=== PATIENT | male | born 1960 | race Caucasian/White ===

== ENCOUNTER 2019-10-17 17:07 | Inpatient (IN) | payer OTHER ==
[~2019-10-17 17:07] MED LIST: levETIRAcetam 500 MG IVPREMIX* 500 MG/100 ML BAG IV SCH
[2019-10-17] MEDS ORDERED: NS 0.9% 1000 ML** 1,000 ML IV ONE (17:14)
--- NOTE | 2019-10-17 17:22 | ED ---
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 Per EMS, the patient had been at work and a co-worker heard an unwitnessed thud in his cubicle, and the co-worker found the patient unresponsive with full-body seizure activity. After EMS arrived, and the patient became arousable, he had slurred speech. In the ED , the patient feels better but not completely like himself. He is nauseous and has a headache. He does not remember falling. He denies any fever, chills, erythema of eyes, sore throat, CP, SOB, cough, abdominal pain, vomiting, dysuria , hematuria, myalgia, neck pain, edema, numbness or tingling, or dizziness. His notes a new facial rash. He notes recent stress with his father passing last week. No recent sicknesses. Past medical history of childhood asthma. Nonsmoker, no alcohol use, no substance use. Medications reviewed. Allergies noted. - History of Current Complaint Stated Complaint: SEIZURES PER EMS Time Seen by Provider: 10/17/19 17:14 Hx Obtained From: Patient, Family/Public Affairs Officer - , EMS Onset/Duration: Sudden Onset, Resolved Timing: Sudden Onset Onset Severity: Severe Current Severity: Mild Pain Scale Used: 0-10 Numeric Character: Impaired Speech Aggravating: Unknown Alleviating: Spontanious Resolution Associated Signs and Symptoms: Positive: Headache, Loss of Consciousness, Impaired Speech. Negative: Numbness, Nausea/Vomiting, Fever, Chest Pain, Shortness of Breath TPA Considered: No - confirmed by Dr. Britton at [facility] - Allergy/Home Medications Allergies/Adverse Reactions: Allergies Allergy/AdvReac Type Severity Reaction Status Date / Time environmental Allergy Runny Nose Uncoded 10/17/19 17:44 Home Medications: Home Medications Loratadine/Pseudoephedrine [Allergy Relief D-24Hr Tablet] 1 tab PO DAILY PRN [History Confirmed 10/17/19] PMH/Surg Hx/FS Hx/Imm Hx Endocrine/Hematology History: Denies: Hx Diabetes Cardiovascular History: Denies: Hx Hypertension Respiratory History: Reports: Hx Asthma - as child - Surgical History Surgical History: None Surgery Procedure, Year, and Place: none Infectious Disease History: Denies: Traveled Outside the [place] in Last 30 Days - Family History Known Family History: Negative: Diabetes - Social History Alcohol Use: None Hx Substance Use: No Substance Use Type: Reports: None Hx Tobacco Use: No Smoking Status (MU): Never Smoked Tobacco Review of Systems Negative: Fever, Chills Negative: Erythema Negative: Sore Throat Negative: Chest Pain Negative: Shortness Of Breath, Cough Positive: Nausea. Negative: Abdominal Pain, Vomiting Negative: dysuria, hematuria Negative: Myalgia - neck, Edema Positive: Rash - on face Neurological/Mental Status: Other - LOC; Negative: dizziness Positive: Headache, Slurred Speech. Negative: Paresthesia, Numbness All Other Systems Reviewed And Are Negative: Yes Physical Exam - Summary Physical Exam Summary: Constitutional: Well-developed, Well-nourished, Alert. (-) Distressed Skin: Petechiae on face and around the orbits, I dont appreciate petechiae elseware; Warm, Dry HENT: Normocephalic; Atraumatic Eyes: Conjunctiva normal Neck: Musculoskeletal ROM normal neck. (-) JVD, (-) Stridor, (-) Tracheal deviation Cardio: Rhythm regular, rate normal, Heart sounds normal; Intact distal pulses; The pedal pulses are 2+ and symmetric. Radial pulses are 2+ and symmetric. (-) Murmur Pulmonary/Chest wall: Effort normal. (-) Crackles in bases of both lungs, (-) Respiratory distress, (-) Wheezes, (-) Rales Abd: Soft. (-) Tenderness, (-) Distension, (-) Guarding, (-) Rebound Musculoskeletal: (-) Edema Lymph: (-) Cervical adenopathy Neuro: Alert, Oriented x3, Strength normal, Cranial nerves II-XII are grossly intact. Speech is slightly slurred (-) Dysmetria, (-) Nystagmus, (-) Ataxia by finger to nose testing, (-) Sensory deficit. Psych: Mood and affect Normal GCS: 15 NIH: 1 (see scale) Triage Information Reviewed: Yes Vital Signs Reviewed: Yes - Luca Coma Scale Best Eye Response: 4 - Spontaneous Best Motor Response: 6 - Obeys Commands Best Verbal Response: 5 - Oriented Coma Scale Total: 15 Procedures - Sedation Patient Received Moderate/Deep Sedation with Procedure: No - Lumbar Puncture L4-L5 interspace Procedural Sedation: none Position: Lateral Decubitus - left Lumbar Puncture Note: Lumbar puncture performed in L4-L5 interspace with 5ml fluid obtained. Opening pressure of 29cm. Patient in left lateral decubitus position. He tolerated procedure well. Diagnostics - Laboratory Result Diagrams: 10/17/19 17:43 10/17/19 17:43 Lab Statement: Any lab studies that have been ordered have been reviewed, and results considered in the medical decision making process. - CT Brain CT CT Interpretation Completed By: Radiologist Summary of CT Findings: Impression: 1. Negative for intracranial hemorrhage or gross CT stigmata of ischemic stroke. ED physician has reviewed this report. Head CTA CT Interpretation Completed By: Radiologist Summary of CT Findings: Impression: 1. Unremarkable patent intracranial internal carotid arteries as well as the M1 and M2 segments of the middle cerebral arteries. 2. Unremarkable patent A1 and A2 segments of the anterior cerebral arteries and patent anterior communicating artery. 3. Unremarkable patent basilar artery and cerebellar artery origins. Patent RIGHT posterior cerebral artery is supplied both by the anterior and posterior circulation. Patent LEFT posterior cerebral artery is supplied primarily by a dominant LEFT posterior commuting artery with small contribution from a relative hypoplastic P1 segment. 4. No intracranial aneurysms evident. 5. Normal opacification of the dominant dural venous sinuses. ED physician has reviewed this report. - EKG 1737 Cardiac Rate: NL - 91 BPM EKG Rhythm: Sinus Rhythm Summary of EKG Findings: An EKG at 1737 reveals normal sinus rhythm at 91 BPM. No STEMI. ED physician has reviewed and interpreted this EKG. 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 Non-Paretic Hand: Both Correctly Best Gaze (Only Horizontal Eye Movement): Normal Visual Field Testing: No Visual Loss Facial Paresis-Pt to Smile & Close Eyes or Grimace Symmetry: Normal/Symmetrical Motor Function - Right Arm: No Drift-Holds 10 Seconds Motor Function - Left Arm: No Drift-Holds 10 Seconds Motor Function - Right Leg: No Drift-Holds 10 Seconds Motor Function - Left Leg: No Drift-Holds 10 Seconds Limb Ataxia-Must be out of Proportion to Weakness Present: Absent Sensory (Use Pinprick to Test Arms/Legs/Trunk/Face): Normal Best Language (Describe Picture, Name Items): No Aphasia Dysarthria (Read Several Words): Slurs Some Words Extinction and Inattention: No Abnormality Total Score: 1 NIH Stroke Scale Comment: completed at 1755 Re-Evaluation - Re-Evaluation First Eval Re-Evaluation Time: 17:50 Comment: Patient's states speech seems quiet and similar to when he is tired but is slurred compared to usual if not tired. He states he feels like he is getting weaker. Course/Dx - Course Course Of Treatment: Patient is a 59 y/o M arriving via ambulance with unwitnessed fall with unresponsiveness and full-body seizure activity followed by slurred speech that has improved. Patient doesnt remember falling. He is nauseous and has a headache. No neck pain. Denies chest discomfort, heaviness, or pressure. Physical exam is significant for slightly slurred speech, crackles in both lung bases, petechiae on face and around the orbits. I dont appreciate petechiae elseware. GCS 15, NIH 1. IV access obtained. Patient received fluids, Zofran. Blood work reveals glucose 135, POC glucose 131, lactic acid 3.3, negative troponin. An EKG at 1737 reveals normal sinus rhythm at 91 BPM, no STEMI. Brain CT impression is negative for intracranial hemorrhage or ischemic stroke. Head CTA impression reveals patent right posterior cerebral artery supplied by anterior and posterior circulation, patient left posterior cerebral artery is supplied primarily by a dominant left posterior commuting artery with small contribution from a relative hypoplastic P1 segment. I spoke with Dr. Campos at [facility], and he confirms patients symptoms to most likely be related to seizure. No TPA indicated; TPA relatively contraindicated. Dr. Alegre from neurology agrees with LP and admission to hospitalist. Lumbar puncture performed in L4-L5 interspace with 5ml fluid obtained. Opening pressure of 29cm. Patient in left lateral decubitus position. He tolerated procedure well. I discussed the patients case with Dr. Talley, who accepts the patient for admission. Patient agreeable with plan. - Diagnoses Provider Diagnoses: Petechiae, Slurred speech, Bilateral pneumonia, New onset seizure, Headache - Physician Notifications Discussed Care Of Patient With: Jono Britton - neurology [place] Time Discussed With Above Provider: 18:00 Instructed by Provider To: Other - I spoke with Dr. Britton at [facility], and he confirms patients symptoms to most likely be related to seizure. No TPA indicated; TPA relatively contraindicated. Dr. Alegre from neurology agrees with LP and admission to hospitalist. I discussed the patients case with Dr. Talley, who accepts the patient for admission. - Critical Care Time Critical Care Time: 30-74 min - 60 minutes Discharge ED - Sign-Out/Discharge Documenting (check all that apply): Patient Departure - Patient accepted for admission by Dr. Talley. - Discharge Plan Condition: Stable Disposition: ADMITTED TO [facility] Referrals: Zoran Saxena MD [Primary Care Provider] - - Attestation Statements Document Initiated by Scribe: Yes Documenting Scribe: Gianna Mcdaniels Provider For Whom Scribe is Documenting (Include Credential): Dr. Ok Bishop MD Scribe Attestation: I, Gianna Mcdaniels, scribed for Dr. Ok Bishop MD on 10/17/19 at 1924. Status of Scribe Document: Ready
[2019-10-17] MEDS ORDERED: Iodixanol* (CONTRAST) 320 MG/ML 100 ML SDV IV ONE (17:33)
[2019-10-17 17:51] LABS: ABS Basophils 0.1 10^3/ul (0-0.2); ABS Eosinophils 0.3 10^3/ul (0-0.6); ABS Lymphocytes 2.5 10^3/ul (1.0-4.8); ABS Monocytes 0.9 10^3/ul (0-0.8); ABS Neutrophils 5.9 10^3/ul (1.5-7.7); Hematocrit 43 % (42-52); Hemoglobin 15.3 g/dL (14.0-18.0); Lymphocyte % 25.5 %; Mean Corpuscular HGB Conc 36 g/dL (31-36); Mean Corpuscular Hemoglobin 30 pg (27-31); Mean Corpuscular Volume 85 fL (80-94); Mean Platelet Volume 7.8 fL (7.4-10.4); Platelet Count 280 10^3/uL (150-450); Red Blood Count 5.08 10^6 /uL (4.18-5.48); Red Cell Distribution Width 13 % (10-15); White Blood Count 9.6 10^3/uL (3.5-10.8)
[2019-10-17] MEDS ORDERED: NS 0.9% 1000 ML** 1,500 ML IV ONE (18:01)
[2019-10-17 18:02] LABS: Activated Partial Thrombo Time 27.6 seconds (26.0-38.0); INR 1.02 (0.82-1.09)
[2019-10-17] MEDS ORDERED: Vancomycin(*) 1,500 MG in NS 0.9% 250 ML* 250 ML IVPB ONE (18:13)
[2019-10-17] MEDS ORDERED: cefTRIAXone(*) 2 GM in NS 0.9% 100 ML* 100 ML IVPB ONE (18:13)
[2019-10-17 18:19] LABS: ALT 14 U/L (7-52); AST 18 U/L (13-39); Albumin 4.2 g/dL (3.2-5.2); Albumin/Globulin Ratio 1.8 (1-3); Alkaline Phosphatase 42 U/L (34-104); Anion Gap 8 mmol/L (2-11); BUN/Creatinine Ratio 15.2 (8-20); Blood Urea Nitrogen 15 mg/dL (6-24); CO2 Carbon Dioxide 25 mmol/L (22-32); Calcium 8.9 mg/dL (8.6-10.3); Chloride 106 mmol/L (101-111); Cholesterol 174 mg/dL; EGFR African American 93.6 (>60); EGFR Non-African American 77.4 (>60); Globulin 2.3 g/dL (2-4); Glucose 135 mg/dL (70-100); HDL Cholesterol 41.2 mg/dL; LDL Cholesterol 103 mg/dL; Potassium 3.5 mmol/L (3.5-5.0); Sodium 139 mmol/L (135-145); Total Protein 6.5 g/dL (6.4-8.9); Triglycerides 147 mg/dL
[2019-10-17] MEDS ORDERED: levETIRAcetam 1000MG IVPREMIX* 1,000 MG/100 ML BAG IVPB ONE (18:23)
[2019-10-17] MEDS ORDERED: Ondansetron INJ* 2 MG/ML VIAL IV ONE (18:23)
[2019-10-17 18:52] LABS: C Reactive Protein 1.23 mg/L (<8.01)
[2019-10-17 19:26] LABS: Alcohol < 10 mg/dL (<10)
[2019-10-17] MEDS ORDERED: Acyclovir IV(*) 750 MG in NS 0.9% 250 ML* 250 ML IVPB ONE (19:30)
[2019-10-17 19:34] LABS: Body Fluid Source Cerebral Spinal
[2019-10-17 19:47] LABS: Urine Appearance Clear; Urine Bilirubin Negative (Negative); Urine Blood Negative (Negative); Urine Color Straw; Urine Glucose Negative (Negative); Urine Ketones Negative (Negative); Urine Nitrite Negative (Negative); Urine Protein Negative (Negative); Urine Specific Gravity 1.038 (1.010-1.030); Urine Urobilinogen Negative (Negative)
[2019-10-17 19:48] LABS: CSF Glucose 75 mg/dL (40-70)
[2019-10-17 20:06] LABS: Body Fluid Mono 14 %; Body Fluid Other Cells 8
--- NOTE | 2019-10-17 22:05 | ADMNOTE ---
Subjective Interval History: this is my H/P 59 yo male with no known medical history came in via EMS with possible seizure. Pt was at work when a co-worker found in on the floor unresponsive then his body begun shaking. By the time EMS came, he was arousable, confused with slurred speech. When he made it to the ED, he felt better but does not remember what happened. He is nauseous and has a REED. Denies any chest discomfort, pressure. He has petechiae on face around his eyes. EKG showed NSR. Neurology was consulted with concerns for stroke, recommended a CT head and CTA and all came back negative. An LP was done to rule out meningitis, also negative. This is his first seizure, he has no medical history. No family history of seizures. His father recently from a fall. He does not smoke, does not drink alcohol, does not take any medications. Family History: Unchanged from Admission Social History: Unchanged from Admission Past Medical History: Unchanged from Admission Review of Systems - Measurements Intake and Output: Intake and Output Last 24 Hours 10/15/19 10/16/19 10/17/19 10/18/19 06:59 06:59 06:59 06:59 Intake Total 2600 Balance 2600 Weight 225 lb 12.054 oz Intake: IV Fluids 2600 - Review of Systems Constitutional Symptoms: Negative: Weight Gain, Weight Loss, Weakness, Fatigue, Fever, Night Sweats, Unexplained Falls, Other Dermatology: Negative: Normal, Rash, Skin Lesions, Cancer, Skin Lumps, Other HEENT: Negative: Normal, Change in Hearing, Vertigo, Dental Problems, Tinnitus, Sinus Problem, Other Eyes: Negative: Normal, Change in Vision, Double Vision, Eye Pain, Glaucoma, Cataract, Contacts or Glasses, Other Thyroid: Negative: Normal, Goiter, Thyroid Nodule, Cold Intolerance, Heat Intolerance , Sweatiness, Tremor, Frequent Defecation, Constipation, Palpitations, Primary Hypothyroidism, Primary Hyperthyroidism, Weight Loss, Weight Gain, Change in Skin/Hair, Change in Menstruation, Radiation Exposure, Other Pulmonary: Negative: Normal, Cough, Sputum, Hemoptysis, Wheezing, Respiratory Distress, Shortness of Breath, COPD, Asthma, Exercise Intolerance, Home Oxygen, Other Cardiology: Negative: Normal, Chest Pain, Shortness of Breath, Palpitations, Swelling of Ankles, Peripheral Vascular Dis, Edema, Faintness, Syncope, Claudication, Proximal NocturnalDyspnea, Orthopnoea, Other Gastroenterology: Negative: Normal, Abdominal Pain, Nausea, Vomiting, Anorexia, Indigestion, Difficulty Swallowing, Heartburn, Constipation, Diarrhea, Blood in Stools, Change in Bowel Habits, Haematemesis, Melena, Other Musculoskeletal: Negative: Joint Pain, Joint Stiffness, Arthritis, Osteoporosis, Low Back Pain , Sciatica, Joint Deformities, Kyphoscoliosis, Other Hematologic/Lymphatic: Negative: Anemia, Easy Bruising, Hx Leukemia, Hx Lymphoma, Use of Anticoagulant, Use of Antiplatelet Drugs, Other Neurology: Positive: Headache Negative: Normal, Migraines, Change in Vision, Diplopia, Dizziness, Change in Balancing, Change in Coordination, Change in Memory, Change in Speech, Change in Sphincter Function, Change in Walking, Numbness\Paresthesiae, Unexplained Weakness, Hx of Stroke\TIA, Hx of Seizures, Other Psychiatry: Negative: Normal, Depression, Anxiety, Depressed Mood, Anhedonia, Sexual Dysfunction, Weight Change, Guilt Feelings, Tearfulness, Unusual Fatigue, Unusual Anxiety, Suicidal Ideation, Hypomania, Eating Disorders, Other Objective Active Medications: Levetiracetam (Keppra Iv Premix*) 500 mg in 100 mls @ 400 mls/hr IV Q12H SLOAN Vital Signs - 8 hr 10/17/19 10/17/19 10/17/19 17:12 17:36 17:41 Temperature 96.5 F Pulse Rate 86 66 87 Respiratory 17 19 19 Rate Blood Pressure 136/79 136/79 (mmHg) O2 Sat by Pulse 96 86 96 Oximetry 10/17/19 10/17/19 10/17/19 17:57 18:00 18:02 Temperature Pulse Rate 80 85 84 Respiratory 17 19 17 Rate Blood Pressure 127/93 121/89 (mmHg) O2 Sat by Pulse 95 96 95 Oximetry 10/17/19 18:07 Temperature Pulse Rate 82 Respiratory 18 Rate Blood Pressure 126/86 (mmHg) O2 Sat by Pulse 94 Oximetry Oxygen Devices in Use Now: None Appearance: sluggish but oriented Eyes: No Scleral Icterus, PERRLA Ears/Nose/Mouth/Throat: NL Teeth, Lips, Gums, Mucous Membranes Moist Neck: NL Appearance and Movements; NL JVP, Trachea Midline Respiratory: Symmetrical Chest Expansion and Respiratory Effort, Clear to Auscultation Cardiovascular: NL Sounds; No Murmurs; No JVD, No Edema Abdominal: NL Sounds; No Tenderness; No Distention Lymphatic: No Cervical Adenopathy Skin: No Rash or Ulcers, No Nodules or Sclerosis Neurological: Alert and Oriented x 3, NL Sensation, NL Gait, NL Muscle Strength and Tone Result Diagrams: 10/17/19 17:43 10/17/19 17:43 Microbiology and Other Data: Microbiology 10/17/19 19:15 CSF Gram Stain (Tube 3) - Preliminary Cerebral Spinal Fluid Assess/Plan/Problems-Billing Assessment: - Patient Problems (1) Seizure Current Visit: Yes Status: Acute Code(s): R56.9 - UNSPECIFIED CONVULSIONS SNOMED Code(s): 41631898 Comment: new onset seizure witnessed by co-worker. Pt was postictal following the event Neurology was consulted, pt bolused iwth keppra. CTA and CT head normal. LP was normal. Will cont with Keppra 500 BID Spot EEG in am. MRI brain. (2) DVT prophylaxis Current Visit: Yes Status: Acute Code(s): Z29.9 - ENCOUNTER FOR PROPHYLACTIC MEASURES, UNSPECIFIED SNOMED Code(s): 909182648 Comment: josiah (3) Full code status Current Visit: Yes Status: Acute Code(s): Z78.9 - OTHER SPECIFIED HEALTH STATUS SNOMED Code(s): 802010205
[2019-10-18] MEDS: Enoxaparin(*) 30 MG/0.3 ML SYR SUBCUT SCH ×2 (00:34→23:11)
[2019-10-18] MEDS ORDERED: Acyclovir IV(*) 750 MG in NS 0.9% 250 ML* 250 ML IVPB SCH (03:30)
[2019-10-18] MEDS ORDERED: LORazepam INJ* 2 MG/ML 1 ML VIAL ONE ×2 (03:40→10:31)
[2019-10-18] MEDS ORDERED: levETIRAcetam 1000MG IVPREMIX* 1,000 MG/100 ML BAG IVPB ONE (04:04)
--- NOTE | 2019-10-18 04:52 | PN ---
Hospitalist Progress Note CAT call for fall and seizures Pt found unresponsive on the floor in the bathroom, fall unwitnessed. Then he went clonic for about 2 minutes. Pt was postictal for about 15 min. He responded to questions appropriately, he was oriented but sluggish. Pupils reactive. Stat CT head and CT spine for unwitnessed fall. Reviewed telemetry. There was a brief moment of bradycardia coinciding with the fall. But this was likely ictal bradycardia from the seizure itself. Otherwise no abnormal rhythm Transfer to ICU for close monitoring. Discussed with neurology, plan is to load with Keppra once more and continuing Keppra 500 BID. I would keep him NPO, get MRI in am and spot EEG as originally planned Seizure precautions and tele.
[2019-10-18 05:16] LABS: ABS Basophils 0.1 10^3/ul (0-0.2); ABS Lymphocytes 0.7 10^3/ul (1.0-4.8); ABS Monocytes 0.5 10^3/ul (0-0.8); ABS Neutrophils 13.1 10^3/ul (1.5-7.7); Eosinophil % 0.1 %; Hematocrit 42 % (42-52); Hemoglobin 14.4 g/dL (14.0-18.0); Lymphocyte % 4.6 %; Mean Corpuscular HGB Conc 34 g/dL (31-36); Mean Corpuscular Hemoglobin 29 pg (27-31); Mean Corpuscular Volume 85 fL (80-94); Mean Platelet Volume 7.8 fL (7.4-10.4); Platelet Count 258 10^3/uL (150-450); Red Blood Count 4.94 10^6 /uL (4.18-5.48); Red Cell Distribution Width 14 % (10-15); White Blood Count 14.4 10^3/uL (3.5-10.8)
[2019-10-18 05:31] LABS: BUN/Creatinine Ratio 13.5 (8-20); Calcium 8.6 mg/dL (8.6-10.3); EGFR African American 105.9 (>60); EGFR Non-African American 87.5 (>60); Potassium 3.7 mmol/L (3.5-5.0)
[2019-10-18] MEDS: Acetaminophen TAB* 325 MG PO PRN (08:11)
--- NOTE | 2019-10-18 10:25 | ECHO ---
*[facility]* [place] [address] Fax #: [phone] Transthoracic Echocardiogram Patient: Maco Montenegro : 1960 Study Date: 10/18/2019 Age: 59 Gender: M HR: 87 bpm Height: 71 in /180.3 cm BSA: 2.17 m^2 Weight: 214.6 lb /97.5 kg BMI: 30 kg/m^2 *Speech Therapist Early Intervention: Oralia Philip *Referring Physician: * Lulu Haider *Reading Physician: * Mulugeta Boston MD Indications: Syncope. History: Syncope. Conclusions Summary: - Left ventricle: The cavity size is normal. Wall thickness is mildly increased. Systolic function is normal. The estimated ejection fraction is 60-65%. - Normal cardiac chamber sizes. - Functionally benign heart valves. - There is no prior echocardiogram available to compare with at this time. Study data: Transthoracic echocardiogram. Procedure: Transthoracic echocardiography was performed. Image quality was good. Complete 2D, spectral Doppler, and color flow Doppler. Location: ICU Patient status: Inpatient. Patient room number: 6. Rhythm: Normal sinus rhythm. Findings Left ventricle: The cavity size is normal. Wall thickness is mildly increased. Systolic function is normal. The estimated ejection fraction is 60-65%. Wall motion is normal; there are no regional wall motion abnormalities. Left ventricular diastolic function parameters are indeterminate. Right ventricle: The cavity size is normal. Systolic function is normal. Left atrium: The atrium is normal in size. Right atrium: The atrium is normal in size. Mitral valve: The valve is structurally normal. There is trace regurgitation. Aortic valve: The valve is structurally normal. The valve is trileaflet. Cusp separation is normal. Transvalvular velocity is within the normal range. There is no evidence of stenosis. There is no significant regurgitation. Tricuspid valve: The valve is structurally normal. There is trace regurgitation. Pulmonic valve: The valve is structurally normal. There is no evidence of stenosis. There is trace regurgitation. Aorta: The aortic root appears normal. The aortic arch appears normal. Pericardium: There is no significant pericardial effusion. Pulmonary arteries: Systolic pressure can not be accurately estimated. Systemic veins: Inferior vena cava: Not well visualized. Pulmonary veins: The Pulmonary veins appear normal. Measurements Left ventricle Value Ref Right atrium continued Value Ref MENA, LAX 4.3 cm 4.2 - 5.8 ML dim, ES, A4C 3.0 cm 2.6 - 4.4 ESD, LAX 2.7 cm 2.5 - 4.0 SI dim, ES, A4C 5.0 cm 3.4 - 5.3 FS, LAX 38 % 25 - 43 PW, ED, LAX (H) 1.2 cm 0.6 - 1.0 Aortic valve Value Ref E', lat ignacia, TDI 11.5 cm/sec >=10.0 Peak v, S 1.34 m/sec - -------- E/e', lat ignacia, 7 VTI, S 26.0 cm ---- ----- TDI Mean grad, S 4.0 mm Hg --------- E', med ignacia, TDI 8.2 cm/sec >=7.0 Peak grad, S 7.0 mm Hg - -------- E/e', med ignacia, 10 YUNIER, VTI 2.51 cm^2 ---- ----- TDI YUNIER, Vmax 2.60 cm^2 --------- E', avg, TDI 9.9 cm/sec E/e', avg, TDI 8 <=14 Mitral valve Value R ef Peak E 0.8 m/sec --------- LVOT Value Ref Peak A 0.97 m/sec --------- Diam, S 2.00 cm Decel time 93 ms --------- Area 3.1 cm^2 Peak grad, D 2.6 mm Hg --------- Peak timo, S 1.11 m/sec Peak E/A ratio 0.8 --------- Mean grad, S 3 mm Hg SV 65 ml Pulmonic valve Value Ref Peak v, S 0.96 m/sec --------- Ventricular septum Value Ref Peak grad, S 4.0 mm Hg --------- IVS, ED (H) 1.1 cm 0.6 - 1.0 Aortic root Value Ref Right ventricle Value Ref Root diam 3.5 cm <4.3 MENA, LAX 2.7 cm MENA minor ax, 2.9 cm 1.9 - 3.5 Ascending aorta Value Ref A4C mid AAo AP diam, S 3.3 cm --------- Left atrium Value Ref Aortic arch Value Ref AP dim, ES 3.90 cm 3.00 - Arch diam 2.5 cm --------- 4.00 ML dim, A4C 3.5 cm Decending aorta Value Ref SI dim, A4C 5.3 cm Enmanuel peak timo 1.16 m/sec --------- Vol/bsa, ES, A/L 23 ml/m^2 16 - 34 Right atrium Value Ref SI dim, ES 5.0 cm 3.4 - 5.3 Legend: (L) and (H) shilpa values outside specified reference range. Prepared and electronically signed by Mulugeta Boston MD 10/18/2019 10:24
[2019-10-18] MEDS ORDERED: LORazepam INJ* 2 MG/ML 1 ML VIAL IV PUSH PRN (10:30)
[2019-10-18] MEDS ORDERED: Lorazepam PYXIS KEY PRN (10:30)
[2019-10-18] MEDS ORDERED: Lorazepam PYXIS KEY ONE (10:31)
[2019-10-18] MEDS ORDERED: Gadoteridol* (CONTRAST) 279.3 MG/ML 10 ML IV ONE ×2 (11:05→11:40)
[2019-10-18] MEDS: NS 0.9% 1000 ML** 1,000 ML IV SCH (11:35)
[2019-10-18] MEDS ORDERED: levETIRAcetam 500 MG IVPREMIX* 500 MG/100 ML BAG IV ONE (11:42)
--- NOTE | 2019-10-18 11:53 | PN ---
Progress Note - Progress Note Date of Service: 10/18/19 Note: Progress Note -- Critical Care 24 hour events/significant events: - Patient transferred to ICU after having a generalized seizure in the bathroom. He was started on keppra on admission - VSS, no further seizures overnight. Neurology consulted. 10/18/19 - Around 1120am, immediately after MRI was completed, as soon as he was taken out of patient had an episode of bradycardia into 30's, and then noted to have a generalized seizure. This lasted about 30 seconds and resolved spontaneously. Was given a total of 1.5G keppra. - Around 1330, monitor alarmed for bradycardic 30s and then brief reading of asystole. Patient was found to have a left and upward gaze, nonresponsive. Did have pulse. This lasted about 15 seconds and resolved. Given 1mg Ativan. He returned to baseline ROS: negative except for pertinent positives mentioned above Tele: NSR Vitals: Vital Signs 10/17/19 10/17/19 10/17/19 17:12 17:36 17:41 Temperature 96.5 F Pulse Rate 86 66 87 Respiratory 17 19 19 Rate Blood Pressure 136/79 136/79 (mmHg) O2 Sat by Pulse 96 86 96 Oximetry 10/17/19 10/17/19 10/17/19 17:57 18:00 18:02 Temperature Pulse Rate 80 85 84 Respiratory 17 19 17 Rate Blood Pressure 127/93 121/89 (mmHg) O2 Sat by Pulse 95 96 95 Oximetry 10/17/19 10/17/19 10/17/19 18:07 18:17 18:22 Temperature Pulse Rate 82 80 75 Respiratory 18 18 9 Rate Blood Pressure 126/86 126/87 136/86 (mmHg) O2 Sat by Pulse 94 95 97 Oximetry 10/17/19 10/17/19 10/17/19 18:27 18:32 18:37 Temperature Pulse Rate 88 89 Respiratory 20 20 21 Rate Blood Pressure 130/89 138/97 136/94 (mmHg) O2 Sat by Pulse 96 99 Oximetry 10/17/19 10/17/19 10/17/19 18:42 18:47 18:53 Temperature Pulse Rate 88 87 95 Respiratory 21 21 19 Rate Blood Pressure 141/93 132/103 162/107 (mmHg) O2 Sat by Pulse 99 99 100 Oximetry 10/17/19 10/17/19 10/17/19 19:00 19:43 19:53 Temperature Pulse Rate 115 Respiratory 25 21 23 Rate Blood Pressure 128/86 149/102 (mmHg) O2 Sat by Pulse 99 Oximetry 10/17/19 10/17/19 10/17/19 20:00 20:03 20:13 Temperature Pulse Rate Respiratory 20 22 20 Rate Blood Pressure 141/90 150/97 (mmHg) O2 Sat by Pulse 96 Oximetry 10/17/19 10/17/19 10/17/19 20:39 20:43 20:54 Temperature Pulse Rate Respiratory 20 17 26 Rate Blood Pressure 127/92 138/93 152/93 (mmHg) O2 Sat by Pulse Oximetry 10/17/19 10/17/19 10/17/19 21:00 21:03 21:13 Temperature Pulse Rate Respiratory 19 21 21 Rate Blood Pressure 129/90 135/87 (mmHg) O2 Sat by Pulse Oximetry 10/17/19 10/17/19 10/17/19 21:23 21:33 21:43 Temperature Pulse Rate Respiratory 14 17 24 Rate Blood Pressure 131/96 122/82 123/85 (mmHg) O2 Sat by Pulse Oximetry 10/17/19 10/17/19 10/17/19 21:53 22:00 22:03 Temperature Pulse Rate Respiratory 15 16 17 Rate Blood Pressure 135/95 135/90 (mmHg) O2 Sat by Pulse Oximetry 10/17/19 10/17/19 10/17/19 22:13 22:23 22:26 Temperature Pulse Rate Respiratory 25 17 18 Rate Blood Pressure 142/100 127/90 (mmHg) O2 Sat by Pulse Oximetry 10/17/19 10/17/19 10/17/19 22:32 22:43 22:54 Temperature 98.6 F Pulse Rate Respiratory 18 23 Rate Blood Pressure 132/83 141/109 (mmHg) O2 Sat by Pulse Oximetry 10/17/19 10/17/19 10/17/19 23:00 23:03 23:09 Temperature 98.6 F Pulse Rate 86 Respiratory 17 22 22 Rate Blood Pressure 137/86 137/86 (mmHg) O2 Sat by Pulse 99 Oximetry 10/17/19 10/18/19 10/18/19 23:15 03:19 04:31 Temperature 97.0 F 97.4 F Pulse Rate 85 78 89 Respiratory 18 16 16 Rate Blood Pressure 130/45 122/75 136/90 (mmHg) O2 Sat by Pulse 100 96 93 Oximetry 10/18/19 10/18/19 10/18/19 04:38 04:45 05:00 Temperature 95.5 F Pulse Rate 93 84 83 Respiratory 19 17 17 Rate Blood Pressure 136/90 138/92 138/96 (mmHg) O2 Sat by Pulse 94 96 97 Oximetry 10/18/19 10/18/19 10/18/19 05:15 05:30 05:46 Temperature Pulse Rate 78 79 80 Respiratory 17 15 16 Rate Blood Pressure 116/82 122/71 116/80 (mmHg) O2 Sat by Pulse 98 100 99 Oximetry 10/18/19 10/18/19 10/18/19 05:52 06:00 07:00 Temperature Pulse Rate 79 86 Respiratory 16 17 18 Rate Blood Pressure 127/80 162/95 (mmHg) O2 Sat by Pulse 99 97 Oximetry 10/18/19 10/18/19 10/18/19 07:59 08:00 09:00 Temperature 99.1 F Pulse Rate 86 92 Respiratory 16 19 Rate Blood Pressure 139/91 154/99 (mmHg) O2 Sat by Pulse 97 95 Oximetry 10/18/19 10/18/19 10/18/19 10:00 10:04 11:00 Temperature Pulse Rate 91 90 Respiratory 17 17 17 Rate Blood Pressure 153/92 (mmHg) O2 Sat by Pulse 95 95 Oximetry 10/18/19 10/18/19 10/18/19 11:28 11:34 11:56 Temperature 98.1 F Pulse Rate 115 107 Respiratory 23 Rate Blood Pressure 142/86 (mmHg) O2 Sat by Pulse 95 96 Oximetry 10/18/19 10/18/19 10/18/19 12:00 13:00 13:01 Temperature Pulse Rate 99 91 91 Respiratory 17 24 15 Rate Blood Pressure 145/88 115/91 (mmHg) O2 Sat by Pulse 96 94 93 Oximetry 10/18/19 13:32 Temperature Pulse Rate Respiratory 18 Rate Blood Pressure (mmHg) O2 Sat by Pulse Oximetry Intake and Output Last 24 Hours 10/16/19 10/17/19 10/18/19 10/19/19 06:59 06:59 06:59 06:59 Intake Total 2600 120 Output Total 300 400 Balance 2300 -280 Weight 209 lb 7.026 oz 209 lb 7.026 oz Intake: IV Fluids 2600 Oral 120 Output: Straight Cath 300 Residual 400 Temperature Probe 400 Other: Estimated Void Small # Voids 5 4 O2: RA Infusions: None Medications: Acetaminophen (Tylenol Tab*) 650 mg PO Q6H PRN PRN Reason: PAIN - MILD Last Admin: 10/18/19 08:11 Dose: 650 mg Enoxaparin Sodium (Lovenox(*)) 30 mg SUBCUT Q24H [facility] Last Admin: 10/18/19 00:34 Dose: 30 mg Sodium Chloride (Ns 0.9% 1000 Ml) 1,000 mls @ 75 mls/hr IV PER RATE [facility] Last Admin: 10/18/19 11:35 Dose: 75 mls/hr Levetiracetam (Keppra Iv Premix*) 1,000 mg in 100 mls @ 400 mls/hr IVPB 0900, 2101 [facility] Last Admin: 10/18/19 11:57 Dose: 400 mls/hr Valproic Acid 1,000 mg/ Sodium (Chloride) 110 mls @ 110 mls/hr IVPB ONCE ONE Stop: 10/18/19 15:29 Ketorolac Tromethamine (Toradol Inj*) 15 mg IV PUSH Q6H PRN PRN Reason: PAIN - MILD Lorazepam (Ativan Inj*) 2 mg IV PUSH Q2H PRN PRN Reason: seizures Miscellaneous (Ativan Pyxis Burg[place]) 1 ea N/A .ATIVAN IV BURGESS PRN PRN Reason: PYXIS BURGESS Valproic Acid (Depacon Iv(*)) 750 mg IVPB Q8HR [facility] Physical Exam: Constitutional: awake, alert, no distress, no diaphoresis Head: normocephalic, atraumatic Eyes: no pallor, no icterus ENT: moist mucous membranes Neck: soft, supple, no jvd, no stridor CVS: normal rate, regular, no murmur Chest/Resp: bilateral air entry, no rhales, no wheeze, no rhonchi, no acc muscle use Abdomen/GI: soft, nontender, nondistended, BS+ Ext/Msk: warm, pulses+, no edema Skin: intact, warm Neuro: awake, alert, orientedx3, moving all extremities, speech appears slowed and that is confirmed by his at the bedside Psych: normal affect Labs: Laboratory Results - last 24 hr 10/17/19 10/17/19 10/17/19 17:35 17:43 17:43 WBC 9.6 RBC 5.08 Hgb 15.3 Hct 43 MCV 85 MCH 30 MCHC 36 RDW 13 Plt Count 280 MPV 7.8 Neut % (Auto) 61.3 Lymph % (Auto) 25.5 Mineral % (Auto) 9.3 Eos % (Auto) 3.0 Baso % (Auto) 0.9 Absolute Neuts (auto) 5.9 Absolute Lymphs (auto) 2.5 Absolute Monos (auto) 0.9 H Absolute Eos (auto) 0.3 Absolute Basos (auto) 0.1 Absolute Nucleated RBC 0.0 Nucleated RBC % 0.0 INR (Anticoag Therapy) 1.02 APTT 27.6 Sodium Potassium Chloride Carbon Dioxide Anion Gap BUN Creatinine Est GFR ( Amer) Est GFR (Non-Af Amer) BUN/Creatinine Ratio Glucose POC Glucose (mg/dL) 131 H Lactic Acid Calcium Total Bilirubin AST ALT Alkaline Phosphatase Troponin I C-Reactive Protein Total Protein Albumin Globulin Albumin/Globulin Ratio Triglycerides Cholesterol LDL Cholesterol HDL Cholesterol TSH Urine Color Urine Appearance Urine pH Ur Specific [place] Urine Protein Urine Ketones Urine Blood Urine Nitrate Urine Bilirubin Urine Urobilinogen Ur Leukocyte Esterase Urine WBC (Auto) Urine RBC (Auto) Urine Bacteria Urine Glucose Fluid Source Fluid Volume Fluid Color Fluid Appearance Fluid WBC Fluid RBC Fluid Tot Cell Count Fluid Neutrophils Fluid Lymphocytes Fluid Monocytes Fluid Other Cells Fluid Cell Count Rvw By Fluid Comment CSF Cell Count Tube # CSF Glucose CSF Total Protein Serum Alcohol 10/17/19 10/17/19 10/17/19 17:43 17:43 19:15 WBC RBC Hgb Hct MCV MCH MCHC RDW Plt Count MPV Neut % (Auto) Lymph % (Auto) Mineral % (Auto) Eos % (Auto) Baso % (Auto) Absolute Neuts (auto) Absolute Lymphs (auto) Absolute Monos (auto) Absolute Eos (auto) Absolute Basos (auto) Absolute Nucleated RBC Nucleated RBC % INR (Anticoag Therapy) APTT Sodium 139 Potassium 3.5 Chloride 106 Carbon Dioxide 25 Anion Gap 8 BUN 15 Creatinine 0.99 Est GFR ( Amer) 93.6 Est GFR (Non-Af Amer) 77.4 BUN/Creatinine Ratio 15.2 Glucose 135 H POC Glucose (mg/dL) Lactic Acid 3.3 H* Calcium 8.9 Total Bilirubin 0.40 AST 18 ALT 14 Alkaline Phosphatase 42 Troponin I 0.00 C-Reactive Protein 1.23 Total Protein 6.5 Albumin 4.2 Globulin 2.3 Albumin/Globulin Ratio 1.8 Triglycerides 147 Cholesterol 174 LDL Cholesterol 103 HDL Cholesterol 41.2 TSH Urine Color Urine Appearance Urine pH Ur Specific [place] Urine Protein Urine Ketones Urine Blood Urine Nitrate Urine Bilirubin Urine Urobilinogen Ur Leukocyte Esterase Urine WBC (Auto) Urine RBC (Auto) Urine Bacteria Urine Glucose Fluid Source Fluid Volume Fluid Color Fluid Appearance Fluid WBC Fluid RBC Fluid Tot Cell Count Fluid Neutrophils Fluid Lymphocytes Fluid Monocytes Fluid Other Cells Fluid Cell Count Rvw By Fluid Comment CSF Cell Count Tube # CSF Glucose 75 H CSF Total Protein 54 H Serum Alcohol < 10 10/17/19 10/17/19 10/17/19 19:15 19:20 21:03 WBC RBC Hgb Hct MCV MCH MCHC RDW Plt Count MPV Neut % (Auto) Lymph % (Auto) Mineral % (Auto) Eos % (Auto) Baso % (Auto) Absolute Neuts (auto) Absolute Lymphs (auto) Absolute Monos (auto) Absolute Eos (auto) Absolute Basos (auto) Absolute Nucleated RBC Nucleated RBC % INR (Anticoag Therapy) APTT Sodium Potassium Chloride Carbon Dioxide Anion Gap BUN Creatinine Est GFR ( Amer) Est GFR (Non-Af Amer) BUN/Creatinine Ratio Glucose POC Glucose (mg/dL) Lactic Acid 1.8 Calcium Total Bilirubin AST ALT Alkaline Phosphatase Troponin I C-Reactive Protein Total Protein Albumin Globulin Albumin/Globulin Ratio Triglycerides Cholesterol LDL Cholesterol HDL Cholesterol TSH Urine Color Straw Urine Appearance Clear Urine pH 7.0 Ur Specific [place] 1.038 H Urine Protein Negative Urine Ketones Negative Urine Blood Negative Urine Nitrate Negative Urine Bilirubin Negative Urine Urobilinogen Negative Ur Leukocyte Esterase Negative Urine WBC (Auto) Urine RBC (Auto) Urine Bacteria Urine Glucose Negative Fluid Source Cerebral spinal Fluid Volume 2.0 Fluid Color Colorless Fluid Appearance Clear Fluid WBC 16 Fluid RBC 16 Fluid Tot Cell Count 73 Fluid Neutrophils Not Reportable Fluid Lymphocytes 86 Fluid Monocytes 14 Fluid Other Cells 8 Fluid Cell Count Rvw By Fluid Comment CSF Cell Count Tube # 4 CSF Glucose CSF Total Protein Serum Alcohol 10/18/19 10/18/19 10/18/19 05:00 05:00 11:48 WBC 14.4 H RBC 4.94 Hgb 14.4 Hct 42 MCV 85 MCH 29 MCHC 34 RDW 14 Plt Count 258 MPV 7.8 Neut % (Auto) 90.9 Lymph % (Auto) 4.6 Mineral % (Auto) 3.8 Eos % (Auto) 0.1 Baso % (Auto) 0.6 Absolute Neuts (auto) 13.1 H Absolute Lymphs (auto) 0.7 L Absolute Monos (auto) 0.5 Absolute Eos (auto) 0.0 Absolute Basos (auto) 0.1 Absolute Nucleated RBC 0.0 Nucleated RBC % 0.0 INR (Anticoag Therapy) APTT Sodium 136 Potassium 3.7 Chloride 107 Carbon Dioxide 20 L Anion Gap 9 BUN 12 Creatinine 0.89 Est GFR ( Amer) 105.9 Est GFR (Non-Af Amer) 87.5 BUN/Creatinine Ratio 13.5 Glucose 185 H POC Glucose (mg/dL) Lactic Acid Calcium 8.6 Total Bilirubin AST ALT Alkaline Phosphatase Troponin I C-Reactive Protein Total Protein Albumin Globulin Albumin/Globulin Ratio Triglycerides Cholesterol LDL Cholesterol HDL Cholesterol TSH 2.42 Urine Color Urine Appearance Urine pH Ur Specific [place] Urine Protein Urine Ketones Urine Blood Urine Nitrate Urine Bilirubin Urine Urobilinogen Ur Leukocyte Esterase Urine WBC (Auto) Urine RBC (Auto) Urine Bacteria Urine Glucose Fluid Source Fluid Volume Fluid Color Fluid Appearance Fluid WBC Fluid RBC Fluid Tot Cell Count Fluid Neutrophils Fluid Lymphocytes Fluid Monocytes Fluid Other Cells Fluid Cell Count Rvw By Fluid Comment CSF Cell Count Tube # CSF Glucose CSF Total Protein Serum Alcohol 10/18/19 13:00 WBC RBC Hgb Hct MCV MCH MCHC RDW Plt Count MPV Neut % (Auto) Lymph % (Auto) Mineral % (Auto) Eos % (Auto) Baso % (Auto) Absolute Neuts (auto) Absolute Lymphs (auto) Absolute Monos (auto) Absolute Eos (auto) Absolute Basos (auto) Absolute Nucleated RBC Nucleated RBC % INR (Anticoag Therapy) APTT Sodium Potassium Chloride Carbon Dioxide Anion Gap BUN Creatinine Est GFR ( Amer) Est GFR (Non-Af Amer) BUN/Creatinine Ratio Glucose POC Glucose (mg/dL) Lactic Acid Calcium Total Bilirubin AST ALT Alkaline Phosphatase Troponin I C-Reactive Protein Total Protein Albumin Globulin Albumin/Globulin Ratio Triglycerides Cholesterol LDL Cholesterol HDL Cholesterol TSH Urine Color Yellow Urine Appearance Clear Urine pH 6.0 Ur Specific [place] 1.017 Urine Protein Negative Urine Ketones Negative Urine Blood 2+ A Urine Nitrate Negative Urine Bilirubin Negative Urine Urobilinogen Negative Ur Leukocyte Esterase Negative Urine WBC (Auto) Trace(0-5/hpf) Urine RBC (Auto) 3+(>10/hpf) A Urine Bacteria Absent Urine Glucose Negative Fluid Source Fluid Volume Fluid Color Fluid Appearance Fluid WBC Fluid RBC Fluid Tot Cell Count Fluid Neutrophils Fluid Lymphocytes Fluid Monocytes Fluid Other Cells Fluid Cell Count Rvw By Fluid Comment CSF Cell Count Tube # CSF Glucose CSF Total Protein Serum Alcohol Imaging: Chest xray 10/18: Low lung volumes, mild right basilar subsegmental atelectasis Echo 10/18: EF 60-65% Cervical spine CT: No acute findings CTH 10/18: No acute changes CTA head and neck: negative Assessment: 59M with no known medical history presents on 10/17 after experiencing a generalized seizure at work with a post-ictal period. Seizure lasted about 2 minutes. He was admitted to floor and then had another generalized seizure while in the bathroom. This also lasted 2 minutes. Transferred to ICU for monitoring. 10/18: Patient had another generalized seizures in the MRI room and then a partial seizure about 2hours later. - New onset seizures - Bradycardia Plan: Neuro- - New onset seizures: acute. EEG neg this AM. MRI neg for abnormalities. LP done in ED and somewhat unremarkable - Will be repeating LP and sending out additional labs. Started empiric coverage for meningitis. - Increased Keppra to 1G BID and added depakote after 3rd seizure - Ativan PRN only for seizures -Delirium prec; avoid BDZ CVS- - Has been having bradycardia into 30's either right before or during the seizures. There was one reading of asystole for 5-10seconds the last episode. Resolved without intervention. Cardiology was consulted -Maintain MAP>65 Resp- - No active issues -Keep sat>92% -Aspiration prec, Pulmonary Toilet ID- Afebrile but WBC slightly elevated. Recurrent seizures. R/o meningitis. Started empiric antibiotics GI- -Nutrition: NPO until seizure free for 24hrs Renal- -strict I/O, replete to keep K>4, Mg>2 -thomas since patient has been having urinary retention and needed 2 straight caths Heme- - Lovenox for DVT proph Endo-Maintain BG<200, insulin protocol as needed Musculsk- pressure ulcer prophylaxis. Bedrest. Wounds- none Nutrition-NPO DVT prophylaxis:lovenox Thomas Cathetor: Disposition: Patient requires Critical Care/ICU for frequent seizures, unknown etiology, r/o meningitis Patient clinical status: critical Code Status: FULL Total Critical Care time is 60 minutes
[2019-10-18] MEDS: levETIRAcetam 1000MG IVPREMIX* 1,000 MG/100 ML BAG IVPB SCH ×2 (11:57→20:40)
[2019-10-18] MEDS ORDERED: levETIRAcetam 1000MG IVPREMIX* 1,000 MG/100 ML BAG IVPB SCH (12:00)
[2019-10-18 12:46] LABS: TSH (Thyroid Stimulating Horm) 2.42 mcIU/mL (0.34-5.60)
[2019-10-18 13:19] LABS: Urine Appearance Clear; Urine Bilirubin Negative (Negative); Urine Blood 2+ (Negative); Urine Color Yellow; Urine Glucose Negative (Negative); Urine Ketones Negative (Negative); Urine Nitrite Negative (Negative); Urine Protein Negative (Negative); Urine Specific Gravity 1.017 (1.010-1.030); Urine Urobilinogen Negative (Negative)
[2019-10-18 13:23] LABS: Urine Bacteria Absent (Absent); Urine Red Blood Cell 3+(>10/hpf) (Absent); Urine White Blood Cell Trace(0-5/hpf) (Absent)
[2019-10-18] MEDS ORDERED: Atropine SYRINGE* 0.1 MG/ML 10 ML SYRINGE (1 MG) ONE ×2 (13:28→23:55)
[2019-10-18 14:27] LABS: Albumin 4.3 g/dL (3.2-5.2); Calcium 9.3 mg/dL (8.6-10.3); Potassium 3.7 mmol/L (3.5-5.0); Total Bilirubin 0.7 mg/dL (0.2-1.0)
[2019-10-18] MEDS ORDERED: Valproic Acid IV(*) 1,000 MG in NS 0.9% 100 ML* 100 ML IVPB ONE (14:30)
[2019-10-18 14:32] LABS: Albumin/Globulin Ratio 1.8 (1-3); BUN/Creatinine Ratio 11.1 (8-20); EGFR African American 84.7 (>60); Globulin 2.4 g/dL (2-4); Total Protein 6.7 g/dL (6.4-8.9)
[2019-10-18] MEDS: Acyclovir IV(*) 750 MG in NS 0.9% 250 ML* 250 ML IVPB SCH ×2 (15:18→23:09)
[2019-10-18 15:20] LABS: Body Fluid Source Cerebral Spinal
[2019-10-18] MEDS: Ketorolac INJ* 15 MG/ML 1 ML VIAL IV PUSH PRN (15:22)
[2019-10-18 15:40] LABS: CSF Glucose 81 mg/dL (40-70)
[2019-10-18] MEDS ORDERED: KCL 20 MEQ/100 ML IVPREMIX* 20 MEQ/100 ML BAG IV SCH (16:00)
--- NOTE | 2019-10-18 16:03 | PN ---
Date of Service: 10/18/19 Vital Signs: Temp Pulse Resp BP SpO2 FiO2 98.1 F 84 17 133/82 93 10/18/19 11:56 10/18/19 15:00 10/18/19 15:00 10/18/19 14:00 10/18/19 15:00 Physical Exam: Gen: HEENT: Lungs: Cardiac: Abdomen: Extremities: Neuro: Fluid Balance (Past 24 Hours): I= O= Net Intake & Output 10/16/19 10/17/19 10/18/19 10/19/19 06:59 06:59 06:59 06:59 Intake Total 2600 120 Output Total 300 590 Balance 2300 -470 Weight 209 lb 7.026 oz 209 lb 7.026 oz Intake: IV Fluids 2600 Oral 120 Output: [place] 190 Straight Cath 300 Residual 400 Temperature Probe 400 Other: Estimated Void Small Date of Last Bowel 10/17/2019 Movement # Voids 5 4 Labs: Laboratory Results - last 24 hr 10/17/19 10/17/19 10/17/19 17:35 17:43 17:43 WBC 9.6 RBC 5.08 Hgb 15.3 Hct 43 MCV 85 MCH 30 MCHC 36 RDW 13 Plt Count 280 MPV 7.8 Neut % (Auto) 61.3 Lymph % (Auto) 25.5 Gray % (Auto) 9.3 Eos % (Auto) 3.0 Baso % (Auto) 0.9 Absolute Neuts (auto) 5.9 Absolute Lymphs (auto) 2.5 Absolute Monos (auto) 0.9 H Absolute Eos (auto) 0.3 Absolute Basos (auto) 0.1 Absolute Nucleated RBC 0.0 Nucleated RBC % 0.0 INR (Anticoag Therapy) 1.02 APTT 27.6 Sodium Potassium Chloride Carbon Dioxide Anion Gap BUN Creatinine Est GFR ( Amer) Est GFR (Non-Af Amer) BUN/Creatinine Ratio Glucose POC Glucose (mg/dL) 131 H Lactic Acid Calcium Total Bilirubin AST ALT Alkaline Phosphatase Troponin I C-Reactive Protein Total Protein Albumin Globulin Albumin/Globulin Ratio Triglycerides Cholesterol LDL Cholesterol HDL Cholesterol TSH Urine Color Urine Appearance Urine pH Ur Specific [place] Urine Protein Urine Ketones Urine Blood Urine Nitrate Urine Bilirubin Urine Urobilinogen Ur Leukocyte Esterase Urine WBC (Auto) Urine RBC (Auto) Urine Bacteria Urine Glucose Fluid Source Fluid Volume Fluid Color Fluid Appearance Fluid WBC Fluid RBC Fluid Tot Cell Count Fluid Neutrophils Fluid Lymphocytes Fluid Monocytes Fluid Other Cells Fluid Cell Count Rvw By Fluid Comment CSF Cell Count Tube # CSF Glucose CSF Total Protein Serum Alcohol 10/17/19 10/17/19 10/17/19 17:43 17:43 19:15 WBC RBC Hgb Hct MCV MCH MCHC RDW Plt Count MPV Neut % (Auto) Lymph % (Auto) Gray % (Auto) Eos % (Auto) Baso % (Auto) Absolute Neuts (auto) Absolute Lymphs (auto) Absolute Monos (auto) Absolute Eos (auto) Absolute Basos (auto) Absolute Nucleated RBC Nucleated RBC % INR (Anticoag Therapy) APTT Sodium 139 Potassium 3.5 Chloride 106 Carbon Dioxide 25 Anion Gap 8 BUN 15 Creatinine 0.99 Est GFR ( Amer) 93.6 Est GFR (Non-Af Amer) 77.4 BUN/Creatinine Ratio 15.2 Glucose 135 H POC Glucose (mg/dL) Lactic Acid 3.3 H* Calcium 8.9 Total Bilirubin 0.40 AST 18 ALT 14 Alkaline Phosphatase 42 Troponin I 0.00 C-Reactive Protein 1.23 Total Protein 6.5 Albumin 4.2 Globulin 2.3 Albumin/Globulin Ratio 1.8 Triglycerides 147 Cholesterol 174 LDL Cholesterol 103 HDL Cholesterol 41.2 TSH Urine Color Urine Appearance Urine pH Ur Specific [place] Urine Protein Urine Ketones Urine Blood Urine Nitrate Urine Bilirubin Urine Urobilinogen Ur Leukocyte Esterase Urine WBC (Auto) Urine RBC (Auto) Urine Bacteria Urine Glucose Fluid Source Fluid Volume Fluid Color Fluid Appearance Fluid WBC Fluid RBC Fluid Tot Cell Count Fluid Neutrophils Fluid Lymphocytes Fluid Monocytes Fluid Other Cells Fluid Cell Count Rvw By Fluid Comment CSF Cell Count Tube # CSF Glucose 75 H CSF Total Protein 54 H Serum Alcohol < 10 10/17/19 10/17/19 10/17/19 19:15 19:20 21:03 WBC RBC Hgb Hct MCV MCH MCHC RDW Plt Count MPV Neut % (Auto) Lymph % (Auto) Gray % (Auto) Eos % (Auto) Baso % (Auto) Absolute Neuts (auto) Absolute Lymphs (auto) Absolute Monos (auto) Absolute Eos (auto) Absolute Basos (auto) Absolute Nucleated RBC Nucleated RBC % INR (Anticoag Therapy) APTT Sodium Potassium Chloride Carbon Dioxide Anion Gap BUN Creatinine Est GFR ( Amer) Est GFR (Non-Af Amer) BUN/Creatinine Ratio Glucose POC Glucose (mg/dL) Lactic Acid 1.8 Calcium Total Bilirubin AST ALT Alkaline Phosphatase Troponin I C-Reactive Protein Total Protein Albumin Globulin Albumin/Globulin Ratio Triglycerides Cholesterol LDL Cholesterol HDL Cholesterol TSH Urine Color Straw Urine Appearance Clear Urine pH 7.0 Ur Specific [place] 1.038 H Urine Protein Negative Urine Ketones Negative Urine Blood Negative Urine Nitrate Negative Urine Bilirubin Negative Urine Urobilinogen Negative Ur Leukocyte Esterase Negative Urine WBC (Auto) Urine RBC (Auto) Urine Bacteria Urine Glucose Negative Fluid Source Cerebral spinal Fluid Volume 2.0 Fluid Color Colorless Fluid Appearance Clear Fluid WBC 16 Fluid RBC 16 Fluid Tot Cell Count 73 Fluid Neutrophils Not Reportable Fluid Lymphocytes 86 Fluid Monocytes 14 Fluid Other Cells 8 Fluid Cell Count Rvw By Fluid Comment CSF Cell Count Tube # 4 CSF Glucose CSF Total Protein Serum Alcohol 10/18/19 10/18/19 10/18/19 05:00 05:00 11:48 WBC 14.4 H RBC 4.94 Hgb 14.4 Hct 42 MCV 85 MCH 29 MCHC 34 RDW 14 Plt Count 258 MPV 7.8 Neut % (Auto) 90.9 Lymph % (Auto) 4.6 Gray % (Auto) 3.8 Eos % (Auto) 0.1 Baso % (Auto) 0.6 Absolute Neuts (auto) 13.1 H Absolute Lymphs (auto) 0.7 L Absolute Monos (auto) 0.5 Absolute Eos (auto) 0.0 Absolute Basos (auto) 0.1 Absolute Nucleated RBC 0.0 Nucleated RBC % 0.0 INR (Anticoag Therapy) APTT Sodium 136 140 Potassium 3.7 3.7 Chloride 107 105 Carbon Dioxide 20 L 19 L Anion Gap 9 16 H BUN 12 12 Creatinine 0.89 1.08 Est GFR ( Amer) 105.9 84.7 Est GFR (Non-Af Amer) 87.5 70.0 BUN/Creatinine Ratio 13.5 11.1 Glucose 185 H 128 H POC Glucose (mg/dL) Lactic Acid Calcium 8.6 9.3 Total Bilirubin 0.70 AST 22 ALT 17 Alkaline Phosphatase 50 Troponin I C-Reactive Protein Total Protein 6.7 Albumin 4.3 Globulin 2.4 Albumin/Globulin Ratio 1.8 Triglycerides Cholesterol LDL Cholesterol HDL Cholesterol TSH 2.42 Urine Color Urine Appearance Urine pH Ur Specific [place] Urine Protein Urine Ketones Urine Blood Urine Nitrate Urine Bilirubin Urine Urobilinogen Ur Leukocyte Esterase Urine WBC (Auto) Urine RBC (Auto) Urine Bacteria Urine Glucose Fluid Source Fluid Volume Fluid Color Fluid Appearance Fluid WBC Fluid RBC Fluid Tot Cell Count Fluid Neutrophils Fluid Lymphocytes Fluid Monocytes Fluid Other Cells Fluid Cell Count Rvw By Fluid Comment CSF Cell Count Tube # CSF Glucose CSF Total Protein Serum Alcohol 10/18/19 10/18/19 13:00 14:57 WBC RBC Hgb Hct MCV MCH MCHC RDW Plt Count MPV Neut % (Auto) Lymph % (Auto) Gray % (Auto) Eos % (Auto) Baso % (Auto) Absolute Neuts (auto) Absolute Lymphs (auto) Absolute Monos (auto) Absolute Eos (auto) Absolute Basos (auto) Absolute Nucleated RBC Nucleated RBC % INR (Anticoag Therapy) APTT Sodium Potassium Chloride Carbon Dioxide Anion Gap BUN Creatinine Est GFR ( Amer) Est GFR (Non-Af Amer) BUN/Creatinine Ratio Glucose POC Glucose (mg/dL) Lactic Acid Calcium Total Bilirubin AST ALT Alkaline Phosphatase Troponin I C-Reactive Protein Total Protein Albumin Globulin Albumin/Globulin Ratio Triglycerides Cholesterol LDL Cholesterol HDL Cholesterol TSH Urine Color Yellow Urine Appearance Clear Urine pH 6.0 Ur Specific [place] 1.017 Urine Protein Negative Urine Ketones Negative Urine Blood 2+ A Urine Nitrate Negative Urine Bilirubin Negative Urine Urobilinogen Negative Ur Leukocyte Esterase Negative Urine WBC (Auto) Trace(0-5/hpf) Urine RBC (Auto) 3+(>10/hpf) A Urine Bacteria Absent Urine Glucose Negative Fluid Source Fluid Volume Fluid Color Fluid Appearance Fluid WBC Fluid RBC Fluid Tot Cell Count Fluid Neutrophils Fluid Lymphocytes Fluid Monocytes Fluid Other Cells Fluid Cell Count Rvw By Fluid Comment CSF Cell Count Tube # CSF Glucose 81 H CSF Total Protein 49 H Serum Alcohol Impression: I have seen and examined the patient with Ely Schultzing 1. Seizures 2. fall 3. Symptomatic bradycardia with seizure Plan: Critical Care Time: The patient has had recurrent short seizures; We will treat with keppra and depakote -check levels in am -Repeat Lumbar puncture to be done -lyme serology -NDS viral panel on CSF -Seizure precautions -cardiac evaluaiton for bradycardia associated with seizures -Keep K above 4 and Magnesium above 2 -appreciate neurology and cardiac input
--- NOTE | 2019-10-18 16:11 | BRIEFOPN ---
Brief Operative/Procedure Note - Operation Details Pre-Op Diagnosis: Encephalopathy, Seizures Post-Op Diagnosis: Seizures Procedures: Lumbar puncture Surgeon(s)/Proceduralists: Roberto Bryant Anesthesia: topical lidocaine Estimated Blood Loss: none Findings: clear fluid 4 cc Specimen(s)/Culture(s) Description: sent for gram stain, culture, total protein , cell count and differential, [place] viral panel and hsv pcr. Complications: none
--- NOTE | 2019-10-18 16:17 | CONS ---
NEUROLOGY CONSULTATION: DATE OF CONSULT: 10/18/19 LOCATION: He is an inpatient in ICU, bed 6. REFERRING PROVIDER: Dr. Roberto Bryant. CHIEF COMPLAINT: New-onset seizures. HISTORY OF PRESENT ILLNESS: Maco Montenegro is a 59-year-old man who was admitted to the hospital last night when he presented to the emergency room with a new onset seizure. History is from the patient who I saw earlier this morning and his spouse who is present. He was at work yesterday, I believe, in the early afternoon and he remembers a sense of deon vu and the next thing he recalls he was in an ambulance on the way to the hospital. He remembers being confused and trying to sort out why he was in an ambulance and what had happened. His says that she was not far from his office where they live when she was called. She was called, I believe , by his co-workers and was told that he had a convulsion. When she got there, he was on his face. He came around and was responsive, but confused. He does not recall that part of the time from yesterday. He was brought into the emergency room where he was able to provide some history. He had some nausea and a headache. He had some rash around his orbits and petechiae, which apparently was new. He did not have a fever. He underwent a lumbar puncture because of the rash and the new-onset seizures and the results will be reviewed below. His initial CBC and chemistries were unremarkable. His spinal fluid was notable for a glucose of 75, protein of 54, and elevated white blood cell count at 16, red blood cells 16. Differential was 86% lymphocytes and 14% monocytes. Gram stain was subsequently negative. He was given Keppra 1000 mg and admitted to the regular medical floor. He then had a seizure on the medical floor last night. He apparently fell and was bradycardic. He was transferred to the intensive care unit. He was given additional Keppra [address] He [address] a [address] scan of the brain in the emergency room at presentation interpreted as normal. I reviewed the images and I agree. He had a CT angiogram of the brain as well, which was also interpreted as normal. He had a telestroke consultation with the [facility] and they did not feel that he was a tPA candidate nor an LVO case. I first evaluated him this morning at about 8:30. He was able to provide a coherent history other than being amnestic from the time that he experienced deon vu in his office to the time that he was aware that he was in an ambulance. He did not have a headache this morning. He had not experienced episodes of deon vu in the past and had not had any seizures before. There was no history of head trauma, meningitis, or encephalitis. Since I saw him in the morning, he had an MRI scan of the brain, which was interpreted as normal. I reviewed the images and I agree, although there is a question in my mind of some mild enhancement of the meninges in the right parietal hemisphere. He had another episode after he got back from the MRI where he had diminished responsiveness and was bradycardic. I spoke with Dr. Bryant over the phone and he had been given at that point 2500 mg of Keppra and so we decided to start Depakote, which was just ordered. Dr. Bryant said over the phone that after the event his left face and arm were weak. Since the episode of diminished responsiveness and bradycardia, he has been somnolent. He did receive a dose of lorazepam after that episode. He had traveled to [place] and was there for a week. His father was sick in the hospital with advanced Alzheimer's disease and pneumonia and ultimately . He was not sick there and did not have any fevers or chills. They had also traveled within the last month, I believe, to [place] show. PAST MEDICAL HISTORY: Notable for good health. He has some environmental allergies and had a history of asthma. MEDICATIONS: His only medications were as needed [id number] decongestants. ALLERGIES: He does not have any drug allergies. FAMILY HISTORY: Notable for Alzheimer's disease in his father, who at age 90. Family history is otherwise noncontributory. REVIEW OF SYSTEMS: Earlier today when he was more coherent was negative for fevers, chills, headaches other than in the emergency room yesterday, head trauma, history of meningitis, history of prematurity, or history of developmental delay. There is no history of heart disease, hypertension, or diabetes. There has been no recent weight loss. There is no history of thyroid disease. No problems with chest pain or shortness of breath. PHYSICAL EXAM: Most recent temperature recorded as 98.1, T-max was 99.1 earlier today. His blood pressure has been stable and most recently 115/91. His heart rate was running in the 80s, but he was down into the 30s when he had the most recent presumably ictal event. Respiratory rate is 15 and oxygen saturation is 93% on room air. Lungs were clear bilaterally. He had a somewhat heliotrope rash on his lids bilaterally. There were a few petechiae scattered around his orbits. I did not see any rashes anywhere else on his limbs or trunk. There were no embolic phenomena in the hands or feet. Neck is supple. Heart tones are normal. Lungs were clearly anterolaterally. There were no cervical bruits. Oral mucosa was moist and atraumatic. Neurological Exam: Earlier this morning, pupils were equal at about 4 mm, reacting to light to 2 mm. Funduscopic exam revealed sharp discs bilaterally. Repeat funduscopic exam just about half an hour ago also revealed sharp discs. Eye movements were full this morning. Visual lopez were full to confrontation. Facial musculature was symmetric. Facial sensation to light touch was symmetric earlier today. Speech was clear. Motor exam was normal in the limbs earlier today. This afternoon, he is too somnolent to get a good assessment. There were no abnormalities of tone. There was no drift of any limb. Bemgkv-xd-hjjh maneuver was normal earlier today. There was no tremor or myoclonus. Sensory exam in the limbs was intact to light touch earlier today. Reflexes were intact and symmetric in the upper extremities, brisk at the knees, grade 2 at the ankles. Plantar response was flexor on the right earlier today and equivocal on the left and this afternoon he has an equivocal left Babinski sign. Earlier today, he was alert and oriented and a good detailed historian. Memory was intact other than the time of about the episode at his office. Language is fluent. This afternoon after his event of bradycardia he was somnolent and difficult to rouse. DIAGNOSTIC STUDIES/LAB DATA: Notable for a CBC which was normal on admission, this morning his white blood cell count is up to 14.4 and absolute neutrophils are up to 13.1. Chemistries from yesterday and today are unremarkable other than his glucose is up to 185 this morning. His CRP yesterday at admission was normal at 1.23. Cholesterol 174 and LDL 103. He has a normal TSH this morning at 2.42. INR and PTT from yesterday are within normal limits. Serum alcohol level at presentation yesterday was less than 10. Microbiology notable for positive methicillin-resistant Staph on nasal screen. CSF Gram strain as mentioned above reveals no organisms and no neutrophils. CSF culture after day 1 is no growth. Chest x-ray interpreted as unremarkable other than low lung volumes. Transthoracic echocardiogram from early this morning is interpreted as unremarkable. IMPRESSION AND PLAN: Impression is that of new-onset seizures with several seizures in 1 day, accompanied by bradycardia. Alternatively, he could have a primary bradycardia with subsequent convulsive syncope but the deon vu and prolonged amnesia argue for a seizure. His bradycardia never the less, is concerning. He had a normal ECG and TTE and normal MRI. His CSF is notable for a mild elevation in lymphocytes which could be post-ictal or an early viral infection. I have spoken with Dr. Bryant and recommended that he have a repeat spinal tap. I recommend that he be covered with acyclovir as well as broad-spectrum antibiotics for possible bacterial or herpes simplex viral infection. Recommend blood work for vasculitis, Lyme disease, and paraneoplastic antibody profile on blood and spinal fluid. He has currently been started on Depakote and I have put in for a maintenance dose. I will reevaluate after his spinal tap and update my consultation note. [id number]/[facility] #: [id number] [place]
[2019-10-18] MEDS: cefTRIAXone(*) 2 GM in NS 0.9% 100 ML* 100 ML IVPB SCH (16:28)
[2019-10-18] MEDS ORDERED: levETIRAcetam 500 MG IVPREMIX* 500 MG/100 ML BAG IV SCH (16:30)
[2019-10-18 17:05] LABS: Magnesium 2.3 mg/dL (1.9-2.7)
[2019-10-18 17:11] LABS: Phosphorus 4.2 mg/dL (2.5-5.0)
[2019-10-18 17:46] LABS: Creatine Kinase 446 U/L (10-223)
[2019-10-18 17:52] LABS: Troponin I 0.03 ng/mL (<0.03)
[2019-10-18] MEDS ORDERED: Potassium Chlor TAB* 20 MEQ TAB.ER PO ONE (18:00)
[2019-10-18] MEDS: Ampicillin ADVAN(*) 2 GM in NS 0.9% 100 ML* 100 ML IVPB SCH ×2 (18:10→20:38)
--- NOTE | 2019-10-18 18:36 | CONS ---
CC: Dr. Zoran Saxena CARDIOLOGY CONSULTATION: DATE OF CONSULT: 10/18/19 REFERRING PHYSICIAN: Dr. Bryant. REASON FOR CONSULT: Bradycardia with seizures. HISTORY OF PRESENT ILLNESS: I was kindly asked to see this patient by Dr. Bryant and his team for Cardiology consultation regarding bradycardia noted during seizures. The patient does not have a history of known cardiac disease. He is accompanied by his , Ms. Velez today and she is able to relay as the patient is postictal at this time and gets easily drowsy that he apparently has had 5 total seizures since yesterday, 2 prior to being admitted to the hospital, with 1 being in his office followed by 1 at home in his bathroom, which were apparently unwitnessed and then [address] [facility]. He had 1 during his MRI and during one of the seizures he had a 7-second pause. He was also bradycardic during other seizures, which has been captured here with heart rates into the 30s. The patient himself denies cardiac complaints including he denies chest pain and shortness of breath. He has never had fainting prior to yesterday. PAST MEDICAL HISTORY: Significant for childhood asthma and environmental allergies. OUTPATIENT MEDICATIONS: Loratadine/Sudafed 1 tablet p.o. daily p.r.n. ALLERGIES TO MEDICATIONS: None. FAMILY HISTORY: Significant for cancer. There is also cardiac disease in his brother. No family history of stroke. There is family history of intracranial aneurysms. SOCIAL HISTORY: The patient does not smoke cigarettes or abuse alcohol. No use of illicit drugs. 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 He is for 31 years and 364 days and been with his for 40 years who herself is a lecturer at [employer]. The patient walks 20 minutes to work and 20 minutes back from work as well as his work requires climbing 3 flights of stairs. REVIEW OF SYSTEMS: The patient denies personal history of stroke, cancer, vomiting up blood, coughing up blood, bright red blood per rectum, bleeding stomach ulcers, renal calculi, cholelithiasis, asthma currently although he was diagnosed with childhood asthma. He denies emphysema, pneumonia, tuberculosis, sleep apnea, home oxygen use, diabetes, hypertension, prior SC, congestive heart failure, cardiac surgeries, cardiac murmurs, palpitations. He denies psychiatric illnesses, although he does note his work is stressful. He denies lupus, psoriasis, seizures, Parkinson's disease, myasthenia gravis. His notes that the patient's mother has a history of Parkinson's disease. The patient denies thyroid disease, liver disease, kidney disease, claudication symptoms, pulmonary emboli, deep venous thrombosis. The patient denies peripheral edema. He very sporadically has heartburn. All other review of systems are negative x14 except as per this EHR. PHYSICAL EXAM: Height 5 feet 11 inches, weight 209 pounds, temperature 98.1 degrees Fahrenheit, pulse 83, blood pressure 133/82, O2 saturation 98%. On general exam, he is a pleasant appearing gentleman, who is quite soft-spoken at this time which per his is not the patient's usual vocal tenor. He does seem fairly alert. HEENT shows the cranium is normocephalic and atraumatic. He has dry mucosal membranes. Neck veins are not distended. There are no carotid bruits. Visible skin warm and perfused. Affect appropriate, although again he seems drowsy from his postictal state, but he does seem grossly oriented. No significant kyphoscoliosis on back exam; however, there is a well healing bruise noted on his left posterior flank presumably from one of his falls. Lungs are clear to auscultation. No wheezes. No rales. Cardiac Exam: S1, S2. Regular rate. No significant murmurs, rubs, or gallops. PMI is nondisplaced. Abdomen: Soft and nondistended, appears benign. Extremities without significant edema. Pulses appear grossly intact. DIAGNOSTIC STUDIES/LAB DATA: A 12-lead EKG reviewed on 10/18/19 at 3:43 a.m., which demonstrates sinus tachycardia with an atrial premature complex, relatively poor baseline, but no acute disease. Telemetry strips are reviewed during his seizure, which show bradycardia with likely a junctional escape rhythm in the 30s as well as a 4-second pause. There is also up to a 7-second pause noted during a different seizure he has had since being admitted. White blood cell count 14.4, hematocrit 42, platelet count 258. INR 1.02. Sodium 140, potassium 3.7, chloride 105, bicarbonate 19, BUN 16, creatinine 1.08 , mag pending. TSH 2.42. Troponin 0. Serum alcohol less than 10. Transthoracic echocardiogram completed today (please see also that report for further details), which showed normal left ventricular size, normal left ventricular ejection fraction of 60% to 65% with normal cardiac chamber sizes and functionally benign heart valves. IMPRESSION: Mr. Montenegro is a 59-year-old gentleman admitted with new-onset seizures and is found to have concomitant bradyarrhythmia with pause up to 7 seconds. This may be ictal bradycardia, which is less common as the usual heart rate response to seizures is sinus tachycardia but it is possible that his bradycardic episodes are secondary to his seizures. However, this also may be neurocardiogenic syncope/seizures with primary bradyarrhythmic cause for his seizures. We will try to sort that out with Neurology. RECOMMENDATIONS: 1. We will review with Neurology whether they feel this is a primary neurologic event in terms of his seizures or not. I have a call into Dr. Alegre. 2. Recommend ZOLL in the room with patches on and could transcutaneously pace if needed. If needed could trial Dobutamine gtt followed by temporary transvenous pacer (however neither are indicated at this time). If permanent pacemaker needed, could plan for early next week if again it is felt that the primary cause for his seizures is bradydysrhythmia and once Lyme ruled out. 4. Other management as per the critical care medicine service and Neurology. I have discussed the case with Dr. Bryant of Critical Care Medicine. The above was discussed in detail with the patient and his . They seemed to be in agreement with these recommendations. Dear Dr. Bryant, many thanks for this kind cardiac consultation opportunity. Please do not hesitate to contact me if you have any questions or concerns regarding the patient's cardiovascular consultative care. I do have a call pending to the neurologist as well. [id number]/[facility] #: [id number] [place]
--- NOTE | 2019-10-18 20:57 | EEG ---
ELECTROENCEPHALOGRAPHY: DATE OF STUDY: 10/18/19 REFERRING PROVIDER: Dr. Wang. LOCATION: He is in the intensive care unit, bed 6. CLINICAL HISTORY: New-onset seizures the night prior to this recording. MEDICATIONS: Include levetiracetam. REPORT: This 19-channel EEG is remarkable for background rhythms consisting of an alpha rhythm in th e occipital derivations at about 8.5 cycles per second, which is reasonably symmetric. Bifrontal bet a rhythms are noted and are also symmetric. There is an occasional spike component seen in the left a nterior temporal region and rarely an isolated spike is seen in the right frontal region. There are no clinical events. Activation procedures are not attempted. The patient intermittently drowses wit h central slowing and some sleep spindles are seen parasagittally. CLINICAL IMPRESSION: Borderline abnormal EEG due to scattered spikes mainly seen in the left anterio r temporal and right frontal regions. They are not clearly epileptiform in character. There are no clinical events and no well-defined epileptiform discharges. [id number]/[facility] #: [id number]
[2019-10-18] MEDS: Valproic Acid IV(*) 750 MG in NS 0.9% 100 ML* 100 ML IVPB SCH (21:51)
[2019-10-18] MEDS ORDERED: Valproic Acid IV(*) 100 MG/ML 5 ML VIAL (500 MG) IVPB SCH (22:00)
[2019-10-19] MEDS ORDERED: Valproic Acid IV(*) 750 MG in NS 0.9% 100 ML* 100 ML IVPB ONE (00:32)
[2019-10-19] MEDS ORDERED: NS 0.9% IVPB ONE (00:42)
[2019-10-19] MEDS ORDERED: METHYLPREDNISOLONE SOD SUCC IVPB ONE (00:42)
--- NOTE | 2019-10-19 00:51 | PN ---
Hospitalist Progress Note patient is still having multiple episodes of unresponsiveness and bradycardia. He hasnt convulsed the last few times like he did the day before. It's unclear if he is unresponsive from bradycardia primarily or seizures. Around midnight, atropine was given for prolonged bradycardia and unresponsiveness which he actually responded to. Spoke with neurology who recommended loading with depakote 750 and 1G of solumedrol. He recommended to speak with cardiology again as patient may just be unresponsive from primary bradycardia. Cardiology recommending low dose dobutamine. Repeat spot EEG in am
[2019-10-19] MEDS ORDERED: DOPamine 800 MG/250 ML IVPREM* 800 MG/250 ML ML CENTR SCH (01:00)
[2019-10-19] MEDS ORDERED: DOBUTamine 2000 MCG/ML IVPREMX 500 MG/250 ML BAG IV SCH ×2 (01:00→01:30)
[2019-10-19] MEDS ORDERED: methylPREDNISolone SOD SUCC* 1,000 MG in NS 0.9% 100 ML* 100 ML IVPB ONE (01:30)
[2019-10-19] MEDS: Acetaminophen TAB* 325 MG PO PRN (01:47)
[2019-10-19] MEDS: Ampicillin ADVAN(*) 2 GM in NS 0.9% 100 ML* 100 ML IVPB SCH ×4 (01:47→13:27)
[2019-10-19] MEDS: cefTRIAXone(*) 2 GM in NS 0.9% 100 ML* 100 ML IVPB SCH (02:58)
[2019-10-19 05:24] LABS: Hematocrit 40 % (42-52); Hemoglobin 14.1 g/dL (14.0-18.0); Mean Corpuscular HGB Conc 36 g/dL (31-36); Mean Corpuscular Hemoglobin 30 pg (27-31); Mean Corpuscular Volume 85 fL (80-94); Mean Platelet Volume 7.9 fL (7.4-10.4); Platelet Count 228 10^3/uL (150-450); Red Blood Count 4.66 10^6 /uL (4.18-5.48); Red Cell Distribution Width 13 % (10-15); White Blood Count 10.8 10^3/uL (3.5-10.8)
[2019-10-19 06:06] LABS: BUN/Creatinine Ratio 13.6 (8-20); Calcium 8.5 mg/dL (8.6-10.3); EGFR Non-African American 97.5 (>60); Potassium 3.7 mmol/L (3.5-5.0)
[2019-10-19] MEDS: Acyclovir IV(*) 750 MG in NS 0.9% 250 ML* 250 ML IVPB SCH ×2 (07:28→14:45)
[2019-10-19] MEDS: Valproic Acid IV(*) 750 MG in NS 0.9% 100 ML* 100 ML IVPB SCH ×2 (07:32→14:46)
[2019-10-19] MEDS: NS 0.9% 1000 ML** 1,000 ML IV SCH (07:36)
[2019-10-19] MEDS ORDERED: Potassium Chlor TAB* 20 MEQ TAB.ER PO ONE (08:12)
[2019-10-19] MEDS ORDERED: Famotidine IV* 10 MG/ML 2 ML (20 mg) IV SLOW PU SCH (09:00)
[2019-10-19] MEDS: Ketorolac INJ* 15 MG/ML 1 ML VIAL IV PUSH PRN (09:08)
[2019-10-19] MEDS: levETIRAcetam 1000MG IVPREMIX* 1,000 MG/100 ML BAG IVPB SCH (10:11)
--- NOTE | 2019-10-19 12:18 | EEG ---
ELECTROENCEPHALOGRAPHY: DATE OF STUDY: 10/19/19 CARDIOLOGY NURSE: Dr. Bryant. LOCATION: He is in the intensive care unit, bed 6. CLINICAL PROBLEM: Episodes of seizures, unresponsiveness, and bradycardia. MEDICATIONS: Include: 1. Depakote. 2. Keppra. 3. Solu-Medrol. 4. Dobutamine. 5. Atropine. 6. Acyclovir. 7. Ceftriaxone. 8. Ampicillin. REPORT: This 19-channel EEG is remarkable for background rhythms at the onset of the tracing consist ing of mixed theta and beta rhythms. The patient is drowsy and snoring. Posterior sharp transients of sleep are noted. Vertex slowing and sleep spindles are noted as well. Occasional relatively low amplitude phase reversing sharp waves are seen from the left mid temporal region. Occasional spikes are noted from the central and right frontal region without phase reversals. Both are of low amplitu de. The patient sleeps for the majority of the tracing, but wakes at the end of the recording with m ixed theta and beta rhythms seen. There are no clinical events. CLINICAL IMPRESSION: Borderline abnormal EEG due to low amplitude sharp waves in the left mid tempor al region and right frontal and central region suggestive of neuronal excitability at those regions, but there are no clear-cut epileptiform discharges. The patient had a sinus tachycardia with relativ baldo frequent premature ventricular contractions, but no bradycardia during this recording. [id number]/[facility] #: [id number]
[2019-10-19] MEDS ORDERED: methylPREDNISolone 125 MG* 250 MG in NS 0.9% 100 ML* 100 ML IVPB ONE (12:30)
[2019-10-19] MEDS ORDERED: Valproic Acid IV(*) 250 MG in NS 0.9% 100 ML* 100 ML IVPB ONE (12:30)
[2019-10-19 13:09] LABS: Urine Alcohol Negative mg/dL (Cutoff: 10); Urine Barbiturates Negative; Urine Benzodiazepines Negative; Urine Cocaine Negative; Urine Methadone Negative (Negative); Urine Opiates Negative (Negative); Urine Phencyclidine Negative ng/mL (Cutoff: 25); Urine Tetrahydrocannabinol Negative ng/mL (Cutoff: 50)
--- NOTE | 2019-10-19 13:25 | PN ---
Date of Service: 10/19/19 Critical Care Services: The patient had episodes of symptomatic bradycardia; was given 1 gram of solumederol and he was started on a dobutamine gtt. Vital Signs: Temp Pulse Resp BP SpO2 FiO2 98.2 F 75 16 133/76 94 10/19/19 12:23 10/19/19 12:23 10/19/19 12:23 10/19/19 12:23 10/19/19 12:23 Physical Exam: Gen: Awake alert and oriented HEENT: nc/at perrla Lungs: CTA-B and no wheezes and no rhonchi Cardiac: s1s2 rrr and no murmurs and no rubs Abdomen: soft nt/nd bs+ Extremities: no edema. Neuro: AAO x 3 and moving all extremities. Fluid Balance (Past 24 Hours): I= O= Net Intake & Output 10/17/19 10/18/19 10/19/19 10/20/19 06:59 06:59 06:59 06:59 Intake Total 2600 1152 Output Total 300 2380 290 Balance 2300 -1228 -290 Weight 209 lb 7.026 oz 223 lb 1.725 oz Intake: IV Fluids 2600 508 NS (0.9%) 508 IVPB 350 ABX - CEFTRIAXONE 100 ANTIVIRAL - ACYCLOVIR 250 Medicated IV 114 keppra 100 valproic acid 14 Oral 180 Output: [place] 1980 290 Straight Cath 300 Residual 400 Temperature Probe 400 Other: Estimated Void Small Date of Last Bowel 10/17/2019 10/17/2019 Movement # Voids 5 4 Labs: Laboratory Results - last 24 hr 10/17/19 10/18/19 10/18/19 19:15 04:45 11:29 WBC RBC Hgb Hct MCV MCH MCHC RDW Plt Count MPV ESR Sodium Potassium Chloride Carbon Dioxide Anion Gap BUN Creatinine Est GFR ( Amer) Est GFR (Non-Af Amer) BUN/Creatinine Ratio Glucose POC Glucose (mg/dL) 123 H Calcium Phosphorus Magnesium Total Bilirubin AST ALT Alkaline Phosphatase Total Creatine Kinase Troponin I Total Protein Albumin Globulin Albumin/Globulin Ratio TSH Urine Color Urine Appearance Urine pH Ur Specific Warner Urine Protein Urine Ketones Urine Blood Urine Nitrate Urine Bilirubin Urine Urobilinogen Ur Leukocyte Esterase Urine WBC (Auto) Urine RBC (Auto) Urine Bacteria Urine Glucose Fluid Source Fluid Volume Fluid Color Fluid Appearance Fluid WBC Fluid RBC Fluid Tot Cell Count Fluid Neutrophils Fluid Lymphocytes Fluid Cell Count Rvw By Fluid Comment CSF Cell Count Tube # CSF Glucose CSF Total Protein Ur Opiates, Quant Negative U Methadone Metabolites Negative Ur Barbiturates, Quant Negative Valproic Acid Ur Phencyclidine (PCP) Negative Urine Amphetamine Negative Ur Benzodiazepine, Qnt Negative Urine Cocaine Negative Urine Marijuana (THC) Negative Urine Alcohol Negative Lyme Total Antibody 10/18/19 10/18/19 10/18/19 11:48 11:48 13:00 WBC RBC Hgb Hct MCV MCH MCHC RDW Plt Count MPV ESR Sodium 140 Potassium 3.7 Chloride 105 Carbon Dioxide 19 L Anion Gap 16 H BUN 12 Creatinine 1.08 Est GFR ( Amer) 84.7 Est GFR (Non-Af Amer) 70.0 BUN/Creatinine Ratio 11.1 Glucose 128 H POC Glucose (mg/dL) Calcium 9.3 Phosphorus 4.2 Magnesium 2.3 Total Bilirubin 0.70 AST 22 ALT 17 Alkaline Phosphatase 50 Total Creatine Kinase Troponin I Total Protein 6.7 Albumin 4.3 Globulin 2.4 Albumin/Globulin Ratio 1.8 TSH 2.42 Urine Color Yellow Urine Appearance Clear Urine pH 6.0 Ur Specific Warner 1.017 Urine Protein Negative Urine Ketones Negative Urine Blood 2+ A Urine Nitrate Negative Urine Bilirubin Negative Urine Urobilinogen Negative Ur Leukocyte Esterase Negative Urine WBC (Auto) Trace(0-5/hpf) Urine RBC (Auto) 3+(>10/hpf) A Urine Bacteria Absent Urine Glucose Negative Fluid Source Fluid Volume Fluid Color Fluid Appearance Fluid WBC Fluid RBC Fluid Tot Cell Count Fluid Neutrophils Fluid Lymphocytes Fluid Cell Count Rvw By Fluid Comment CSF Cell Count Tube # CSF Glucose CSF Total Protein Ur Opiates, Quant U Methadone Metabolites Ur Barbiturates, Quant Valproic Acid Ur Phencyclidine (PCP) Urine Amphetamine Ur Benzodiazepine, Qnt Urine Cocaine Urine Marijuana (THC) Urine Alcohol Lyme Total Antibody Negative 10/18/19 10/18/19 10/18/19 14:57 14:57 17:20 WBC RBC Hgb Hct MCV MCH MCHC RDW Plt Count MPV ESR Sodium Potassium Chloride Carbon Dioxide Anion Gap BUN Creatinine Est GFR ( Amer) Est GFR (Non-Af Amer) BUN/Creatinine Ratio Glucose POC Glucose (mg/dL) Calcium Phosphorus Magnesium Total Bilirubin AST ALT Alkaline Phosphatase Total Creatine Kinase 446 H Troponin I 0.03 H* Total Protein Albumin Globulin Albumin/Globulin Ratio TSH Urine Color Urine Appearance Urine pH Ur Specific Warner Urine Protein Urine Ketones Urine Blood Urine Nitrate Urine Bilirubin Urine Urobilinogen Ur Leukocyte Esterase Urine WBC (Auto) Urine RBC (Auto) Urine Bacteria Urine Glucose Fluid Source Cerebral spinal Fluid Volume 1.3 Fluid Color Colorless Fluid Appearance Clear Fluid WBC 7 Fluid RBC 7 Fluid Tot Cell Count 69 Fluid Neutrophils Not Reportable Fluid Lymphocytes 100 Fluid Cell Count Rvw By Fluid Comment CSF Cell Count Tube # 4 CSF Glucose 81 H CSF Total Protein 49 H Ur Opiates, Quant U Methadone Metabolites Ur Barbiturates, Quant Valproic Acid Ur Phencyclidine (PCP) Urine Amphetamine Ur Benzodiazepine, Qnt Urine Cocaine Urine Marijuana (THC) Urine Alcohol Lyme Total Antibody 10/18/19 10/18/19 10/19/19 17:20 20:05 05:12 WBC RBC Hgb Hct MCV MCH MCHC RDW Plt Count MPV ESR 9 Sodium 140 Potassium 3.7 Chloride 107 Carbon Dioxide 24 Anion Gap 9 BUN 11 Creatinine 0.81 Est GFR ( Amer) 118.0 Est GFR (Non-Af Amer) 97.5 BUN/Creatinine Ratio 13.6 Glucose 94 POC Glucose (mg/dL) Calcium 8.5 L Phosphorus Magnesium 2.0 Total Bilirubin AST ALT Alkaline Phosphatase Total Creatine Kinase Troponin I 0.02 Total Protein Albumin Globulin Albumin/Globulin Ratio TSH Urine Color Urine Appearance Urine pH Ur Specific Warner Urine Protein Urine Ketones Urine Blood Urine Nitrate Urine Bilirubin Urine Urobilinogen Ur Leukocyte Esterase Urine WBC (Auto) Urine RBC (Auto) Urine Bacteria Urine Glucose Fluid Source Fluid Volume Fluid Color Fluid Appearance Fluid WBC Fluid RBC Fluid Tot Cell Count Fluid Neutrophils Fluid Lymphocytes Fluid Cell Count Rvw By Fluid Comment CSF Cell Count Tube # CSF Glucose CSF Total Protein Ur Opiates, Quant U Methadone Metabolites Ur Barbiturates, Quant Valproic Acid 70.0 Ur Phencyclidine (PCP) Urine Amphetamine Ur Benzodiazepine, Qnt Urine Cocaine Urine Marijuana (THC) Urine Alcohol Lyme Total Antibody 10/19/19 05:12 WBC 10.8 RBC 4.66 Hgb 14.1 Hct 40 L MCV 85 MCH 30 MCHC 36 RDW 13 Plt Count 228 MPV 7.9 ESR Sodium Potassium Chloride Carbon Dioxide Anion Gap BUN Creatinine Est GFR ( Amer) Est GFR (Non-Af Amer) BUN/Creatinine Ratio Glucose POC Glucose (mg/dL) Calcium Phosphorus Magnesium Total Bilirubin AST ALT Alkaline Phosphatase Total Creatine Kinase Troponin I Total Protein Albumin Globulin Albumin/Globulin Ratio TSH Urine Color Urine Appearance Urine pH Ur Specific Warner Urine Protein Urine Ketones Urine Blood Urine Nitrate Urine Bilirubin Urine Urobilinogen Ur Leukocyte Esterase Urine WBC (Auto) Urine RBC (Auto) Urine Bacteria Urine Glucose Fluid Source Fluid Volume Fluid Color Fluid Appearance Fluid WBC Fluid RBC Fluid Tot Cell Count Fluid Neutrophils Fluid Lymphocytes Fluid Cell Count Rvw By Fluid Comment CSF Cell Count Tube # CSF Glucose CSF Total Protein Ur Opiates, Quant U Methadone Metabolites Ur Barbiturates, Quant Valproic Acid Ur Phencyclidine (PCP) Urine Amphetamine Ur Benzodiazepine, Qnt Urine Cocaine Urine Marijuana (THC) Urine Alcohol Lyme Total Antibody Impression: 1. Seizures 2. fall 3. Symptomatic bradycardia unclear if this is related to the seizure 4. SVT 5. Sinus Pauses Plan: -Patient still has episodes on seizure and bradycardia -unclear how related they are; patient will need to be transferred to [place] for Continuous EEG -He is on empiric abx for meningitis and Encephaliits; meningitis is highly unlikely with the high glucose in the CSF 7 WBC is CSF wth lymphocyte predominance -I will touch base with neurolgy; we can probably stopt he abx -He is dobutamine at 3; Had svt at 5 and bradycardia at 2.5. 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 He will need to continue the pulse dose of steroids Critical Care Time: The patient requires intensive medical decision making to prevent adverse outcomes. The ccm time is 32 minutes.
--- NOTE | 2019-10-19 13:40 | PN ---
NEUROLOGY PROGRESS NOTE: DATE OF FOLLOWUP: 10/19/19 LOCATION: He is in the intensive care unit, bed 6. NURSE EMERGENCY ROOM: Dr. Bryant. CHIEF COMPLAINT: Seizures, bradycardia. INTERVAL HISTORY: Since yesterday, Maco had more episodes last night of bradycardia. He required atropine I believe at least once. I recommended a gram of Solu-Medrol, which he received last night. He continues on Keppra and Depakote. With his episode of bradycardia, he had episode of diminished responsiveness which was brief. The last episode he had was somewhere around midnight. Dr. Mulugeta Boston has seen the patient in consultation and started dobutamine. Since that time, he has not had any significant bradycardia. I went over the history with Maco again just to make sure I had the details right. He did spontaneously report an episode of deon vu before he lost consciousness when he was at work and had his first episode of unresponsiveness. He also noted some strange visual phenomenon such as spots of light briefly. Currently, he does not have any nausea or headache. MEDICATIONS: Reviewed and he is currently on: 1. Keppra 1000 mg IV q.12 hours. 2. Valproic acid 750 mg IV q.8 hours. 3. Dobutamine infusion. 4. Ceftriaxone 2 g IV q.12 hours. 5. Ampicillin 2 g IV q.4 hours. 6. Acyclovir 750 mg IV q.8 hours. 7. Lovenox 30 mg subcutaneous q.24 hours. 8. Famotidine 20 mg IV b.i.d. 9. Atropine p.r.n., with none since last night. PHYSICAL EXAMINATION: On limited exam, temperature is 97.9 by [place] probe, in looking through the last 24 hours of data, he has not had a fever and his T-max with the whole hospitalization was 99.1. Blood pressure is currently running about 120 to 130 over 70 to 80. Heart rate is running in the 90s on the monitor. Respiratory rate is 19 and oxygen saturation is 96% on room air. He is alert and appears tired, but is able to carry on a conversation and ask intelligent questions. His language is fluent. I do not see any myoclonus or asterixis. There are no lapses in attention during our visit today. DIAGNOSTIC STUDIES/LAB DATA: Today is notable for a valproic acid level this morning at 5:12 of 70, his spinal fluid results from yesterday now include cell counts which include 7 white blood cells and 7 red blood cells. The white blood cells with now 100% lymphs. Spinal fluid glucose yesterday was within normal limits at 81 and total protein was mildly elevated at 49 compared to 54 the day before when he was first admitted. Chemistries this morning are notable for normal basic metabolic profile. Calcium is borderline low at 8.5. He had an elevated troponin yesterday at 0.03 , which came down slightly to normal at 0.02 last evening. Creatine kinase yesterday was elevated at 446. His CRP on admission was within normal limits and his sedimentation rate from yesterday was normal at 9. Multiple laboratory studies including serum Lyme, spinal fluid PCR studies, paraneoplastic antibodies on serum and spinal fluid are all pending. He had an EEG earlier today, which I reviewed. He slept through most of it. There were no episodes of bradycardia. There was an occasional left mid temporal relatively small amplitude phase reversing sharp wave and also an occasional non- phase reversing small amplitude right frontal spike. There were no clinical events and no clear epileptiform discharges. 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 Anti-glutamic acid decarboxylase syndrome or Anti- N-methyl D-aspartate antibody syndrome would be a consideration. He has no known underlying neoplasia, which may or may not be present in autoimmune encephalitis. In addition he appears to be having ictal bradycardia. I started some Solu-Medrol yesterday presumptively and we will give him another dose today. His Depakote level was a little bit on the low side and I would like to get it in the high side of therapeutic and so we will bolus another 250 mg this morning. I have discussed with Maco and his that I think he should probably be transferred to a center that has continuous EEG monitoring. They prefer to go to [facility] and so I will have put in a call to the Transfer Center and waiting a call back from the epileptologist on duty. If he stays here because of inability to transfer or lack of a bed, I will continue daily steroids probably on a twice or 3 times daily schedule and continue both levetiracetam and valproic acid. At least since last night, he is doing better in regards to no evidence of significant bradycardia or recurrent seizures. I have explained to Maco and his that there may be an additional transfer charge with transfer to [place] because of the additional distance, but they are perfectly willing to accept that. I have spoken with Dr. Bryant and he is on board with the plan and I have also discussed the case with Dr. Boston including the possibility of a pacemaker and my impression that his bradycardia is an ictal manifestation rather than the cause of his unresponsive episodes. [id number]/[facility] #: [id number] [facility]
[2019-10-19 15:39] LABS: HSV 1 PCR, CSF Negative (Negative); HSV 2 PCR, CSF Negative (Negative)
[2019-10-19 15:40] LABS: HSV 1 PCR, CSF Negative (Negative); HSV 2 PCR, CSF Negative (Negative)
[2019-10-19 16:03] VITALS: BP 131/72
--- NOTE | 2019-10-19 19:14 | PN ---
NEUROLOGY FOLLOWUP PROGRESS NOTE: DATE OF FOLLOWUP: 10/19/19 LOCATION: He is in ICU, bed 6. MED ADMIN: Dr. Bryant. CHIEF COMPLAINT: Seizures. INTERVAL HISTORY: Since earlier today, Maco has not had any further episodes of bradycardia or unresponsiveness. I spoke with Dr. Sheila Reyes of the neuro intensive care unit at the [facility], and he accepted Maco in transfer. I spoke with Maco, Dr. Bryant, and his family including his , brother, and daughter regarding the plan. They are in agreement with the plan for transfer. LABORATORY DATA: There are no new laboratory studies to report other than spinal fluid cultures negative after day 2 of growth. Blood cultures are all negative after day 1. Urine culture final has no growth. IMPRESSION AND PLAN: Impression is that of new-onset seizures, possible autoimmune encephalitis, less likely viral or other infectious encephalitis. He will be transferred on his current doses of anticonvulsants. I have asked our staff to contact Radiology to push the images of his MRI scans to [place] for review. I will try to contact [place] next week to get a status report as to how Maco has done. [id number]/[facility] #: [id number] [facility]
[2019-10-21 12:58] LABS: SS-A/Ro Antibody <0.2 U; SS-B/La Antibody <0.2 U
[2019-10-21 19:44] LABS: B garinii/B afzelii PCR Negative (Negative); B mayonii PCR Negative (Negative)
[2019-10-30 09:01] LABS: Anti-Glial/Neuronal Nuc Ab-1 A Negative titer (<1:240); Anti-Neuronal Nuclear Ab Type1 Negative titer (<1:240); Anti-Neuronal Nuclear Ab Type2 Negative titer (<1:240); Anti-Neuronal Nuclear Ab Type3 Negative titer (<1:240); Anti-Striated Muscle Antibody Negative titer (<1:120); CRMP-5 IgG Antibody Negative titer (<1:240); Purkinje Cell Cytoplasm Typ Tr Negative titer (<1:240); Purkinje Cell Cytoplasm Type 1 Negative titer (<1:240); Purkinje Cell Cytoplasm Type 2 Negative titer (<1:240); Voltage-Gated Potassium Chann 0.21 nmol/L (<=0.02)
== END 2019-10-19 16:00 | disposition short-term general hospital (02) | DRG 101 ==
LOC: ED 17:07 → MED 21:59 → ICU 10-18 04:53
PROVIDERS: ADMIT Student in an Organized Health Care Education/Training Program; ATTEND Internal Medicine
PROC: 009U3ZX Drainage of Spinal Canal, Percutaneous Approach, Diagnostic (ICD-10-PCS; principal; 2019-10-17)
PROC: 4A00X4Z Measurement of Central Nervous Electrical Activity, External Approach (ICD-10-PCS; 2019-10-19)
DX: R56.9 Unspecified convulsions (principal); I47.1 Supraventricular tachycardia; J45.909 Unspecified asthma, uncomplicated; I49.5 Sick sinus syndrome
CPT/HCPCS: 36415; 70450; 70496; 70498; 70553; 71045; 72125; 80048; 80053; 80061; 80164; 80177; 80307; 80320; 81003; 81015; 82550; 82945; 83516; 83519; 83520; 83605; 83735; 84100; 84157; 84443; 84484; 85025; 85027; 85610; 85652; 85730; 86038; 86140; 86235; 86255; 86256; 86341; 86618; 87040; 87070; 87086; 87205; 87476; 87529; 87641; 87798; 89051; 93005; 93306; 95819; 99285; A9270-GY; A9579; G0480; J0133; J0461; J0696; J1250; J1265; J1650; J1885; J1953; J2060; J2405; J2930; J3370; J3480; Q9967

== ENCOUNTER 2019-10-31 19:40 | Inpatient (IN) | payer OTHER ==
--- OUTSIDE RECORDS SUMMARY | 2019-10-31 19:54 | XMS REPORT | Continuity of Care Document ---
:1960 External Reference #:[id number] Author Name Zoran Saxena MD Address [address] [place] [id number] Problems Active Problems Provider Date Adult health examination Onset: 01/21/2019 Seizure Zoran Saxena MD Onset: 10/20/2019 Note: Seizures Sep 2019, autoimmune? - neg ID, heme onc workup Social History Type Date Description Comments Sex Unknown Allergies, Adverse Reactions, Alerts Description No Information Available Medications Active Medications SIG Qnty Indications Ordering Date Provider Doxycycline Hyclate 1 tab by mouth 14tabs DOROTHY Bland 06/28/2019 twice a day 100mg Tablets Mupirocin 1 milliliters apply 22gm DOROTHY Bland 06/28/2019 2% Ointment to affected area twice a day Cetirizine HCL 1 at bedtime Oral 30tabs Unknown 08/10/2017 10mg Tablets History Medications Gentamicin Sulfate 1 drops left eye 5ml Zoran Saxena MD 05/07/2019 - 0.3% four times a day 05/28/2019 Solution Immunizations CPT Code Status Date Vaccine Lot # [id number] Given 06/28/2019 Flu < 65 years [id number] 08744 Given 02/18/2019 Hepatitis B >=20 yrs, Energix or Recombivax 54897 Given 01/21/2019 Tdap - Boostrix/Adacel 83358 Given 01/21/2019 Td >=7yrs Tenivac/Grifols Td 52015 Given 11/16/2018 Hep B 11-15yr, Recombivax 1.0ml dose only 62603 Given 06/21/2018 Influenza Virus Vaccine, Split, Preserv Free, Intradermal Use 60007 Given 06/21/2018 Flu High Dose 99405 Given 06/21/2018 Flumist 29339 Given 06/21/2018 Influenza Virus Vaccine, Quadrivalent, Split, Preservative Free 02565 Given 06/21/2018 Flu < 65 years 74018 Given 06/21/2018 Influenza Virus Vaccine, Quadrivalent, Split, Im Use 0.25ML 07948 Given 06/21/2018 Influenza Virus Vaccine, Quadrivalent, Split, Im Use 0.25ML 27993 Given 06/21/2018 Influenza Virus Vaccine, Quadrivalent, Split, Im Use 0.25ML 03813 Given 05/18/2018 Hepatitis B >=20 yrs, Energix or Recombivax 82122 Given 04/27/2018 Shingrix - Shingles vaccine, Herpes Zoster 93866 Given 02/09/2018 Shingrix - Shingles vaccine, Herpes Zoster 67332 Given 12/26/2017 Hepatitis B >=20 yrs, Energix or Recombivax 75562 Given 11/21/2017 Hepatitis B >=20 yrs, Energix or Recombivax 94501 Given 08/10/2017 Influenza Virus Vaccine, Split, Preserv Free, Intradermal Use 36909 Given 08/10/2017 Flu High Dose 75299 Given 08/10/2017 Flumist 39021 Given 08/10/2017 Influenza Virus Vaccine, Quadrivalent, Split, Preservative Free 55321 Given 08/10/2017 Flu < 65 years 48749 Given 08/10/2017 Influenza Virus Vaccine, Quadrivalent, Split, Im Use 0.25ML 99499 Given 08/10/2017 Influenza Virus Vaccine, Quadrivalent, Split, Im Use 0.25ML 95884 Given 08/10/2017 Influenza Virus Vaccine, Quadrivalent, Split, Im Use 0.25ML 23584 Given 04/19/2016 Flu High Dose 51604 Given 04/19/2016 Flumist 38587 Given 04/19/2016 Influenza Virus Vaccine, Quadrivalent, Split, Preservative Free 52864 Given 04/19/2016 Flu < 65 years 34780 Given 04/19/2016 Influenza Virus Vaccine, Quadrivalent, Split, Im Use 0.25ML 72586 Given 04/19/2016 Influenza Virus Vaccine, Quadrivalent, Split, Im Use 0.25ML 23632 Given 04/19/2016 Influenza Virus Vaccine, Quadrivalent, Split, Im Use 0.25ML 81381 Given 08/26/2010 Influenza Virus Vaccine, Quadrivalent, Split, Im Use 0.25ML 48898 Given 08/26/2010 Influenza Virus Vaccine, Split Virus, Preservative Free Im 0.5ML 84668 Given 08/24/2009 Tdap - Boostrix/Adacel 82476 Given 08/10/2009 Influenza Virus Vaccine, Quadrivalent, Split, Im Use 0.25ML 02847 Given 08/10/2009 H1N1 Immunization Admin (Intramuscular,Intranasal) Inc Counseling 43548 Given 06/26/2009 Influenza Virus Vaccine, Quadrivalent, Split, Im Use 0.25ML 19666 Given 06/26/2009 Influenza Virus Vaccine Split Virus Intramuscular Use 0.5ML 90966 Refused 10/24/2013 Influenza Virus Vaccine, Quadrivalent, Split, Im Use 0.25ML Vital Signs Date Vital Result Comment 06/28/2019 8:48am BP Systolic 130 mmHg BP Diastolic 92 mmHg Weight 212.00 lb Heart Rate 93 /min Body Temperature 97.8 F O2 % BldC Oximetry 98 % 05/07/2019 11:04am Heart Rate 68 /min Body Temperature 98.1 F O2 % BldC Oximetry 97 % Results Test Acquired Date Facility Test Result H/L Range Note Laboratory test 10/17/[address] [facility] Lactic Acid 1.8 mmol/L Normal 0.5-2.0 [address] [place], [place] [id number] [phone] Laboratory test 10/17/[address] [facility] CSF Total 54 mg/dL High 15-45 2, [address] Protein [place], [place] [address] [phone] CSF Glucose 75 mg/dL High 40-70 4 CSF Culture & 10/17/[address] [facility] CSF Culture SEE RESULT [address] Gram Stain BELOW [place], [place] [id number] [phone] CSF Cell Count 10/17/[address] [facility] Body Fluid Cerebral Spinal [address] Source [place], [place] [address] [phone] Body Fluid Appearance Clear Body Fluid Color Colorless CSF Tube # 4 Body Fluid Volume 2.0 mL Body Fluid Comment (SEE NOTE) 6 Body Fluid WBC 16 /mcL Body Fluid RBC 16 /mcL Body Fluid Lymph 86 % Body Fluid [place] 14 % Body Fluid Other Cells 8 Body Fluid Total Cells Counted 73 Fluid Reviewed By MD (SEE NOTE) 7 INR/Protime 10/17/[address] [facility] INR 1.02 Normal 0.82-1.[address] [place] [address] [phone] Laboratory test 10/17/[address] [facility] Partial 27.6 Normal 26.0 -38.[address] [place] [address] Time PTT [phone] CBC Auto Diff 10/17/[address] [facility] White Blood 9.6 10^3/uL Normal 3.5-10.[address] [place] [address] [phone] Red Blood Count 5.08 10^6/uL Normal 4.18-5.48 Hemoglobin 15.3 g/dL Normal 14.0-18.0 Hematocrit 43 % Normal 42-52 Mean Corpuscular Volume 85 fL Normal 80-94 Mean Corpuscular Hemoglobin 30 pg Normal 27-31 Mean Corpuscular HGB Conc 36 g/dL Normal 31-36 Red Cell Distribution Width 13 % Normal 10-15 Platelet Count 280 10^3/uL Normal 150-450 Mean Platelet Volume 7.8 fL Normal 7.4-10.4 Abs Neutrophils 5.9 10^3/uL Normal 1.5-7.7 Abs Lymphocytes 2.5 10^3/uL Normal 1.0-4.8 Abs Monocytes 0.9 10^3/uL High 0-0.8 Abs Eosinophils 0.3 10^3/uL Normal 0-0.6 Abs Basophils 0.1 10^3/uL Normal 0-0.2 Abs Nucleated RBC 0.0 10^3/uL Granulocyte % 61.3 % Lymphocyte % 25.5 % Monocyte % 9.3 % Eosinophil % 3.0 % Basophil % 0.9 % Nucleated Red Blood Cells % 0.0 Laboratory 10/17/[address] [facility] Lactic 3.3 mmol/L Critical 0.5-2.0 [address] [place] [address] [phone] Troponin-I (TnI) 0.00 ng/mL <0.03 10 Comp Metabolic 10/17/[address] [facility] Sodium 139 mmol/L Normal 135-[address] [place] [address] [phone] Potassium 3.5 mmol/L Normal 3.5-5.0 Chloride 106 mmol/L Normal 101-111 Co2 Carbon Dioxide 25 mmol/L Normal 22-32 Anion Gap 8 mmol/L Normal 2-11 Glucose 135 mg/dL High 70-100 Blood Urea Nitrogen 15 mg/dL Normal 6-24 Creatinine 0.99 mg/dL Normal 0.67-1.17 BUN/Creatinine Ratio 15.2 Normal 8-20 Calcium 8.9 mg/dL Normal 8.6-10.3 Total Protein 6.5 g/dL Normal 6.4-8.9 Albumin 4.2 g/dL Normal 3.2-5.2 Globulin 2.3 g/dL Normal 2-4 Albumin/Globulin Ratio 1.8 Normal 1-3 Total Bilirubin 0.40 mg/dL Normal 0.2-1.0 Alkaline Phosphatase 42 U/L Normal 34-104 Alt 14 U/L Normal 7-52 Ast 18 U/L Normal 13-39 Egfr Non- 77.4 >60 Egfr 93.6 >60 11 Lipid Profile 10/17/[address] [facility] Triglycerides 147 mg/dL 12 (Trig/Chol/HDL) [address] [place], [place] [id number] [phone] Cholesterol 174 mg/dL 13 HDL Cholesterol 41.2 mg/dL 14 LDL Cholesterol 103 mg/dL 15 Laboratory test 10/17/[address] [facility] C Reactive 1.23 mg/L Normal <8.01 finding [address] [facility] Protein [place], [place] [address] [phone] Alcohol < 10 mg/dL Normal <10 Urinalysis Profile 10/17/[address] [facility] Urine Color Straw [address] [place], [place] [address] [phone] Urine Appearance Clear Urine Specific [place] 1.038 High 1.010-1.030 Urine pH 7.0 Normal 5-9 Urine Urobilinogen Negative Negative Urine Ketones Negative Negative Urine Protein Negative Negative Urine Leukocytes Negative Negative Urine Blood Negative Negative Urine Nitrite Negative Negative Urine Bilirubin Negative Negative Urine Glucose Negative Negative Laboratory test 10/17/[address] [facility] Point of Care 131 mg/dL High 70-100 16 finding [address] [facility] [place] [address] [phone] [facility] Severe Sepsis and Septic Shock Management Bundle Measure requires all lactic acids initially measuring >2.0 mmol/L be repeated. 2 Comment: Tube 4 3 Comment: Tube 2 4 Comment: Tube 2 5 SEE RESULT BELOW Name: ALONSO CHRISTIE : [address]: Roberto Bryant MD Acct: [id number] Unit: [id number] AGE: 59 Location: ICU [id number] Re10/17/19 Dis: 10/19/19 SEX: M Status: DIS IN SPEC: [id number] VINCENZO: 10/17/[address]: Ok Bishop MD REQ: [id number] RECD: 10/17/19 STATUS: RES OTHR DR: Zoran Saxena MD _ SOURCE: CSF SPDESC: ORDERED: CSF Cult/GS COMMENTS: Comment: Tube 3 Verbal to [id number] by [id number] at 0745 on 10/18/19. Results read back accurately. Procedure Result Reported Site CSF Gram Stain Final 10/18/19- 0748 ML No Neutrophils Observed 1+ Nucleated Cells No Organisms Seen Preparation By Cytospin Smear CSF Culture Preliminary 10/20/19- 1029 ML No Growth Day 3 * ML - Main Lab . END OF REPORT DEPARTMENT OF PATHOLOGY, [address] [place] [address] Crispin Li M.D. Director [facility] # [id number] 6 Differential performed on concentrated smear. 7 Mixed lymphocytes and monocytes. No evidence of an acute inflammatory response. No evidence of malignancy. Reviewed by Zuleima Beatty MD 8 Standard intensity warfarin therapeutic range: 2.0-3.0 High intensity warfarin therapeutic range: 2.5-3.5 9 Critical Result LACT:3.3 Called to [id number] at: 18:20:35 by:[id number] Read back by:[id number] [facility] Severe Sepsis and Septic Shock Management Bundle Measure requires all lactic acids initially measuring >2.0 mmol/L be repeated. 10 Troponin-I testing on Plasma Separator Tubes (PST) has a known false positive rate of 0.20-0.40%. All positive troponins reflex immediately to secondary confirmatory testing. Using the [employer] DxI 800 Access Immunoassay systems, the 99th percentile upper reference limit was demonstrated to be < 0.03 ng/mL. 11 Because ethnic data is not always readily available, this report includes an eGFR for both -Americans and non- Americans. The National Kidney Disease Education Program (NKDEP) does not endorse the use of the MDRD equation for patients that are not between the ages of 18 and 70, are , have extremes of body size, muscle mass, or nutritional status, or are non- or non-. According to the National Kidney Foundation, irrespective of diagnosis, the stage of the disease is based on the level of kidney function: Stage Description GFR(mL/min/1.73 m(2)) 1 Kidney damage with normal or decreased GFR 90 2 Kidney damage with mild decrease in GFR 60-89 3 Moderate decrease in GFR 30-59 4 Severe decrease in GFR 15-29 5 Kidney failure <15 (or dialysis) 12 Desirable: <150 Borderline High: 150-199 High: 200-499 Very High: >500 13 Desirable: <200 Borderline High: 200-239 High: >239 14 Low: <40 Desirable: 40-60 High: >60 15 Desirable: <100 Near Optimal: 100-129 Borderline High: 130-159 High: 160-189 Very High: >189 16 Drug Safety Assistant: [id number] Procedures Description No Information Available Medical Devices Description No Information Available Encounters Type Date Location Provider Dx Diagnosis Office Visit 06/28/2019 8:45a [facility] DOROTHY Khan L73.9 Follicular disorder, unspecified Z23 Encounter for immunization Office Visit 05/07/2019 11:00a [facility] Maverick Saxena MD H10.32 Unspecified acute conjunctivitis, left eye Assessments Date Code Description Provider 06/28/2019 L73.9 Follicular disorder, unspecified DOROTHY Bland 06/28/2019 Z23 Encounter for immunization DOROTHY Bland 05/07/2019 H10.32 Unspecified acute conjunctivitis, left eye Zoran Saxena MD Plan of Treatment 06/28/2019 - DAISY BlandPL73.9 Follicular disorder, unspecifiedComments: discussed folliculitis infection start using bactroban on pustules for 3-5 days if no improvement start antibioitc as directed continue using entle sop on skinreturn if no [id number] Encounter for immunizationAllNew Medication: Doxycycline Hyclate 100 mg - 1 tab by mouth twice a dayMupirocin 2 % - 1 milliliters apply to affected area twice a day Functional Status Description No Information Available Mental Status Description No Information Available Referrals Description No Information Available
--- OUTSIDE RECORDS SUMMARY | 2019-10-31 19:54 | XMS REPORT | Continuity of Care Document ---
:1960 External Reference #:[id number] Author Name Zoran Saxena MD Address [address] [place] [id number] Problems Description No Information Available Social History Type Date Description Comments Sex [...] CPT Code Status Date Vaccine Lot # [id number] Given 06/28/2019 Flu < 65 years [id number] 32542 Given 02/18/2019 Hepatitis B >=20 yrs, Energix or Recombivax 03131 Given 01/21/2019 Tdap - Boostrix/Adacel 25414 Given 01/21/2019 Td >=7yrs Tenivac/Grifols Td 32404 Given 11/16/2018 Hep B 11-15yr, Recombivax 1.0ml dose only 21708 Given 06/21/2018 Influenza Virus Vaccine, Split, Preserv Free, Intradermal Use 67795 Given 06/21/2018 Flu High Dose 82890 Given 06/21/2018 Flumist 02045 Given 06/21/2018 Influenza Virus Vaccine, Quadrivalent, Split, Preservative Free 93953 Given 06/21/2018 Flu < 65 years 46384 Given 06/21/2018 Influenza Virus Vaccine, Quadrivalent, Split, Im Use 0.25ML 08693 Given 06/21/2018 Influenza Virus Vaccine, Quadrivalent, Split, Im Use 0.25ML 12661 Given 06/21/2018 Influenza Virus Vaccine, Quadrivalent, Split, Im Use 0.25ML 78032 Given 05/18/2018 Hepatitis B >=20 yrs, Energix or Recombivax 20419 Given 04/27/2018 Shingrix - Shingles vaccine, Herpes Zoster 59872 Given 02/09/2018 Shingrix - Shingles vaccine, Herpes Zoster 12264 Given 12/26/2017 Hepatitis B >=20 yrs, Energix or Recombivax 00728 Given 11/21/2017 Hepatitis B >=20 yrs, Energix or Recombivax 54442 Given 08/10/2017 Influenza Virus Vaccine, Split, Preserv Free, Intradermal Use 80223 Given 08/10/2017 Flu High Dose 01578 Given 08/10/2017 Flumist 36518 Given 08/10/2017 Influenza Virus Vaccine, Quadrivalent, Split, Preservative Free 06524 Given 08/10/2017 Flu < 65 years 35642 Given 08/10/2017 Influenza Virus Vaccine, Quadrivalent, Split, Im Use 0.25ML 83627 Given 08/10/2017 Influenza Virus Vaccine, Quadrivalent, Split, Im Use 0.25ML 32677 Given 08/10/2017 Influenza Virus Vaccine, Quadrivalent, Split, Im Use 0.25ML 81229 Given 04/19/2016 Flu High Dose 76213 Given 04/19/2016 Flumist 13583 Given 04/19/2016 Influenza Virus Vaccine, Quadrivalent, Split, Preservative Free 89800 Given 04/19/2016 Flu < 65 years 12066 Given 04/19/2016 Influenza Virus Vaccine, Quadrivalent, Split, Im Use 0.25ML 26310 Given 04/19/2016 Influenza Virus Vaccine, Quadrivalent, Split, Im Use 0.25ML 16632 Given 04/19/2016 Influenza Virus Vaccine, Quadrivalent, Split, Im Use 0.25ML 30747 Given 08/26/2010 Influenza Virus Vaccine, Quadrivalent, Split, Im Use 0.25ML 50594 Given 08/26/2010 Influenza Virus Vaccine, Split Virus, Preservative Free Im 0.5ML 21990 Given 08/24/2009 Tdap - Boostrix/Adacel 35558 Given 08/10/2009 Influenza Virus Vaccine, Quadrivalent, Split, Im Use 0.25ML 97011 Given 08/10/2009 H1N1 Immunization Admin (Intramuscular,Intranasal) Inc Counseling 80392 Given 06/26/2009 Influenza Virus Vaccine, Quadrivalent, Split, Im Use 0.25ML 50552 Given 06/26/2009 Influenza Virus Vaccine Split Virus Intramuscular Use 0.5ML 30151 Refused 10/24/2013 Influenza Virus Vaccine, Quadrivalent, Split, [...] Result H/L Range Note Laboratory test 10/17/2019 [facility] Lactic Acid 1.8 mmol/L Normal 0.5-2.0 [address] [place] [address] [phone] Laboratory test 10/17/2019 [facility] CSF Total 54 mg/dL High 15-45 2, [address] [place] [address] [phone] CSF Glucose 75 mg/dL High 40-70 4 CSF Culture & 10/17/2019 [facility] CSF Culture SEE RESULT [address] Gram Stain BELOW [place], [place] [address] [phone] INR/Protime 10/17/2019 [facility] INR 1.02 Normal 0.82- [address] [place] [address] [phone] Laboratory test 10/17/2019 [facility] Partial 27.6 seconds Normal 26.0- finding [address] Thrombo Time 38.0 [place] [address] PTT [phone] CBC Auto Diff 10/17/2019 [facility] White Blood 9.6 10^3/uL Normal 3.5-[address] Count 0.8 [place] [address] [phone] Red Blood Count 5.08 10^6/uL Normal 4.18-5.48 [...] Red Blood Cells % 0.0 Laboratory 10/17/2019 [facility] Lactic 3.3 mmol/L Critical 0.5-2.0 7 test finding [address] [place] [address] [phone] Troponin-I (TnI) 0.00 ng/mL <0.03 8 Comp Metabolic 10/17/2019 [facility] Sodium 139 mmol/L Normal 135-[address] [place] [address] [phone] Potassium 3.5 mmol/L Normal 3.5-5.0 Chloride 106 [...] Egfr Non- 77.4 >60 Egfr 93.6 >60 9 Lipid Profile 10/17/2019 [facility] Triglycerides 147 mg/dL 10 (Trig/Chol/HDL) [address] [place] [address] [phone] Cholesterol 174 mg/dL 11 HDL Cholesterol 41.2 mg/dL 12 LDL Cholesterol 103 mg/dL 13 Laboratory test 10/17/2019 [facility] C Reactive 1.23 mg/L Normal <8.[address] Protein [place], [place] [address] [phone] Alcohol < 10 mg/dL Normal <10 Urinalysis Profile 10/17/2019 [facility] Urine Color Straw [address] [place], [place] [address] [phone] Urine Appearance Clear Urine Specific [place] 1.038 High 1.010-1.030 Urine pH 7.0 Normal 5-9 Urine Urobilinogen Negative Negative Urine Ketones Negative Negative Urine Protein Negative Negative Urine Leukocytes Negative Negative Urine Blood Negative Negative Urine Nitrite Negative Negative Urine Bilirubin Negative Negative Urine Glucose Negative Negative Laboratory test 10/17/2019 [facility] Point of Care 131 mg/dL High 70-100 14 finding [address] [employer] Glucose [place], [place] [address] [phone] 1 [place] Severe Sepsis and Septic Shock Management Bundle Measure requires all lactic acids initially measuring >2.0 mmol/L be repeated. 2 Comment: Tube 4 3 Comment: Tube 2 4 Comment: Tube 2 5 SEE RESULT BELOW Name: ALONSO CHRISTIE : [address]: Roberto Bryant MD Acct: [id number] Unit: [id number] AGE: 59 Location: ICU [id number] Re10/17/19 SEX: M Status: ADM IN SPEC: [id number] VINCENZO: 10/17/[address]: Ok Bishop MD REQ: [id number] RECD: 10/17/19 STATUS: RES OTHR DR: Zoran Saxena MD _ SOURCE: CSF SPDESC: ORDERED: CSF Cult/GS COMMENTS: Comment: Tube 3 Verbal to [id number] by [id number] at 0745 on 10/18/19. Results read back accurately. Procedure Result Reported Site CSF Gram Stain Final 10/18/19- 0748 ML No Neutrophils Observed 1+ Nucleated Cells No Organisms Seen Preparation By Cytospin Smear CSF Culture Preliminary 10/18/19- 1118 ML No Growth Day 1 * ML - Main Lab . END OF REPORT DEPARTMENT OF PATHOLOGY, [address] [place] [address] Crispin Li M.D. Director [facility] # [id number] 6 Standard intensity warfarin therapeutic range: 2.0-3.0 High intensity warfarin therapeutic range: 2.5-3.5 7 Critical Result LACT:3.3 Called to [id number] at: 18:20:35 by:[id number] Read back by:[id number] [facility] Severe Sepsis and Septic Shock Management Bundle Measure requires all lactic acids initially measuring >2.0 mmol/L be repeated. 8 Troponin-I testing on Plasma Separator Tubes (PST) has a known false positive rate of 0.20-0.40%. All positive troponins reflex immediately to secondary confirmatory testing. Using the [employer] Access Immunoassay systems, the 99th percentile upper reference limit was demonstrated to be < 0.03 ng/mL. 9 Because ethnic data is not always readily [...] 15-29 5 Kidney failure <15 (or dialysis) 10 Desirable: <150 Borderline High: 150-199 High: 200-499 Very High: >500 11 Desirable: <200 Borderline High: 200-239 High: >239 12 Low: <40 Desirable: 40-60 High: >60 13 Desirable: <100 Near Optimal: 100-129 Borderline High: 130-159 High: 160-189 Very High: >189 14 Reaming Machine Tender: [id number] Procedures Description No Information Available Medical Devices Description No Information Available Encounters Type Date Location Provider Dx Diagnosis Office Visit 06/28/2019 8:45a [facility] DOROTHY Khan L73.9 Follicular disorder, unspecified Z23 Encounter for immunization Office Visit 05/07/2019 11:00a [facility] Zoran Saxena MD H10.32 Unspecified acute conjunctivitis, left eye Assessments Date Code Description Provider 06/28/2019 L73.9 Follicular disorder, unspecified Josselin MerchantDAISYP 06/28/2019 Z23 Encounter for immunization Josselin MerchantDOROTHY 05/07/2019 H10.32 Unspecified acute conjunctivitis, left eye Zoran Saxena MD Plan of Treatment 06/28/2019 - Josselin Merchant PL73.9 Follicular disorder, unspecifiedComments: discussed folliculitis infection start using bactroban on pustules for 3-5 days if no improvement start antibioitc as directed continue using entle sop on skinreturn if no [id number] Encounter for immunizationAllNew Medication: Doxycycline Hyclate 100 mg - 1 tab by mouth twice a dayMupirocin 2 % - 1 milliliters apply to affected area twice a day Functional Status Description No Information Available Mental Status Description No Information Available Referrals Description No Information Available
--- OUTSIDE RECORDS SUMMARY | 2019-10-31 19:54 | XMS REPORT | Continuity of Care Document ---
:1960 External Reference #:[id number] Author Name Zoran Saxena MD Address [address] [place] [id number] Problems Description No Information Available Social History [...] CPT Code Status Date Vaccine Lot # [id number] Given 06/28/2019 Flu < 65 years [id number] 90968 Given 02/18/2019 Hepatitis B >=20 yrs, Energix or Recombivax 84496 Given 01/21/2019 Tdap - Boostrix/Adacel 63545 Given 01/21/2019 Td >=7yrs [place]ivac/[place] [address]7963 Given 11/16/2018 Hep B 11-15yr, Recombivax 1.0ml dose only 32023 Given 06/21/2018 Influenza Virus Vaccine, Split, Preserv Free, Intradermal Use 56946 Given 06/21/2018 Flu High Dose 91234 Given 06/21/2018 Flumist 06090 Given 06/21/2018 Influenza Virus Vaccine, Quadrivalent, Split, Preservative Free 86995 Given 06/21/2018 Flu < 65 years 15719 Given 06/21/2018 Influenza Virus Vaccine, Quadrivalent, Split, Im Use 0.25ML 44216 Given 06/21/2018 Influenza Virus Vaccine, Quadrivalent, Split, Im Use 0.25ML 30491 Given 06/21/2018 Influenza Virus Vaccine, Quadrivalent, Split, Im Use 0.25ML 74628 Given 05/18/2018 Hepatitis B >=20 yrs, Energix or Recombivax 50644 Given 04/27/2018 Shingrix - Shingles vaccine, Herpes Zoster 21364 Given 02/09/2018 Shingrix - Shingles vaccine, Herpes Zoster 01238 Given 12/26/2017 Hepatitis B >=20 yrs, Energix or Recombivax 21181 Given 11/21/2017 Hepatitis B >=20 yrs, Energix or Recombivax 96992 Given 08/10/2017 Influenza Virus Vaccine, Split, Preserv Free, Intradermal Use 43920 Given 08/10/2017 Flu High Dose 13610 Given 08/10/2017 Flumist 10166 Given 08/10/2017 Influenza Virus Vaccine, Quadrivalent, Split, Preservative Free 04374 Given 08/10/2017 Flu < 65 years 34654 Given 08/10/2017 Influenza Virus Vaccine, Quadrivalent, Split, Im Use 0.25ML 14733 Given 08/10/2017 Influenza Virus Vaccine, Quadrivalent, Split, Im Use 0.25ML 27547 Given 08/10/2017 Influenza Virus Vaccine, Quadrivalent, Split, Im Use 0.25ML 27126 Given 04/19/2016 Flu High Dose 56665 Given 04/19/2016 Flumist 96342 Given 04/19/2016 Influenza Virus Vaccine, Quadrivalent, Split, Preservative Free 33601 Given 04/19/2016 Flu < 65 years 92861 Given 04/19/2016 Influenza Virus Vaccine, Quadrivalent, Split, Im Use 0.25ML 49807 Given 04/19/2016 Influenza Virus Vaccine, Quadrivalent, Split, Im Use 0.25ML 22775 Given 04/19/2016 Influenza Virus Vaccine, Quadrivalent, Split, Im Use 0.25ML 29895 Given 08/26/2010 Influenza Virus Vaccine, Quadrivalent, Split, Im Use 0.25ML 76006 Given 08/26/2010 Influenza Virus Vaccine, Split Virus, Preservative Free Im 0.5ML 94993 Given 08/24/2009 Tdap - Boostrix/Adacel 49535 Given 08/10/2009 Influenza Virus Vaccine, Quadrivalent, Split, Im Use 0.25ML 62774 Given 08/10/2009 H1N1 Immunization Admin (Intramuscular,Intranasal) Inc Counseling 06086 Given 06/26/2009 Influenza Virus Vaccine, Quadrivalent, Split, Im Use 0.25ML 77955 Given 06/26/2009 Influenza Virus Vaccine Split Virus Intramuscular Use 0.5ML 98025 Refused 10/24/2013 Influenza Virus Vaccine, Quadrivalent, Split, [...] Date Facility Test Result H/L Range Note INR/Protime 10/17/2019 [facility] INR 1.02 Normal 0.82-1.[address] [place], [place] [id number] [phone] Laboratory test 10/17/2019 [facility] Partial 27.6 Normal 26.0 -38.[address] [place] [address] PTT [phone] CBC Auto Diff 10/17/2019 [facility] White Blood 9.6 10^3/uL Normal 3.5-10.[address] Count [place], [place] [address] [phone] Red Blood Count 5.08 10^6/uL Normal 4.18-5.48 [...] Red Blood Cells % 0.0 Laboratory 10/17/2019 [facility] Lactic 3.3 mmol/L Critical 0.5-2.0 2 test finding [address] [place] [address] [phone] Troponin-I (TnI) 0.00 ng/mL <0.03 3 Comp Metabolic 10/17/2019 [facility] Sodium 139 mmol/L Normal 135-[address] [place] [address] [phone] Potassium 3.5 mmol/L Normal 3.5-5.0 Chloride 106 [...] Egfr Non- 77.4 >60 Egfr 93.6 >60 4 Lipid Profile 10/17/2019 [facility] Triglycerides 147 mg/dL 5 (Trig/Chol/HDL) [address] [place] [address] [phone] Cholesterol 174 mg/dL 6 HDL Cholesterol 41.2 mg/dL 7 LDL Cholesterol 103 mg/dL 8 Laboratory test 10/17/2019 [facility] C Reactive 1.23 mg/L Normal <8.[address] [place] [address] [phone] Alcohol < 10 mg/dL Normal <10 Urinalysis Profile 10/17/2019 [facility] Urine Color Straw [address] [place] [address] [phone] Urine Appearance Clear Urine Specific [place] 1.038 High 1.010-1.030 Urine pH 7.0 Normal 5-9 Urine Urobilinogen Negative Negative Urine Ketones Negative Negative Urine Protein Negative Negative Urine Leukocytes Negative Negative Urine Blood Negative Negative Urine Nitrite Negative Negative Urine Bilirubin Negative Negative Urine Glucose Negative Negative Laboratory test 10/17/2019 [facility] Point of Care 131 mg/dL High 70-[address] [place] [address] [phone] Standard intensity warfarin therapeutic range: 2.0-3.0 High intensity warfarin therapeutic range: 2.5-3.5 2 Critical Result LACT:3.3 Called to [id number] at: 18:20:35 by:[id number] Read back by:[id number] [facility] Severe Sepsis and Septic Shock Management Bundle Measure requires all lactic acids initially measuring >2.0 mmol/L be repeated. 3 Troponin-I testing on Plasma Separator Tubes (PST) has a known false positive rate of 0.20-0.40%. All positive troponins reflex immediately to secondary confirmatory testing. Using the [employer] DxI 800 Access Immunoassay systems, the 99th percentile upper reference limit was demonstrated to be < 0.03 ng/mL. 4 Because ethnic data is not always readily [...] 15-29 5 Kidney failure <15 (or dialysis) 5 Desirable: <150 Borderline High: 150-199 High: 200-499 Very High: >500 6 Desirable: <200 Borderline High: 200-239 High: >239 7 Low: <40 Desirable: 40-60 High: >60 8 Desirable: <100 Near Optimal: 100-129 Borderline High: 130-159 High: 160-189 Very High: >189 9 [place] Bucker: [id number] Procedures Description No Information Available Medical Devices Description No Information Available Encounters Type Date Location Provider Dx Diagnosis Office Visit 06/28/2019 8:45a [facility] DOROTHY Khan L73.9 Follicular disorder, unspecified Z23 Encounter for immunization Office Visit 05/07/2019 11:00a [facility] Maverick Saxena MD H10.32 Unspecified acute conjunctivitis, [...] using entle sop on skinreturn if no [id number] Encounter for immunizationAllNew Medication: Doxycycline Hyclate 100 mg - 1 tab by mouth twice a dayMupirocin 2 % - 1 milliliters apply to affected area twice a day Functional Status Description No Information Available Mental Status Description No Information Available Referrals Description No Information Available
--- OUTSIDE RECORDS SUMMARY | 2019-10-31 19:54 | XMS REPORT | Continuity of Care Document ---
:1960 External Reference #:[id number] Author Name Zoran Saxena MD Address [address] [place] [id number] Problems Description No Information Available Social History [...] CPT Code Status Date Vaccine Lot # [id number] Given 06/28/2019 Flu < 65 years [id number] 43207 Given 02/18/2019 Hepatitis B >=20 yrs, Energix or Recombivax 15349 Given 01/21/2019 Tdap - Boostrix/Adacel 88170 Given 01/21/2019 Td >=7yrs [place]iv[place]d [address] Given 11/16/2018 Hep B 11-15yr, Recombivax 1.0ml dose only 25791 Given 06/21/2018 Influenza Virus Vaccine, Split, Preserv Free, Intradermal Use 84256 Given 06/21/2018 Flu High Dose 03671 Given 06/21/2018 Flumist 64077 Given 06/21/2018 Influenza Virus Vaccine, Quadrivalent, Split, Preservative Free 58767 Given 06/21/2018 Flu < 65 years 40246 Given 06/21/2018 Influenza Virus Vaccine, Quadrivalent, Split, Im Use 0.25ML 72794 Given 06/21/2018 Influenza Virus Vaccine, Quadrivalent, Split, Im Use 0.25ML 60626 Given 06/21/2018 Influenza Virus Vaccine, Quadrivalent, Split, Im Use 0.25ML 11213 Given 05/18/2018 Hepatitis B >=20 yrs, Energix or Recombivax 54679 Given 04/27/2018 Shingrix - Shingles vaccine, Herpes Zoster 01847 Given 02/09/2018 Shingrix - Shingles vaccine, Herpes Zoster 96456 Given 12/26/2017 Hepatitis B >=20 yrs, Energix or Recombivax 05512 Given 11/21/2017 Hepatitis B >=20 yrs, Energix or Recombivax 16426 Given 08/10/2017 Influenza Virus Vaccine, Split, Preserv Free, Intradermal Use 10464 Given 08/10/2017 Flu High Dose 39564 Given 08/10/2017 Flumist 54406 Given 08/10/2017 Influenza Virus Vaccine, Quadrivalent, Split, Preservative Free 23433 Given 08/10/2017 Flu < 65 years 47629 Given 08/10/2017 Influenza Virus Vaccine, Quadrivalent, Split, Im Use 0.25ML 18082 Given 08/10/2017 Influenza Virus Vaccine, Quadrivalent, Split, Im Use 0.25ML 50478 Given 08/10/2017 Influenza Virus Vaccine, Quadrivalent, Split, Im Use 0.25ML 21278 Given 04/19/2016 Flu High Dose 67901 Given 04/19/2016 Flumist 02912 Given 04/19/2016 Influenza Virus Vaccine, Quadrivalent, Split, Preservative Free 41778 Given 04/19/2016 Flu < 65 years 20057 Given 04/19/2016 Influenza Virus Vaccine, Quadrivalent, Split, Im Use 0.25ML 74006 Given 04/19/2016 Influenza Virus Vaccine, Quadrivalent, Split, Im Use 0.25ML 67286 Given 04/19/2016 Influenza Virus Vaccine, Quadrivalent, Split, Im Use 0.25ML 57955 Given 08/26/2010 Influenza Virus Vaccine, Quadrivalent, Split, Im Use 0.25ML 31106 Given 08/26/2010 Influenza Virus Vaccine, Split Virus, Preservative Free Im 0.5ML 82628 Given 08/24/2009 Tdap - Boostrix/Adacel 10811 Given 08/10/2009 Influenza Virus Vaccine, Quadrivalent, Split, Im Use 0.25ML 05940 Given 08/10/2009 H1N1 Immunization Admin (Intramuscular,Intranasal) Inc Counseling 95310 Given 06/26/2009 Influenza Virus Vaccine, Quadrivalent, Split, Im Use 0.25ML 89469 Given 06/26/2009 Influenza Virus Vaccine Split Virus Intramuscular Use 0.5ML 81474 Refused 10/24/2013 Influenza Virus Vaccine, Quadrivalent, Split, [...] Result H/L Range Note Laboratory test 10/17/2019 [facility] Lactic Acid 1.8 mmol/L Normal 0.5-2.0 [address] [place], [place] [address] [phone] Laboratory test 10/17/2019 [facility] CSF Total 54 mg/dL High 15-45 2, [address] [place] [address] [phone] CSF Glucose 75 mg/dL High 40-70 4 CSF Culture & 10/17/2019 [facility] CSF Culture SEE RESULT [address] Gram Stain BELOW [place], [place] [id number] [phone] CSF Cell Count 10/17/2019 [facility] Body Fluid Cerebral Spinal [address] Source [place], [place] [address] [phone] Body Fluid Appearance Clear Body Fluid Color Colorless CSF Tube # 4 Body Fluid Volume 2.0 mL Body Fluid Comment (SEE NOTE) 6 Body Fluid WBC 16 /mcL Body Fluid RBC 16 /mcL Body Fluid Lymph 86 % Body Fluid [place] 14 % Body Fluid Other Cells 8 Body Fluid Total Cells Counted 73 Fluid Reviewed By MD (SEE NOTE) 7 INR/Protime 10/17/2019 [facility] INR 1.02 Normal 0.82-1.[address] [place], [place] [address] [phone] Laboratory test 10/17/2019 [facility] Partial 27.6 Normal 26.0 -38.[address] [place] [address] Time PTT [phone] CBC Auto Diff 10/17/2019 [facility] White Blood 9.6 10^3/uL Normal 3.5-10.[address] [place] [address] [phone] Red Blood Count 5.08 10^6/uL Normal 4.18-5.48 [...] Red Blood Cells % 0.0 Laboratory 10/17/2019 [facility] Lactic 3.3 mmol/L Critical 0.5-2.0 [address] [place] [address] [phone] Troponin-I (TnI) 0.00 ng/mL <0.03 10 Comp Metabolic 10/17/2019 [facility] Sodium 139 mmol/L Normal 135-[address] [place] [address] [phone] Potassium 3.5 mmol/L Normal 3.5-5.0 Chloride 106 [...] Egfr 93.6 >60 11 Lipid Profile 10/17/2019 [facility] Triglycerides 147 mg/dL 12 (Trig/Chol/HDL) [address] [place], [place] [address] [phone] Cholesterol 174 mg/dL 13 HDL Cholesterol 41.2 mg/dL 14 LDL Cholesterol 103 mg/dL 15 Laboratory test 10/17/2019 [facility] C Reactive 1.23 mg/L Normal <8.01 finding [address] [facility] Protein [place], [place] [address] [phone] Alcohol < 10 mg/dL Normal <10 Urinalysis Profile 10/17/2019 [facility] Urine Color Straw [address] [place], [place] [address] [phone] Urine Appearance Clear Urine Specific [place] 1.038 High 1.010-1.030 Urine pH 7.0 Normal 5-9 Urine Urobilinogen Negative Negative Urine Ketones Negative Negative Urine Protein Negative Negative Urine Leukocytes Negative Negative Urine Blood Negative Negative Urine Nitrite Negative Negative Urine Bilirubin Negative Negative Urine Glucose Negative Negative Laboratory test 10/17/2019 [facility] Point of Care 131 mg/dL High 70-100 16 finding [address] [facility] Glucose [place], [place] [address] [phone] 1 [facility] Severe Sepsis and Septic Shock Management Bundle Measure requires all lactic acids initially measuring >2.0 mmol/L be repeated. 2 Comment: Tube 4 3 Comment: Tube 2 4 Comment: Tube 2 5 SEE RESULT BELOW Name: ALONSO CHRISTIE : [address]: Roberto Bryant MD Acct: [id number] Unit: [id number] AGE: 59 Location: ICU [id number] Re10/17/19 SEX: M Status: ADM IN SPEC: [id number] VINCENZO: 10/17/[address]: Ok Bishop MD REQ: [id number] RECD: 10/17/19 STATUS: RES OTHR DR: Zoran Saxena MD _ SOURCE: CSF SPDESC: ORDERED: CSF Cult/GS COMMENTS: Comment: Tube 3 Verbal to [id number] by [id number] at 0745 on 10/18/19. Results read back accurately. Procedure Result Reported Site CSF Gram Stain Final 10/18/19- 0748 ML No Neutrophils Observed 1+ Nucleated Cells No Organisms Seen Preparation By Cytospin Smear CSF Culture Preliminary 10/19/19- 1056 ML No Growth Day 2 * ML - Main Lab . END OF REPORT DEPARTMENT OF PATHOLOGY, [address] [place] [address] Crispin Li M.D. Director [facility] # [id number] 6 Differential performed on concentrated smear. 7 Mixed lymphocytes and monocytes. No evidence of an acute inflammatory response. No evidence of malignancy. Reviewed by Zuleima Beatty MD 8 Standard intensity warfarin therapeutic range: 2.0-3.0 High intensity warfarin therapeutic range: 2.5-3.5 9 Critical Result LACT:3.3 Called to [id number] at: 18:20:35 by:[id number] Read back by:[id number] [facility] Severe Sepsis and Septic Shock Management Bundle Measure requires all lactic acids initially measuring >2.0 mmol/L be repeated. 10 Troponin-I testing on Plasma Separator Tubes (PST) has a known false positive rate of 0.20-0.40%. All positive troponins reflex immediately to secondary confirmatory testing. Using the [employer] DxI 800 Access Immunoassay systems, the 99th [...] 130-159 High: 160-189 Very High: >189 16 Vessel Slag Worker: [id number] Procedures Description No Information Available Medical Devices Description No Information Available Encounters Type Date Location Provider Dx Diagnosis Office Visit 06/28/2019 8:45a [facility] Maverick Merchant [facility] L73.9 Follicular disorder, unspecified Z23 Encounter for immunization Office Visit 05/07/2019 11:00a [facility] Main Zoran Saxena MD H10.32 Unspecified acute conjunctivitis, left eye Assessments Date Code Description Provider 06/28/2019 L73.9 Follicular disorder, unspecified DAISY BlandP 06/28/2019 Z23 Encounter for immunization DAISY BlandP 05/07/2019 H10.32 Unspecified acute conjunctivitis, left eye Zoran Saxena MD Plan of Treatment 06/28/2019 - Josselin Merchant PL73.9 Follicular disorder, unspecifiedComments: discussed folliculitis infection start using bactroban on pustules for 3-5 days if no improvement start antibioitc as directed continue using entle sop on skinreturn if no [id number] Encounter for immunizationAllNew Medication: Doxycycline Hyclate 100 mg - 1 tab by mouth twice a dayMupirocin 2 % - 1 milliliters apply to affected area twice a day Functional Status Description No Information Available Mental Status Description No Information Available Referrals Description No Information Available
--- OUTSIDE RECORDS SUMMARY | 2019-10-31 19:54 | XMS REPORT | Continuity of Care Document ---
:1960 External Reference #:[id number] Author Name Zoran Saxena MD Address [address] [place] [id number] Problems Description No Information Available Social History [...] CPT Code Status Date Vaccine Lot # [id number] Given 06/28/2019 Flu < 65 years [id number] 49196 Given 02/18/2019 Hepatitis B >=20 yrs, Energix or Recombivax 87202 Given 01/21/2019 Tdap - Boostrix/Adacel 10265 Given 01/21/2019 Td >=7yrs [place] [address] Given 11/16/2018 Hep B 11-15yr, Recombivax 1.0ml dose only 51840 Given 06/21/2018 Influenza Virus Vaccine, Split, Preserv Free, Intradermal Use 90766 Given 06/21/2018 Flu High Dose 82221 Given 06/21/2018 Flumist 02287 Given 06/21/2018 Influenza Virus Vaccine, Quadrivalent, Split, Preservative Free 18546 Given 06/21/2018 Flu < 65 years 02134 Given 06/21/2018 Influenza Virus Vaccine, Quadrivalent, Split, Im Use 0.25ML 66659 Given 06/21/2018 Influenza Virus Vaccine, Quadrivalent, Split, Im Use 0.25ML 75141 Given 06/21/2018 Influenza Virus Vaccine, Quadrivalent, Split, Im Use 0.25ML 21531 Given 05/18/2018 Hepatitis B >=20 yrs, Energix or Recombivax 15132 Given 04/27/2018 Shingrix - Shingles vaccine, Herpes Zoster 23058 Given 02/09/2018 Shingrix - Shingles vaccine, Herpes Zoster 08818 Given 12/26/2017 Hepatitis B >=20 yrs, Energix or Recombivax 48089 Given 11/21/2017 Hepatitis B >=20 yrs, Energix or Recombivax 90232 Given 08/10/2017 Influenza Virus Vaccine, Split, Preserv Free, Intradermal Use 72362 Given 08/10/2017 Flu High Dose 24160 Given 08/10/2017 Flumist 42120 Given 08/10/2017 Influenza Virus Vaccine, Quadrivalent, Split, Preservative Free 07461 Given 08/10/2017 Flu < 65 years 46142 Given 08/10/2017 Influenza Virus Vaccine, Quadrivalent, Split, Im Use 0.25ML 52708 Given 08/10/2017 Influenza Virus Vaccine, Quadrivalent, Split, Im Use 0.25ML 07790 Given 08/10/2017 Influenza Virus Vaccine, Quadrivalent, Split, Im Use 0.25ML 29541 Given 04/19/2016 Flu High Dose 26525 Given 04/19/2016 Flumist 02480 Given 04/19/2016 Influenza Virus Vaccine, Quadrivalent, Split, Preservative Free 63060 Given 04/19/2016 Flu < 65 years 96541 Given 04/19/2016 Influenza Virus Vaccine, Quadrivalent, Split, Im Use 0.25ML 66353 Given 04/19/2016 Influenza Virus Vaccine, Quadrivalent, Split, Im Use 0.25ML 16573 Given 04/19/2016 Influenza Virus Vaccine, Quadrivalent, Split, Im Use 0.25ML 30330 Given 08/26/2010 Influenza Virus Vaccine, Quadrivalent, Split, Im Use 0.25ML 24818 Given 08/26/2010 Influenza Virus Vaccine, Split Virus, Preservative Free Im 0.5ML 92003 Given 08/24/2009 Tdap - Boostrix/Adacel 60490 Given 08/10/2009 Influenza Virus Vaccine, Quadrivalent, Split, Im Use 0.25ML 01881 Given 08/10/2009 H1N1 Immunization Admin (Intramuscular,Intranasal) Inc Counseling 12378 Given 06/26/2009 Influenza Virus Vaccine, Quadrivalent, Split, Im Use 0.25ML 35406 Given 06/26/2009 Influenza Virus Vaccine Split Virus Intramuscular Use 0.5ML 24244 Refused 10/24/2013 Influenza Virus Vaccine, Quadrivalent, Split, [...] Result H/L Range Note Laboratory test 10/17/2019 [facility] Lactic Acid 1.8 mmol/L Normal 0.5-2.0 [address] [place] [address] [phone] Laboratory test 10/17/2019 [facility] CSF Total 54 mg/dL High 15-45 2, [address] [place] [address] [phone] CSF Glucose 75 mg/dL High 40-70 4 CSF Culture & 10/17/2019 [facility] CSF Culture SEE RESULT [address] Gram Stain BELOW [place], [place] [address] [phone] INR/Protime 10/17/2019 [facility] INR 1.02 Normal 0.82- [address] 1[address]09 [place] [address] [phone] Laboratory test 10/17/2019 [facility] Partial 27.6 seconds Normal 26.0- finding [address] Thrombo Time 38.0 [place] [address] PTT [phone] CBC Auto Diff 10/17/2019 [facility] White Blood 9.6 10^3/uL Normal 3.5-[address] Count 0.8 [place] [address] [phone] Red Blood Count 5.08 10^6/uL Normal 4.18-5.48 [...] Red Blood Cells % 0.0 Laboratory 10/17/2019 [facility] Lactic 3.3 mmol/L Critical 0.5-2.0 7 test finding [address] [address] [phone] Troponin-I (TnI) 0.00 ng/mL <0.03 8 Comp Metabolic 10/17/2019 [facility] Sodium 139 mmol/L Normal 135-[address] [place] [address] [phone] Potassium 3.5 mmol/L Normal 3.5-5.0 Chloride 106 [...] Egfr 93.6 >60 9 Lipid Profile 10/17/2019 [facility] Triglycerides 147 mg/dL 10 (Trig/Chol/HDL) [address] [place] [address] [phone] Cholesterol 174 mg/dL 11 HDL Cholesterol 41.2 mg/dL 12 LDL Cholesterol 103 mg/dL 13 Laboratory test 10/17/2019 [facility] C Reactive 1.23 mg/L Normal <8.[address] Protein [place], [place] [address] [phone] Alcohol < 10 mg/dL Normal <10 Urinalysis Profile 10/17/2019 [facility] Urine Color Straw [address] [place], [place] [address] [phone] Urine Appearance Clear Urine Specific [place] 1.038 High 1.010-1.030 Urine pH 7.0 Normal 5-9 Urine Urobilinogen Negative Negative Urine Ketones Negative Negative Urine Protein Negative Negative Urine Leukocytes Negative Negative Urine Blood Negative Negative Urine Nitrite Negative Negative Urine Bilirubin Negative Negative Urine Glucose Negative Negative Laboratory test 10/17/2019 [facility] Point of Care 131 mg/dL High 70-100 14 finding [address] Glucose [place], [place] [address] [phone] 1 [place] Severe Sepsis and Septic Shock Management Bundle Measure requires all lactic acids initially measuring >2.0 mmol/L be repeated. 2 Comment: Tube 4 3 Comment: Tube 2 4 Comment: Tube 2 5 SEE RESULT BELOW Name: ALONSO CHRISTIE : [address]: Ok Bishop MD Acct: [id number] Unit: [id number] AGE: 59 Location: ED Re10/17/19 SEX: M Status: REG ER SPEC: [id number] VINCENZO: 10/17/[address]: Ok Bishop MD REQ: [id number] RECD: 10/17/19 STATUS: RES OTHR DR: Zoran Saxena MD _ SOURCE: CSF SPDESC: ORDERED: CSF Cult/GS COMMENTS: Comment: Tube 3 Procedure Result Reported Site CSF Gram Stain Preliminary 10/17/19- 2049 ML No Neutrophils Observed No Organisms Seen Preparation By Cytospin Smear CSF Culture PENDING * ML - Main Lab . END OF REPORT DEPARTMENT OF PATHOLOGY, [address] [place] [address] Crispin Li M.D. Director [facility] # [id number] 6 Standard intensity warfarin therapeutic range: 2.0-3.0 High intensity warfarin therapeutic range: 2.5-3.5 7 Critical Result LACT:3.3 Called to [id number] at: 18:20:35 by:[id number] Read back by:[id number] [facility] Severe Sepsis and Septic Shock Management Bundle Measure requires all lactic acids initially measuring >2.0 mmol/L be repeated. 8 Troponin-I testing on Plasma Separator Tubes (PST) has a known false positive rate of 0.20-0.40%. All positive troponins reflex immediately to secondary confirmatory testing. Using the [employer] Access Immunoassay systems, the 99th percentile upper [...] 130-159 High: 160-189 Very High: >189 14 Implementation Analyst: [id number] Procedures Description No Information Available Medical Devices Description No Information Available Encounters Type Date Location Provider Dx Diagnosis Office Visit 06/28/2019 8:45a [facility] DOROTHY Khan L73.9 Follicular disorder, unspecified Z23 Encounter for immunization Office Visit 05/07/2019 11:00a Juanpablo Saxena MD H10.32 Unspecified acute conjunctivitis, left eye Assessments Date Code Description Provider 06/28/2019 L73.9 Follicular disorder, unspecified Josselin MerchantDOROTHY 06/28/2019 Z23 Encounter for immunization Josselin DOROTHY Merchant 05/07/2019 H10.32 Unspecified acute conjunctivitis, left eye Zoran Saxena MD Plan of Treatment 06/28/2019 - Josselin Merchant, DAISYPL73.9 Follicular disorder, unspecifiedComments: discussed folliculitis infection start using bactroban on pustules for 3-5 days if no improvement start antibioitc as directed continue using entle sop on skinreturn if no [id number] Encounter for immunizationAllNew Medication: Doxycycline Hyclate 100 mg - 1 tab by mouth twice a dayMupirocin 2 % - 1 milliliters apply to affected area twice a day Functional Status Description No Information Available Mental Status Description No Information Available Referrals Description No Information Available
--- OUTSIDE RECORDS SUMMARY | 2019-10-31 19:54 | XMS REPORT | Continuity of Care Document ---
:1960 External Reference #:[id number] Author Name Zoran Saxena MD Address [address] [place] [phone] Problems Description No Information Available Social History [...] CPT Code Status Date Vaccine Lot # [id number] Given 06/28/2019 Flu < 65 years [id number] 95627 Given 02/18/2019 Hepatitis B >=20 yrs, Energix or Recombivax 53264 Given 01/21/2019 Tdap - Boostrix/Adacel 50204 Given 01/21/2019 Td >=7yrs Tenivac/Grifols Td 56472 Given 11/16/2018 Hep B 11-15yr, Recombivax 1.0ml dose only 27678 Given 06/21/2018 Influenza Virus Vaccine, Split, Preserv Free, Intradermal Use 73588 Given 06/21/2018 Flu High Dose 07189 Given 06/21/2018 Flumist 47565 Given 06/21/2018 Influenza Virus Vaccine, Quadrivalent, Split, Preservative Free 61201 Given 06/21/2018 Flu < 65 years 24987 Given 06/21/2018 Influenza Virus Vaccine, Quadrivalent, Split, Im Use 0.25ML 85809 Given 06/21/2018 Influenza Virus Vaccine, Quadrivalent, Split, Im Use 0.25ML 75734 Given 06/21/2018 Influenza Virus Vaccine, Quadrivalent, Split, Im Use 0.25ML 14528 Given 05/18/2018 Hepatitis B >=20 yrs, Energix or Recombivax 19710 Given 04/27/2018 Shingrix - Shingles vaccine, Herpes Zoster 97396 Given 02/09/2018 Shingrix - Shingles vaccine, Herpes Zoster 07066 Given 12/26/2017 Hepatitis B >=20 yrs, Energix or Recombivax 22157 Given 11/21/2017 Hepatitis B >=20 yrs, Energix or Recombivax 49381 Given 08/10/2017 Influenza Virus Vaccine, Split, Preserv Free, Intradermal Use 77311 Given 08/10/2017 Flu High Dose 74530 Given 08/10/2017 Flumist 56471 Given 08/10/2017 Influenza Virus Vaccine, Quadrivalent, Split, Preservative Free 95762 Given 08/10/2017 Flu < 65 years 17318 Given 08/10/2017 Influenza Virus Vaccine, Quadrivalent, Split, Im Use 0.25ML 24102 Given 08/10/2017 Influenza Virus Vaccine, Quadrivalent, Split, Im Use 0.25ML 72106 Given 08/10/2017 Influenza Virus Vaccine, Quadrivalent, Split, Im Use 0.25ML 26301 Given 04/19/2016 Flu High Dose 13829 Given 04/19/2016 Flumist 21188 Given 04/19/2016 Influenza Virus Vaccine, Quadrivalent, Split, Preservative Free 46075 Given 04/19/2016 Flu < 65 years 43622 Given 04/19/2016 Influenza Virus Vaccine, Quadrivalent, Split, Im Use 0.25ML 31406 Given 04/19/2016 Influenza Virus Vaccine, Quadrivalent, Split, Im Use 0.25ML 99931 Given 04/19/2016 Influenza Virus Vaccine, Quadrivalent, Split, Im Use 0.25ML 04548 Given 08/26/2010 Influenza Virus Vaccine, Quadrivalent, Split, Im Use 0.25ML 21529 Given 08/26/2010 Influenza Virus Vaccine, Split Virus, Preservative Free Im 0.5ML 80068 Given 08/24/2009 Tdap - Boostrix/Adacel 24744 Given 08/10/2009 Influenza Virus Vaccine, Quadrivalent, Split, Im Use 0.25ML 92867 Given 08/10/2009 H1N1 Immunization Admin (Intramuscular,Intranasal) Inc Counseling 27031 Given 06/26/2009 Influenza Virus Vaccine, Quadrivalent, Split, Im Use 0.25ML 54353 Given 06/26/2009 Influenza Virus Vaccine Split Virus Intramuscular Use 0.5ML 14442 Refused 10/24/2013 Influenza Virus Vaccine, Quadrivalent, Split, [...] Result H/L Range Note Laboratory test 10/17/2019 [facility] Lactic Acid 1.8 mmol/L Normal 0.5-2.0 [address] [place], [place] [address] [phone] Laboratory test 10/17/2019 [facility] CSF Total 54 mg/dL High 15-45 2, [address] [place] [address] [phone] CSF Glucose 75 mg/dL High 40-70 4 CSF Culture & 10/17/2019 [facility] CSF Culture SEE RESULT [address] Gram Stain BELOW [place], [place] [address] [phone] CSF Cell Count 10/17/2019 [facility] Body Fluid Cerebral Spinal [address] Source [place], [place] [address] [phone] Body Fluid Appearance Clear Body Fluid Color Colorless CSF Tube # 4 Body Fluid Volume 2.0 mL Body Fluid Comment (SEE NOTE) 6 Body Fluid WBC 16 /mcL Body Fluid RBC 16 /mcL Body Fluid Lymph 86 % Body Fluid Prentiss 14 % Body Fluid Other Cells 8 Body Fluid Total Cells Counted 73 Fluid Reviewed By MD (SEE NOTE) 7 INR/Protime 10/17/2019 [facility] INR 1.02 Normal 0.82-1.[address] [place], [place] [address] [phone] Laboratory test 10/17/2019 [facility] Partial 27.6 Normal 26.0 -38.[address] [place] [address] Time PTT [phone] CBC Auto Diff 10/17/2019 [facility] White Blood 9.6 10^3/uL Normal 3.5-10.[address] [place] [address] [phone] Red Blood Count 5.08 10^6/uL Normal 4.18-5.48 [...] Red Blood Cells % 0.0 Laboratory 10/17/2019 [facility] Lactic 3.3 mmol/L Critical 0.5-2.0 [address] [place] [address] [phone] Troponin-I (TnI) 0.00 ng/mL <0.03 10 Comp Metabolic 10/17/2019 [facility] Sodium 139 mmol/L Normal 135-[address] [place] [address] [phone] Potassium 3.5 mmol/L Normal 3.5-5.0 Chloride 106 [...] Egfr 93.6 >60 11 Lipid Profile 10/17/2019 [facility] Triglycerides 147 mg/dL 12 (Trig/Chol/HDL) [address] [place], [place] [address] [phone] Cholesterol 174 mg/dL 13 HDL Cholesterol 41.2 mg/dL 14 LDL Cholesterol 103 mg/dL 15 Laboratory test 10/17/2019 [facility] C Reactive 1.23 mg/L Normal <8.01 finding [address] [facility] Protein [place], [place] [address] [phone] Alcohol < 10 mg/dL Normal <10 Urinalysis Profile 10/17/2019 [facility] Urine Color Straw [address] [place], [place] [address] [phone] Urine Appearance Clear Urine Specific [place] 1.038 High 1.010-1.030 Urine pH 7.0 Normal 5-9 Urine Urobilinogen Negative Negative Urine Ketones Negative Negative Urine Protein Negative Negative Urine Leukocytes Negative Negative Urine Blood Negative Negative Urine Nitrite Negative Negative Urine Bilirubin Negative Negative Urine Glucose Negative Negative Laboratory test 10/17/2019 [facility] Point of Care 131 mg/dL High 70-100 16 finding [address] [facility] Glucose [place], [place] [address] [phone] 1 [facility] Severe Sepsis and Septic Shock Management Bundle Measure requires all lactic acids initially measuring >2.0 mmol/L be repeated. 2 Comment: Tube 4 3 Comment: Tube 2 4 Comment: Tube 2 5 SEE RESULT BELOW Name: ALONSO CHRISTIE : [address]: Roberto Bryant MD Acct: [id number] Unit: [id number] AGE: 59 Location: ICU [id number] Re10/17/19 SEX: M Status: ADM IN SPEC: [id number] VINCENZO: 10/17/[address]: Ok Bishop MD REQ: [id number] RECD: 10/17/19 STATUS: RES OTHR DR: Zoran Saxena MD _ SOURCE: CSF SPDESC: ORDERED: CSF Cult/GS COMMENTS: Comment: Tube 3 Verbal to [id number] by [id number] at 0745 on 10/18/19. Results read back accurately. Procedure Result Reported Site CSF Gram Stain Final 10/18/19- 0748 ML No Neutrophils Observed 1+ Nucleated Cells No Organisms Seen Preparation By Cytospin Smear CSF Culture Preliminary 10/18/19- 1118 ML No Growth Day 1 * ML - Main Lab . END OF REPORT DEPARTMENT OF PATHOLOGY, [address] [place] [address] Crispin Li M.D. Director [facility] # [id number] 6 Differential performed on concentrated smear. 7 Mixed lymphocytes and monocytes. No evidence of an acute inflammatory response. No evidence of malignancy. Reviewed by Zuleima Beatty MD 8 Standard intensity warfarin therapeutic range: 2.0-3.0 High intensity warfarin therapeutic range: 2.5-3.5 9 Critical Result LACT:3.3 Called to [id number] at: 18:20:35 by:[id number] Read back by:[id number] [facility] Severe Sepsis and Septic Shock Management Bundle Measure requires all lactic acids initially measuring >2.0 mmol/L be repeated. 10 Troponin-I testing on Plasma Separator Tubes (PST) has a known false positive rate of 0.20-0.40%. All positive troponins reflex immediately to secondary confirmatory testing. Using the [employer] DxI 800 Access Immunoassay systems, the 99th [...] 130-159 High: 160-189 Very High: >189 16 Fountain Manager: [id number] Procedures Description No Information Available Medical Devices Description No Information Available Encounters Type Date Location Provider Dx Diagnosis Office Visit 06/28/2019 8:45a [facility] Maverick Merchant [facility] L73.9 Follicular disorder, unspecified Z23 Encounter for immunization Office Visit 05/07/2019 11:00a [facility] Main Zoran Saxena MD H10.32 Unspecified acute conjunctivitis, left eye Assessments Date Code Description Provider 06/28/2019 L73.9 Follicular disorder, unspecified DAISY BlandP 06/28/2019 Z23 Encounter for immunization DAISY BlandP 05/07/2019 H10.32 Unspecified acute conjunctivitis, left eye Zoran Saxena MD Plan of Treatment 06/28/2019 - Josselin Merchatn PL73.9 Follicular disorder, unspecifiedComments: discussed folliculitis infection start using bactroban on pustules for 3-5 days if no improvement start antibioitc as directed continue using entle sop on skinreturn if no [id number] Encounter for immunizationAllNew Medication: Doxycycline Hyclate 100 mg - 1 tab by mouth twice a dayMupirocin 2 % - 1 milliliters apply to affected area twice a day Functional Status Description No Information Available Mental Status Description No Information Available Referrals Description No Information Available
--- OUTSIDE RECORDS SUMMARY | 2019-10-31 19:54 | XMS REPORT | Continuity of Care Document ---
:1960 External Reference #:[id number] Author Name Zoran Saxena MD Address [address] [place] [phone] Problems Description No Information Available Social History [...] CPT Code Status Date Vaccine Lot # [id number] Given 06/28/2019 Flu < 65 years [id number] 23142 Given 02/18/2019 Hepatitis B >=20 yrs, Energix or Recombivax 88244 Given 01/21/2019 Tdap - Boostrix/Adacel 18984 Given 01/21/2019 Td >=7yrs [place] [address]341 Given 11/16/2018 Hep B 11-15yr, Recombivax 1.0ml dose only 26840 Given 06/21/2018 Influenza Virus Vaccine, Split, Preserv Free, Intradermal Use 25992 Given 06/21/2018 Flu High Dose 87454 Given 06/21/2018 Flumist 07520 Given 06/21/2018 Influenza Virus Vaccine, Quadrivalent, Split, Preservative Free 77081 Given 06/21/2018 Flu < 65 years 49163 Given 06/21/2018 Influenza Virus Vaccine, Quadrivalent, Split, Im Use 0.25ML 49361 Given 06/21/2018 Influenza Virus Vaccine, Quadrivalent, Split, Im Use 0.25ML 63594 Given 06/21/2018 Influenza Virus Vaccine, Quadrivalent, Split, Im Use 0.25ML 66101 Given 05/18/2018 Hepatitis B >=20 yrs, Energix or Recombivax 84128 Given 04/27/2018 Shingrix - Shingles vaccine, Herpes Zoster 05398 Given 02/09/2018 Shingrix - Shingles vaccine, Herpes Zoster 35861 Given 12/26/2017 Hepatitis B >=20 yrs, Energix or Recombivax 60444 Given 11/21/2017 Hepatitis B >=20 yrs, Energix or Recombivax 03721 Given 08/10/2017 Influenza Virus Vaccine, Split, Preserv Free, Intradermal Use 86498 Given 08/10/2017 Flu High Dose 83879 Given 08/10/2017 Flumist 66022 Given 08/10/2017 Influenza Virus Vaccine, Quadrivalent, Split, Preservative Free 03429 Given 08/10/2017 Flu < 65 years 26675 Given 08/10/2017 Influenza Virus Vaccine, Quadrivalent, Split, Im Use 0.25ML 12815 Given 08/10/2017 Influenza Virus Vaccine, Quadrivalent, Split, Im Use 0.25ML 32094 Given 08/10/2017 Influenza Virus Vaccine, Quadrivalent, Split, Im Use 0.25ML 80091 Given 04/19/2016 Flu High Dose 21024 Given 04/19/2016 Flumist 73967 Given 04/19/2016 Influenza Virus Vaccine, Quadrivalent, Split, Preservative Free 25474 Given 04/19/2016 Flu < 65 years 57876 Given 04/19/2016 Influenza Virus Vaccine, Quadrivalent, Split, Im Use 0.25ML 69352 Given 04/19/2016 Influenza Virus Vaccine, Quadrivalent, Split, Im Use 0.25ML 15069 Given 04/19/2016 Influenza Virus Vaccine, Quadrivalent, Split, Im Use 0.25ML 04293 Given 08/26/2010 Influenza Virus Vaccine, Quadrivalent, Split, Im Use 0.25ML 53187 Given 08/26/2010 Influenza Virus Vaccine, Split Virus, Preservative Free Im 0.5ML 63031 Given 08/24/2009 Tdap - Boostrix/Adacel 87189 Given 08/10/2009 Influenza Virus Vaccine, Quadrivalent, Split, Im Use 0.25ML 93653 Given 08/10/2009 H1N1 Immunization Admin (Intramuscular,Intranasal) Inc Counseling 95065 Given 06/26/2009 Influenza Virus Vaccine, Quadrivalent, Split, Im Use 0.25ML 89564 Given 06/26/2009 Influenza Virus Vaccine Split Virus Intramuscular Use 0.5ML 99111 Refused 10/24/2013 Influenza Virus Vaccine, Quadrivalent, Split, [...] Test Result H/L Range Note INR/Protime 10/17/2019 [facility] INR 1.02 Normal 0.82-1.[address] [place], [place] [address] [phone] Laboratory test 10/17/2019 [facility] Partial 27.6 Normal 26.0 -38.[address] [place] [address] PTT [phone] CBC Auto Diff 10/17/2019 [facility] White Blood 9.6 10^3/uL Normal 3.5-10.[address] Count [place], [place] [address] [phone] Red Blood Count 5.08 10^6/uL Normal 4.18-5.48 [...] Red Blood Cells % 0.0 Laboratory 10/17/2019 [facility] Lactic 3.3 mmol/L Critical 0.5-2.0 2 test finding [address] [place] [address] [phone] Troponin-I (TnI) 0.00 ng/mL <0.03 3 Comp Metabolic 10/17/2019 [facility] Sodium 139 mmol/L Normal 135-[address] [place] [address] [phone] Potassium 3.5 mmol/L Normal 3.5-5.0 Chloride 106 [...] Egfr 93.6 >60 4 Lipid Profile 10/17/2019 [facility] Triglycerides 147 mg/dL 5 (Trig/Chol/HDL) [address] [place] [address] [phone] Cholesterol 174 mg/dL 6 HDL Cholesterol 41.2 mg/dL 7 LDL Cholesterol 103 mg/dL 8 Laboratory test 10/17/2019 [facility] Point of Care 131 mg/dL High 70-100 [address] Glucose [place], [place] [address] [phone] 1 Standard intensity warfarin therapeutic range: 2.0-3.0 High intensity warfarin therapeutic range: 2.5-3.5 2 Critical Result LACT:3.3 Called to [id number] at: 18:20:35 by:[id number] Read back by:[id number] [facility] Severe Sepsis and Septic Shock Management Bundle Measure requires all lactic acids initially measuring >2.0 mmol/L be repeated. 3 Troponin-I testing on Plasma Separator Tubes (PST) has a known false positive rate of 0.20-0.40%. All positive troponins reflex immediately to secondary confirmatory testing. Using the [employer] Access Immunoassay systems, the 99th percentile upper [...] 130-159 High: 160-189 Very High: >189 9 Electrician Shop: [id number] Procedures Description No Information Available Medical Devices [...] MerchantDOROTHY 06/28/2019 Z23 Encounter for immunization Josselin MerchantDAISYP 05/07/2019 H10.32 Unspecified acute conjunctivitis, left eye Zoran Saxena MD Plan of Treatment 06/28/2019 - Josselin MerchantDAISYPL73.9 Follicular disorder, unspecifiedComments: discussed folliculitis infection start using bactroban on pustules for 3-5 days if no improvement start antibioitc as directed continue using entle sop on skinreturn if no [id number] Encounter for immunizationAllNew Medication: Doxycycline Hyclate 100 mg - 1 tab by mouth twice a dayMupirocin 2 % - 1 milliliters apply to affected area twice a day Functional Status Description No Information Available Mental Status Description No Information Available Referrals Description No Information Available
--- OUTSIDE RECORDS SUMMARY | 2019-10-31 19:54 | XMS REPORT | Continuity of Care Document ---
:1960 External Reference #:[id number] Author Name Zoran Saxena MD (transmitted by agent of provider Anita Guerrero) Address [address] [place] [id number] Problems Active Problems Provider Date Adult health examination Onset: 01/21/2019 Seizure Zoran Saxena MD Onset: 10/20/2019 Note: Seizures Sep 2019, autoimmune? 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 Bradycardia Zoran Saxena MD Onset: 10/21/2019 Note: During seizures - 7 second pause, pulse in 20s Social History Type Date Description Comments Sex Unknown Tobacco Use Start: Unknown Patient has never smoked Smoking Status Reviewed: 10/30/19 Patient has never smoked Allergies, Adverse Reactions, Alerts Active Allergies Reaction Severity Comments Date Ativan hallucinations 10/29/2019 Inactive Allergies NKDA 10/29/2019 Medications Active Medications SIG Qnty Indications Ordering Date Provider Doxycycline Hyclate 1 tab by mouth 14tabs DOROTHY Bland 06/28/2019 twice a day 100mg Tablets Mupirocin 1 milliliters 22gm DOROTHY Bland 06/28/2019 2% Ointment apply to affected area twice a day Cetirizine HCL 1 at bedtime Oral 30tabs Unknown 08/10/2017 10mg Tablets Amlodipine Besylate 1 by mouth every 90tabs Zoran Saxena MD 5mg day Tablets Divalproex Sodium ER 4 tablets by mouth Unknown every morning and 250mg Tablets ER 24HR 5 every night Vimpat 1 by mouth twice 180tabs Zoran Saxena MD 100mg Tablets per day Levetiracetam 2 tab by mouth Unknown 500mg twice a day Tablets Tamsulosin HCL 1 by mouth every 90caps Zoran Saxena MD 0.4mg day Capsules History Medications Gentamicin Sulfate 1 drops left eye 5ml Zoran Saxena MD 05/07/2019 - 0.3% four times a day 05/28/2019 Solution Immunizations CPT Code Status Date Vaccine Lot # [id number] Given 06/28/2019 Flu < 65 years [id number] 19810 Given 02/18/2019 Hepatitis B >=20 yrs, Energix or Recombivax 88554 Given 01/21/2019 Tdap - Boostrix/Adacel 67139 Given 01/21/2019 Td >=7yrs [place] [address] Given 11/16/2018 Hep B 11-15yr, Recombivax 1.0ml dose only 26614 Given 06/21/2018 Flu < 65 years 10650 Given 05/18/2018 Hepatitis B >=20 yrs, Energix or Recombivax 49331 Given 04/27/2018 Shingrix - Shingles vaccine, Herpes Zoster 13175 Given 02/09/2018 Shingrix - Shingles vaccine, Herpes Zoster 07434 Given 12/26/2017 Hepatitis B >=20 yrs, Energix or Recombivax 76913 Given 11/21/2017 Hepatitis B >=20 yrs, Energix or Recombivax 87635 Given 08/10/2017 Flu < 65 years 70803 Given 04/19/2016 Flu < 65 years 37543 Given 08/24/2009 Tdap - Boostrix/Adacel 02289 Given 08/10/2009 H1N1 Immunization Admin (Intramuscular,Intranasal) Inc Counseling [id number] Refused 10/24/2013 Influenza Virus Vaccine, Quadrivalent, Split, Im Use 0.25ML Vital Signs Date Vital Result Comment 10/30/2019 4:50pm BP Systolic 138 mmHg RT arm BP Diastolic 82 mmHg RT arm Height 71 inches 5'11" Weight 212.00 lb Heart Rate 97 /min Body Temperature 97.4 F O2 % BldC Oximetry 97 % room air BMI (Body Mass Index) 29.6 kg/m2 10/29/2019 10:05am BP Systolic 134 mmHg RT arm BP Diastolic 94 mmHg RT arm Height 69 inches 5'9" Weight 69.00 lb Heart Rate 78 /min Body Temperature 96.4 F O2 % BldC Oximetry 99 % room air BMI (Body Mass Index) 10.2 kg/m2 Results Test Acquired Date Facility Test Result H/L Range Note Laboratory test 10/17/2019 [facility] Lactic Acid 1.8 mmol/L Normal 0.5-2.0 [address] [place] [address] [phone] Laboratory test 10/17/2019 [facility] CSF Total 54 mg/dL High 15-45 2, [address] [place] [address] [phone] CSF Glucose 75 mg/dL High 40-70 4 CSF Culture & 10/17/2019 [facility] CSF Culture SEE RESULT [address] [place] [address] [phone] CSF Cell Count 10/17/2019 [facility] Body Fluid Cerebral Spinal [address] [place] [address] [phone] Body Fluid Appearance Clear Body Fluid Color Colorless CSF Tube # 4 Body Fluid Volume 2.0 mL Body Fluid Comment (SEE NOTE) 6 Body Fluid WBC 16 /mcL Body Fluid RBC 16 /mcL Body Fluid Lymph 86 % Body Fluid Borden 14 % Body Fluid Other Cells 8 Body Fluid Total Cells Counted 73 Fluid Reviewed By MD (SEE NOTE) 7 INR/Protime 10/17/2019 [facility] INR 1.02 Normal 0.82-1.[address] [place] [address] [phone] Laboratory test 10/17/2019 [facility] Partial 27.6 Normal 26.0 -38.[address] [place] [address] Time PTT [phone] CBC Auto Diff 10/17/2019 [facility] White Blood 9.6 10^3/uL Normal 3.5-10.[address] [place] [address] [phone] Red Blood Count 5.08 10^6/uL Normal 4.18-5.48 [...] Red Blood Cells % 0.0 Laboratory 10/17/2019 [facility] Lactic 3.3 mmol/L Critical 0.5-2.0 9 test finding [address] [place] [address] [phone] Troponin-I (TnI) 0.00 ng/mL <0.03 10 Comp Metabolic 10/17/2019 [facility] Sodium 139 mmol/L Normal 135-[address] [place] [address] [phone] Potassium 3.5 mmol/L Normal 3.5-5.0 Chloride 106 [...] Egfr 93.6 >60 11 Lipid Profile 10/17/2019 [facility] Triglycerides 147 mg/dL 12 (Trig/Chol/HDL) [address] [place] [address] [phone] Cholesterol 174 mg/dL 13 HDL Cholesterol 41.2 mg/dL 14 LDL Cholesterol 103 mg/dL 15 Laboratory test 10/17/2019 [facility] C Reactive 1.23 mg/L Normal <8.[address] [place] [address] [phone] Alcohol < 10 mg/dL Normal <10 Urinalysis Profile 10/17/2019 [facility] Urine Color Straw [address] [place] [address] [phone] Urine Appearance Clear Urine Specific [place] 1.038 High 1.010-1.030 Urine pH 7.0 Normal 5-9 Urine Urobilinogen Negative Negative Urine Ketones Negative Negative Urine Protein Negative Negative Urine Leukocytes Negative Negative Urine Blood Negative Negative Urine Nitrite Negative Negative Urine Bilirubin Negative Negative Urine Glucose Negative Negative Laboratory test 10/17/2019 [facility] Point of Care 131 mg/dL High 70-100 16 finding [address] [facility] [place] [address] [phone] [facility] Severe Sepsis and Septic Shock Management Bundle Measure requires all lactic acids initially measuring >2.0 mmol/L be repeated. 2 Comment: Tube 4 3 Comment: Tube 2 4 Comment: Tube 2 5 SEE RESULT BELOW Name: ALONSO CHRISTIE : [address]: Roberto Bryant MD Acct: [id number] Unit: [id number] AGE: 59 Location: ICU [id number] Re10/17/19 Dis: 10/19/19 SEX: M Status: DIS IN SPEC: [id number] VINCENZO: 10/17/19-1914 [facility] DR: Ok Bishop MD REQ: [id number] RECD: 10/17/19 STATUS: COMP [facility] DR: Zoran Saxena MD _ SOURCE: CSF SPDESC: ORDERED: CSF Cult/GS COMMENTS: Comment: Tube 3 Verbal to [email or web address] by [id number] at 0745 on 10/18/19. Results read back accurately. Procedure Result Reported Site CSF Gram Stain Final 10/18/19- 0748 ML No Neutrophils Observed 1+ Nucleated Cells No Organisms Seen Preparation By Cytospin Smear CSF Culture Final 10/21/19- 0946 ML No Growth Day 4 * ML - Main Lab . END OF REPORT DEPARTMENT OF PATHOLOGY, [address] [place] [address] Crispin Li M.D. Director [facility] # [id number] 6 Differential performed on concentrated smear. 7 Mixed lymphocytes and monocytes. No evidence of an acute inflammatory response. No evidence of malignancy. Reviewed by Zuleima Beatty MD 8 Standard intensity warfarin therapeutic range: 2.0-3.0 High intensity warfarin therapeutic range: 2.5-3.5 9 Critical Result LACT:3.3 Called to [id number] at: 18:20:35 by:[id number] Read back by:[id number] [facility] Severe Sepsis and Septic Shock Management Bundle Measure requires all lactic acids initially measuring >2.0 mmol/L be repeated. 10 Troponin-I testing on Plasma Separator Tubes (PST) has a known false positive rate of 0.20-0.40%. All positive troponins reflex immediately to secondary confirmatory testing. Using the [employer] Access Immunoassay systems, the 99th percentile upper [...] 130-159 High: 160-189 Very High: >189 16 Rfid Engineer: [id number] Procedures Date Code Description Status 10/29/2019 80122 Brief Emotional/Behav Assessment W/ Scoring Doc Per Completed Standard Inst Medical Devices Description No Information Available Encounters Type Date Location Provider Dx Diagnosis Office Visit 10/29/2019 10:00a CFJuanpablo Saxena MD R56.9 Unspecified convulsions R00.1 Bradycardia, unspecified N40.0 Benign prostatic hyperplasia without lower urinry tract symp F43.20 Adjustment disorder, unspecified Office Visit 06/28/2019 8:45a [facility] DOROTHY Khan L73.9 Follicular disorder, unspecified Z23 Encounter for immunization Office Visit 05/07/2019 11:00a [facility] Maverick Saxena MD H10.32 Unspecified acute conjunctivitis, left eye Assessments Date Code Description Provider 10/29/2019 R56.9 Seizure Zoran Saxena MD 10/29/2019 R00.1 Bradycardia Zoran Saxena MD 10/29/2019 N40.0 Benign prostatic hyperplasia without lower urinary Zoran Saxena MD tract symptoms 10/29/2019 F43.20 Adjustment disorder, unspecified Zoran Saxena MD 06/28/2019 L73.9 Follicular disorder, unspecified DOROTHY Bland 06/28/2019 Z23 Encounter for immunization DOROTHY Bland 05/07/2019 H10.32 Unspecified acute conjunctivitis, left eye Zoran Saxena MD Plan of Treatment No Information Available Functional Status Description No Information Available Mental Status Description No Information Available Referrals Refer to Dr Reason for Referral Status Appt Date [facility] - Urology consult - urinary Created Alexander/Cristino duque
--- OUTSIDE RECORDS SUMMARY | 2019-10-31 19:54 | XMS REPORT | Continuity of Care Document ---
:1960 External Reference #:[id number] Author Name Zoran Saxena MD Address [address] [place] [id number] Problems Description No Information Available Social History [...] CPT Code Status Date Vaccine Lot # [id number] Given 06/28/2019 Flu < 65 years [id number] 64710 Given 02/18/2019 Hepatitis B >=20 yrs, Energix or Recombivax 41441 Given 01/21/2019 Tdap - Boostrix/Adacel 67390 Given 01/21/2019 Td >=7yrs [place]ivac/[place]d [address]395 Given 11/16/2018 Hep B 11-15yr, Recombivax 1.0ml dose only 58221 Given 06/21/2018 Influenza Virus Vaccine, Split, Preserv Free, Intradermal Use 11302 Given 06/21/2018 Flu High Dose 63920 Given 06/21/2018 Flumist 28647 Given 06/21/2018 Influenza Virus Vaccine, Quadrivalent, Split, Preservative Free 62595 Given 06/21/2018 Flu < 65 years 68987 Given 06/21/2018 Influenza Virus Vaccine, Quadrivalent, Split, Im Use 0.25ML 56787 Given 06/21/2018 Influenza Virus Vaccine, Quadrivalent, Split, Im Use 0.25ML 58269 Given 06/21/2018 Influenza Virus Vaccine, Quadrivalent, Split, Im Use 0.25ML 11775 Given 05/18/2018 Hepatitis B >=20 yrs, Energix or Recombivax 05436 Given 04/27/2018 Shingrix - Shingles vaccine, Herpes Zoster 48538 Given 02/09/2018 Shingrix - Shingles vaccine, Herpes Zoster 79506 Given 12/26/2017 Hepatitis B >=20 yrs, Energix or Recombivax 99675 Given 11/21/2017 Hepatitis B >=20 yrs, Energix or Recombivax 25328 Given 08/10/2017 Influenza Virus Vaccine, Split, Preserv Free, Intradermal Use 67214 Given 08/10/2017 Flu High Dose 63351 Given 08/10/2017 Flumist 21888 Given 08/10/2017 Influenza Virus Vaccine, Quadrivalent, Split, Preservative Free 84026 Given 08/10/2017 Flu < 65 years 79191 Given 08/10/2017 Influenza Virus Vaccine, Quadrivalent, Split, Im Use 0.25ML 80594 Given 08/10/2017 Influenza Virus Vaccine, Quadrivalent, Split, Im Use 0.25ML 42276 Given 08/10/2017 Influenza Virus Vaccine, Quadrivalent, Split, Im Use 0.25ML 64020 Given 04/19/2016 Flu High Dose 97693 Given 04/19/2016 Flumist 78338 Given 04/19/2016 Influenza Virus Vaccine, Quadrivalent, Split, Preservative Free 27716 Given 04/19/2016 Flu < 65 years 86281 Given 04/19/2016 Influenza Virus Vaccine, Quadrivalent, Split, Im Use 0.25ML 13603 Given 04/19/2016 Influenza Virus Vaccine, Quadrivalent, Split, Im Use 0.25ML 55400 Given 04/19/2016 Influenza Virus Vaccine, Quadrivalent, Split, Im Use 0.25ML 06668 Given 08/26/2010 Influenza Virus Vaccine, Quadrivalent, Split, Im Use 0.25ML 09547 Given 08/26/2010 Influenza Virus Vaccine, Split Virus, Preservative Free Im 0.5ML 52412 Given 08/24/2009 Tdap - Boostrix/Adacel 87183 Given 08/10/2009 Influenza Virus Vaccine, Quadrivalent, Split, Im Use 0.25ML 92243 Given 08/10/2009 H1N1 Immunization Admin (Intramuscular,Intranasal) Inc Counseling 89692 Given 06/26/2009 Influenza Virus Vaccine, Quadrivalent, Split, Im Use 0.25ML 48290 Given 06/26/2009 Influenza Virus Vaccine Split Virus Intramuscular Use 0.5ML 04495 Refused 10/24/2013 Influenza Virus Vaccine, Quadrivalent, Split, [...] Result H/L Range Note Laboratory test 10/17/2019 [facility] Lactic Acid 1.8 mmol/L Normal 0.5-2.0 [address] [place] [address] [phone] Laboratory test 10/17/2019 [facility] CSF Total 54 mg/dL High 15-45 2, [address] [place] [address] [phone] CSF Glucose 75 mg/dL High 40-70 4 CSF Culture & 10/17/2019 [facility] CSF Culture SEE RESULT [address] Gram Stain BELOW [place], [place] [address] [phone] INR/Protime 10/17/2019 [facility] INR 1.02 Normal 0.82- [address] 1.09 [place] [address] [phone] Laboratory test 10/17/2019 [facility] Partial 27.6 seconds Normal 26.0- finding [address] Thrombo Time 38.0 [place] [address] PTT [phone] CBC Auto Diff 10/17/2019 [facility] White Blood 9.6 10^3/uL Normal 3.5-[address] Count 0.8 [place] [address] [phone] Red Blood Count 5.08 10^6/uL Normal 4.18-5.48 [...] Red Blood Cells % 0.0 Laboratory 10/17/2019 [facility] Lactic 3.3 mmol/L Critical 0.5-2.0 7 test finding [address] [place] [address] [phone] Troponin-I (TnI) 0.00 ng/mL <0.03 8 Comp Metabolic 10/17/2019 [facility] Sodium 139 mmol/L Normal 135-[address] [place] [address] [phone] Potassium 3.5 mmol/L Normal 3.5-5.0 Chloride 106 [...] Egfr 93.6 >60 9 Lipid Profile 10/17/2019 [facility] Triglycerides 147 mg/dL 10 (Trig/Chol/HDL) [address] [place] [address] [phone] Cholesterol 174 mg/dL 11 HDL Cholesterol 41.2 mg/dL 12 LDL Cholesterol 103 mg/dL 13 Laboratory test 10/17/2019 [facility] C Reactive 1.23 mg/L Normal <8.[address] Protein [place], [place] [address] [phone] Alcohol < 10 mg/dL Normal <10 Urinalysis Profile 10/17/2019 [facility] Urine Color Straw [address] [place], [place] [address] [phone] Urine Appearance Clear Urine Specific [place] 1.038 High 1.010-1.030 Urine pH 7.0 Normal 5-9 Urine Urobilinogen Negative Negative Urine Ketones Negative Negative Urine Protein Negative Negative Urine Leukocytes Negative Negative Urine Blood Negative Negative Urine Nitrite Negative Negative Urine Bilirubin Negative Negative Urine Glucose Negative Negative Laboratory test 10/17/2019 [facility] Point of Care 131 mg/dL High 70-100 14 finding [address] [employer] Glucose [place], [place] [address] [phone] 1 [place] Severe Sepsis and Septic Shock Management Bundle Measure requires all lactic acids initially measuring >2.0 mmol/L be repeated. 2 Comment: Tube 4 3 Comment: Tube 2 4 Comment: Tube 2 5 SEE RESULT BELOW Name: ALONSO CHRISTIE : [address]: Roberto Bryant MD Acct: [id number] Unit: [id number] AGE: 59 Location: ICU [id number] Re10/17/19 SEX: M Status: ADM IN SPEC: [id number] VINCENZO: 10/17/19-[address]: Ok Bishop MD REQ: [id number] RECD: 10/17/19 STATUS: RES OTHR DR: Zoran Saxena MD _ SOURCE: CSF SPDESC: ORDERED: CSF Cult/GS COMMENTS: Comment: Tube 3 Verbal to [id number] by [id number] at 0745 on 10/18/19. Results read back accurately. Procedure Result Reported Site CSF Gram Stain Final 10/18/19- 0748 ML No Neutrophils Observed 1+ Nucleated Cells No Organisms Seen Preparation By Cytospin Smear CSF Culture PENDING * ML - Main Lab . END OF REPORT DEPARTMENT OF PATHOLOGY, [address] [place] [address] Crispin Li M.D. Director [facility] # [id number] 6 Standard intensity warfarin therapeutic range: 2.0-3.0 High intensity warfarin therapeutic range: 2.5-3.5 7 Critical Result LACT:3.3 Called to [id number] at: 18:20:35 by:[id number] Read back by:[id number] [facility] Severe Sepsis and Septic Shock Management Bundle Measure requires all lactic acids initially measuring >2.0 mmol/L be repeated. 8 Troponin-I testing on Plasma Separator Tubes (PST) has a known false positive rate of 0.20-0.40%. All positive troponins reflex immediately to secondary confirmatory testing. Using the [employer] DxI 800 Access Immunoassay systems, the 99th [...] 130-159 High: 160-189 Very High: >189 14 Preparation Center Coordinator: [id number] Procedures Description No Information Available Medical Devices Description No Information Available Encounters Type Date Location Provider Dx Diagnosis Office Visit 06/28/2019 8:45a DOROTHY Patton L73.9 Follicular disorder, unspecified Z23 Encounter for immunization Office Visit 05/07/2019 11:00a CFJuanpablo Saxena MD H10.32 Unspecified acute conjunctivitis, left eye Assessments Date Code Description Provider 06/28/2019 L73.9 Follicular disorder, unspecified Josselin DOROTHY Merchant 06/28/2019 Z23 Encounter for immunization Josselin DOROTHY Merchant 05/07/2019 H10.32 Unspecified acute conjunctivitis, left eye Zoran Saxena MD Plan of Treatment 06/28/2019 - DAISY BlandPL73.9 Follicular disorder, unspecifiedComments: discussed folliculitis infection start using bactroban on pustules for 3-5 days if no improvement start antibioitc as directed continue using entle sop on skinreturn if no [id number] Encounter for immunizationAllNew Medication: Doxycycline Hyclate 100 mg - 1 tab by mouth twice a dayMupirocin 2 % - 1 milliliters apply to affected area twice a day Functional Status Description No Information Available Mental Status Description No Information Available Referrals Description No Information Available
--- OUTSIDE RECORDS SUMMARY | 2019-10-31 19:54 | XMS REPORT | Continuity of Care Document ---
:1960 External Reference #:[id number] Author Name Zoran Saxena MD (transmitted by agent of provider Hipolito Serna) Address [address] [place] [id number] Problems Active Problems Provider Date Adult health [...] Patient has never smoked Smoking Status Reviewed: 10/29/19 Patient has never smoked Allergies, Adverse Reactions, [...] CPT Code Status Date Vaccine Lot # [id number] Given 06/28/2019 Flu < 65 years [id number] 14543 Given 02/18/2019 Hepatitis B >=20 yrs, Energix or Recombivax 82474 Given 01/21/2019 Tdap - Boostrix/Adacel 24261 Given 01/21/2019 Td >=7yrs Tenivac/[place]ols Td 84455 Given 11/16/2018 Hep B 11-15yr, Recombivax 1.0ml dose only 56761 Given 06/21/2018 Flu < 65 years 90362 Given 05/18/2018 Hepatitis B >=20 yrs, Energix or Recombivax 64031 Given 04/27/2018 Shingrix - Shingles vaccine, Herpes Zoster 32176 Given 02/09/2018 Shingrix - Shingles vaccine, Herpes Zoster 61331 Given 12/26/2017 Hepatitis B >=20 yrs, Energix or Recombivax 94279 Given 11/21/2017 Hepatitis B >=20 yrs, Energix or Recombivax 34519 Given 08/10/2017 Flu < 65 years 09696 Given 04/19/2016 Flu < 65 years 72509 Given 08/24/2009 Tdap - Boostrix/Adacel 37712 Given 08/10/2009 H1N1 Immunization Admin (Intramuscular,Intranasal) Inc Counseling [id number] Refused 10/24/2013 Influenza Virus Vaccine, Quadrivalent, Split, Im Use 0.25ML Vital Signs Date Vital Result Comment 10/29/2019 10:05am BP Systolic 134 mmHg RT arm BP Diastolic 94 mmHg RT arm Height 69 inches 5'9" Weight 69.00 lb Heart Rate 78 /min Body Temperature 96.4 F O2 % BldC Oximetry 99 % room air BMI (Body Mass Index) 10.2 kg/m2 06/28/2019 8:48am BP Systolic 130 mmHg BP Diastolic 92 mmHg Weight 212.00 lb Heart Rate 93 /min Body Temperature 97.8 F O2 % BldC Oximetry 98 % Results Test Acquired Date Facility Test Result H/L Range Note Laboratory test 10/17/2019 [facility] Lactic Acid 1.8 mmol/L Normal 0.5-2.0 [address] [place] [address] [phone] Laboratory test 10/17/2019 [facility] CSF Total 54 mg/dL High 15-45 2, [address] [place] [address] [phone] CSF Glucose 75 mg/dL High 40-70 4 CSF Culture & 10/17/2019 [facility] CSF Culture SEE RESULT [address] [place] [address] [phone] CSF Cell Count 10/17/2019 [facility] Body Fluid Cerebral Spinal [address] [place] [address] [phone] Body Fluid Appearance Clear Body Fluid Color Colorless CSF Tube # 4 Body Fluid Volume 2.0 mL Body Fluid Comment (SEE NOTE) 6 Body Fluid WBC 16 /mcL Body Fluid RBC 16 /mcL Body Fluid Lymph 86 % Body Fluid Dare 14 % Body Fluid Other Cells 8 Body Fluid Total Cells Counted 73 Fluid Reviewed By MD (SEE NOTE) 7 INR/Protime 10/17/2019 [facility] INR 1.02 Normal 0.82-1.[address] [place] [address] [phone] Laboratory test 10/17/2019 [facility] Partial 27.6 Normal 26.0 -38.[address] [address] Time PTT [phone] CBC Auto Diff 10/17/2019 [facility] White Blood 9.6 10^3/uL Normal 3.5-10.[address] [place] [address] [phone] Red Blood Count 5.08 10^6/uL Normal 4.18-5.48 [...] Red Blood Cells % 0.0 Laboratory 10/17/2019 [facility] Lactic 3.3 mmol/L Critical 0.5-2.0 9 test finding [address] [place] [address] [phone] Troponin-I (TnI) 0.00 ng/mL <0.03 10 Comp Metabolic 10/17/2019 [facility] Sodium 139 mmol/L Normal 135-[address] [place] [address] [phone] Potassium 3.5 mmol/L Normal 3.5-5.0 Chloride 106 [...] Egfr 93.6 >60 11 Lipid Profile 10/17/2019 [facility] Triglycerides 147 mg/dL 12 (Trig/Chol/HDL) [address] [place] [address] [phone] Cholesterol 174 mg/dL 13 HDL Cholesterol 41.2 mg/dL 14 LDL Cholesterol 103 mg/dL 15 Laboratory test 10/17/2019 [facility] C Reactive 1.23 mg/L Normal <8.[address] [place] [address] [phone] Alcohol < 10 mg/dL Normal <10 Urinalysis Profile 10/17/2019 [facility] Urine Color Straw [address] [place], [place] [address] [phone] Urine Appearance Clear Urine Specific [place] 1.038 High 1.010-1.030 Urine pH 7.0 Normal 5-9 Urine Urobilinogen Negative Negative Urine Ketones Negative Negative Urine Protein Negative Negative Urine Leukocytes Negative Negative Urine Blood Negative Negative Urine Nitrite Negative Negative Urine Bilirubin Negative Negative Urine Glucose Negative Negative Laboratory test 10/17/2019 [facility] Point of Care 131 mg/dL High 70-100 [address] [place] [address] [phone] 1 [facility] Severe Sepsis and Septic Shock Management Bundle Measure requires all lactic acids initially measuring >2.0 mmol/L be repeated. 2 Comment: Tube 4 3 Comment: Tube 2 4 Comment: Tube 2 5 SEE RESULT BELOW Name: ALONSO CHRISTIE : [address]: Roberto Bryant MD Acct: [id number] Unit: [id number] AGE: 59 Location: ICU [id number] Re10/17/19 Dis: 10/19/19 SEX: M Status: DIS IN SPEC: [id number] VINCENZO: 10/17/19-[address] [facility] DR: Ok Bishop MD REQ: [id number] RECD: 10/17/19 STATUS: COMP OTHR DR: Zoran Saxena MD _ SOURCE: CSF SPDESC: ORDERED: CSF Cult/GS COMMENTS: Comment: Tube 3 Verbal to [id number] by [id number] at 0745 on 10/18/19. Results read back accurately. Procedure Result Reported Site CSF Gram Stain Final 10/18/19- 0748 ML No Neutrophils Observed 1+ Nucleated Cells No Organisms Seen Preparation By Cytospin Smear CSF Culture Final 10/21/19- 0946 ML No Growth Day 4 * ML - Main Lab . END OF REPORT DEPARTMENT OF PATHOLOGY, [address] [place] [address] Crispin Li M.D. Director [facility] # [id number] 6 Differential performed on concentrated smear. 7 Mixed lymphocytes and monocytes. No evidence of an acute inflammatory response. No evidence of malignancy. Reviewed by Zuleima Beatty MD 8 Standard intensity warfarin therapeutic range: 2.0-3.0 High intensity warfarin therapeutic range: 2.5-3.5 9 Critical Result LACT:3.3 Called to [id number] at: 18:20:35 by:[id number] Read back by:[id number] [facility] Severe Sepsis and Septic Shock Management Bundle Measure requires all lactic acids initially measuring >2.0 mmol/L be repeated. 10 Troponin-I testing on Plasma Separator Tubes (PST) has a known false positive rate of 0.20-0.40%. All positive troponins reflex immediately to secondary confirmatory testing. Using the [employer] DxI 800 Access Immunoassay systems, the 99th [...] 130-159 High: 160-189 Very High: >189 16 Sap Basis Consultant: [id number] Procedures Date Code Description Status 10/29/2019 46810 Brief Emotional/Behav Assessment W/ Scoring Doc Per Completed Standard Inst Medical Devices Description No Information Available Encounters Type Date Location Provider Dx Diagnosis Office Visit 06/28/2019 8:45a DOROTHY Daniel L73.9 Follicular disorder, unspecified Z23 Encounter for immunization Office Visit 05/07/2019 11:00a Juanpablo Saxena MD H10.32 Unspecified acute conjunctivitis, left eye Assessments Date Code Description Provider 06/28/2019 L73.9 Follicular disorder, unspecified DOROTHY Bland 06/28/2019 Z23 Encounter for immunization Josselin Merchant, [facility] 05/07/2019 H10.32 Unspecified acute conjunctivitis, left eye Zoran Saxena MD Plan of Treatment No Information Available Functional Status Description No Information Available Mental Status Description No Information Available Referrals Refer to Reason for Referral Status Appt Date [facility] - Urology consult - urinary Created Alexander/Cristino hesitancy
--- OUTSIDE RECORDS SUMMARY | 2019-10-31 19:54 | XMS REPORT | Continuity of Care Document ---
:1960 External Reference #:[id number] Author Name Zoran Saxena MD Address [address] [place] [id number] Problems Active Problems Provider Date Adult health [...] CPT Code Status Date Vaccine Lot # [id number] Given 06/28/2019 Flu < 65 years [id number] 80472 Given 02/18/2019 Hepatitis B >=20 yrs, Energix or Recombivax 48891 Given 01/21/2019 Tdap - Boostrix/Adacel 67606 Given 01/21/2019 Td >=7yrs [place] [address] Given 11/16/2018 Hep B 11-15yr, Recombivax 1.0ml dose only 17302 Given 06/21/2018 Influenza Virus Vaccine, Split, Preserv Free, Intradermal Use 09831 Given 06/21/2018 Flu High Dose 54604 Given 06/21/2018 Flumist 65381 Given 06/21/2018 Influenza Virus Vaccine, Quadrivalent, Split, Preservative Free 54314 Given 06/21/2018 Flu < 65 years 25146 Given 06/21/2018 Influenza Virus Vaccine, Quadrivalent, Split, Im Use 0.25ML 43515 Given 06/21/2018 Influenza Virus Vaccine, Quadrivalent, Split, Im Use 0.25ML 95370 Given 06/21/2018 Influenza Virus Vaccine, Quadrivalent, Split, Im Use 0.25ML 39911 Given 05/18/2018 Hepatitis B >=20 yrs, Energix or Recombivax 37620 Given 04/27/2018 Shingrix - Shingles vaccine, Herpes Zoster 28702 Given 02/09/2018 Shingrix - Shingles vaccine, Herpes Zoster 49272 Given 12/26/2017 Hepatitis B >=20 yrs, Energix or Recombivax 42856 Given 11/21/2017 Hepatitis B >=20 yrs, Energix or Recombivax 66175 Given 08/10/2017 Influenza Virus Vaccine, Split, Preserv Free, Intradermal Use 65120 Given 08/10/2017 Flu High Dose 85506 Given 08/10/2017 Flumist 74152 Given 08/10/2017 Influenza Virus Vaccine, Quadrivalent, Split, Preservative Free 08302 Given 08/10/2017 Flu < 65 years 00625 Given 08/10/2017 Influenza Virus Vaccine, Quadrivalent, Split, Im Use 0.25ML 88144 Given 08/10/2017 Influenza Virus Vaccine, Quadrivalent, Split, Im Use 0.25ML 33430 Given 08/10/2017 Influenza Virus Vaccine, Quadrivalent, Split, Im Use 0.25ML 23866 Given 04/19/2016 Flu High Dose 21231 Given 04/19/2016 Flumist 44981 Given 04/19/2016 Influenza Virus Vaccine, Quadrivalent, Split, Preservative Free 73966 Given 04/19/2016 Flu < 65 years 91529 Given 04/19/2016 Influenza Virus Vaccine, Quadrivalent, Split, Im Use 0.25ML 67238 Given 04/19/2016 Influenza Virus Vaccine, Quadrivalent, Split, Im Use 0.25ML 42734 Given 04/19/2016 Influenza Virus Vaccine, Quadrivalent, Split, Im Use 0.25ML 75891 Given 08/26/2010 Influenza Virus Vaccine, Quadrivalent, Split, Im Use 0.25ML 00656 Given 08/26/2010 Influenza Virus Vaccine, Split Virus, Preservative Free Im 0.5ML 66595 Given 08/24/2009 Tdap - Boostrix/Adacel 29933 Given 08/10/2009 Influenza Virus Vaccine, Quadrivalent, Split, Im Use 0.25ML 93305 Given 08/10/2009 H1N1 Immunization Admin (Intramuscular,Intranasal) Inc Counseling 91476 Given 06/26/2009 Influenza Virus Vaccine, Quadrivalent, Split, Im Use 0.25ML 76440 Given 06/26/2009 Influenza Virus Vaccine Split Virus Intramuscular Use 0.5ML 01159 Refused 10/24/2013 Influenza Virus Vaccine, Quadrivalent, Split, [...] Result H/L Range Note Laboratory test 10/17/2019 [facility] Lactic Acid 1.8 mmol/L Normal 0.5-2.0 [address] [place], [place] [address] [phone] Laboratory test 10/17/2019 [facility] CSF Total 54 mg/dL High 15-45 2, [address] Protein [place], [place] [address] [phone] CSF Glucose 75 mg/dL High 40-70 4 CSF Culture & 10/17/2019 [facility] CSF Culture SEE RESULT [address] Gram Stain BELOW [place], [place] [address] [phone] CSF Cell Count 10/17/2019 [facility] Body Fluid Cerebral Spinal [address] [place], [place] [address] [phone] Body Fluid Appearance Clear Body Fluid Color Colorless CSF Tube # 4 Body Fluid Volume 2.0 mL Body Fluid Comment (SEE NOTE) 6 Body Fluid WBC 16 /mcL Body Fluid RBC 16 /mcL Body Fluid Lymph 86 % Body Fluid [place] 14 % Body Fluid Other Cells 8 Body Fluid Total Cells Counted 73 Fluid Reviewed By MD (SEE NOTE) 7 INR/Protime 10/17/2019 [facility] INR 1.02 Normal 0.82-1.[address] [place] [address] [phone] Laboratory test 10/17/2019 [facility] Partial 27.6 Normal 26.0 -38.[address] [place] [address] Time PTT [phone] CBC Auto Diff 10/17/2019 [facility] White Blood 9.6 10^3/uL Normal 3.5-10.[address] [place] [address] [phone] Red Blood Count 5.08 10^6/uL Normal 4.18-5.48 [...] Red Blood Cells % 0.0 Laboratory 10/17/2019 [facility] Lactic 3.3 mmol/L Critical 0.5-2.0 9 test finding [address] [place] [address] [phone] Troponin-I (TnI) 0.00 ng/mL <0.03 10 Comp Metabolic 10/17/2019 [facility] Sodium 139 mmol/L Normal 135-[address] [place] [address] [phone] Potassium 3.5 mmol/L Normal 3.5-5.0 Chloride 106 [...] Egfr 93.6 >60 11 Lipid Profile 10/17/2019 [facility] Triglycerides 147 mg/dL 12 (Trig/Chol/HDL) [address] [place], [place] [address] [phone] Cholesterol 174 mg/dL 13 HDL Cholesterol 41.2 mg/dL 14 LDL Cholesterol 103 mg/dL 15 Laboratory test 10/17/2019 [facility] C Reactive 1.23 mg/L Normal <8.[address] [facility] Protein [place], [place] [address] [phone] Alcohol < 10 mg/dL Normal <10 Urinalysis Profile 10/17/2019 [facility] Urine Color Straw [address] [place], [place] [address] [phone] Urine Appearance Clear Urine Specific Colon 1.038 High 1.010-1.030 Urine pH 7.0 Normal 5-9 Urine Urobilinogen Negative Negative Urine Ketones Negative Negative Urine Protein Negative Negative Urine Leukocytes Negative Negative Urine Blood Negative Negative Urine Nitrite Negative Negative Urine Bilirubin Negative Negative Urine Glucose Negative Negative Laboratory test 10/17/2019 [facility] Point of Care 131 mg/dL High 70-100 [address] [facility] [place] [address] [phone] 1 [facility] Severe Sepsis and Septic Shock Management Bundle Measure requires all lactic acids initially measuring >2.0 mmol/L be repeated. 2 Comment: Tube 4 3 Comment: Tube 2 4 Comment: Tube 2 5 SEE RESULT BELOW Name: ALONSO CHRISTIE : [address]: Roberto Bryant MD Acct: [id number] Unit: [id number] AGE: 59 Location: ICU [id number] Re10/17/19 Dis: 10/19/19 SEX: M Status: DIS IN SPEC: [id number] VINCENZO: 10/17/[address]: Ok Bishop MD REQ: [id number] RECD: 10/17/19 STATUS: KEYON TRACEY DR: Zoran Saxena MD _ SOURCE: CSF SPDESC: ORDERED: CSF Cult/GS COMMENTS: Comment: Tube 3 Verbal to [id number] by [id number] at 0745 on 10/18/19. Results read back accurately. Procedure Result Reported Site CSF Gram Stain Final 10/18/19- 0748 ML No Neutrophils Observed 1+ Nucleated Cells No Organisms Seen Preparation By Cytospin Smear CSF Culture Final 10/21/19- 46 ML No Growth Day 4 * ML - Main Lab . END OF REPORT DEPARTMENT OF PATHOLOGY, [address] [place] [address] Crispin Li M.D. Director [facility] # [id number] 6 Differential performed on concentrated smear. 7 Mixed lymphocytes and monocytes. No evidence of an acute inflammatory response. No evidence of malignancy. Reviewed by Zuleima Beatty MD 8 Standard intensity warfarin therapeutic range: 2.0-3.0 High intensity warfarin therapeutic range: 2.5-3.5 9 Critical Result LACT:3.3 Called to [id number] at: 18:20:35 by:[id number] Read back by:[id number] [facility] Severe Sepsis and Septic Shock Management Bundle Measure requires all lactic acids initially measuring >2.0 mmol/L be repeated. 10 Troponin-I testing on Plasma Separator Tubes (PST) has a known false positive rate of 0.20-0.40%. All positive troponins reflex immediately to secondary confirmatory testing. Using the [employer] DxI 800 Access Immunoassay systems, the 99th [...] 130-159 High: 160-189 Very High: >189 16 Electrical Inspector: [id number] Procedures Description No Information Available Medical Devices Description No Information Available Encounters Type Date Location Provider Dx Diagnosis Office Visit 06/28/2019 8:45a [facility] DOROTHY Khan L73.9 Follicular disorder, unspecified Z23 Encounter for immunization Office Visit 05/07/2019 11:00a [facility] Maverick Saxena MD H10.32 Unspecified acute conjunctivitis, [...] using entle sop on skinreturn if no [id number] Encounter for immunizationAllNew Medication: Doxycycline Hyclate 100 mg - 1 tab by mouth twice a dayMupirocin 2 % - 1 milliliters apply to affected area twice a day Functional Status Description No Information Available Mental Status Description No Information Available Referrals Description No Information Available
--- OUTSIDE RECORDS SUMMARY | 2019-10-31 19:54 | XMS REPORT | Continuity of Care Document ---
:1960 External Reference #:[id number] Author Name Mulugeta Boston M.D., [facility] (transmitted by agent of provider Zuleima Ovalle) Address [address] [place] [address] Care Team Providers Name Role Phone Zoran Saxena MD - Family Medicine Care Team Information Dialer Problems Description No Information Available Social History Type Date Description Comments Sex Unknown ETOH Use Rarely consumes alcohol Tobacco Use Start: Unknown Patient has never smoked Smoking Status Reviewed: 10/28/19 Patient has never smoked Exercise Type/Frequency Exercises regularly walking Allergies, Adverse Reactions, Alerts Active Allergies Reaction Severity Comments Date Ativan hallucinations 10/28/2019 Inactive Allergies NKDA 10/24/2019 Medications Active Medications SIG Qnty Indications Ordering Provider Date Vimpat take one tablet Unknown 100mg Tablets by mouth twice a day. mdd 2. code c Keppra 1 by mouth twice 60tabs Howard Ray MD 1000mg Tablets a day Amlodipine Besylate 1 by mouth every Unknown 5mg day Tablets Tamsulosin HCL 1 by mouth every Unknown 0.4mg day Capsules Divalproex Sodium 4 tabs by mouth 270tabs Howard Ray MD 250mg in am [address] pm Immunizations Description No Information Available Vital Signs Date Vital Result Comment 10/28/2019 8:57am Height 71 inches 5'11" Weight 207.00 lb Heart Rate 88 /min BP Systolic 140 mmHg BP Diastolic 84 mmHg BMI (Body Mass Index) 28.9 kg/m2 Results Test Acquired Date Facility Test Result H/L Range Note CBC Auto 10/28/2019 [facility] White Blood 9.5 10^3/uL Normal 3.5-10.[address] [place] [address] [phone] Red Blood Count 5.22 10^6/uL Normal 4.18-5.48 Hemoglobin 15.6 g/dL Normal 14.0-18.0 Hematocrit 45 % Normal 42-52 Mean Corpuscular Volume 87 fL Normal 80-94 Mean Corpuscular Hemoglobin 30 pg Normal 27-31 Mean Corpuscular HGB Conc 35 g/dL Normal 31-36 Red Cell Distribution Width 13 % Normal 10-15 Platelet Count 312 10^3/uL Normal 150-450 Mean Platelet Volume 8.1 fL Normal 7.4-10.4 Abs Neutrophils 6.6 10^3/uL Normal 1.5-7.7 Abs Lymphocytes 1.5 10^3/uL Normal 1.0-4.8 Abs Monocytes 1.2 10^3/uL High 0-0.8 Abs Eosinophils 0.3 10^3/uL Normal 0-0.6 Abs Basophils 0.0 10^3/uL Normal 0-0.2 Abs Nucleated RBC 0.0 10^3/uL Granulocyte % 68.8 % Lymphocyte % 15.9 % Monocyte % 12.2 % Eosinophil % 2.7 % Basophil % 0.4 % Nucleated Red Blood Cells % 0.0 Laboratory test 10/28/2019 [facility] Levetiracetam 20.9 g/mL [address] (Keppra) [place] [address] [phone] Valproic Acid (Depakene) 75.0 g/mL Normal 50-100 Lacosamide 3.9 g/mL 1.0 - 10.0 2 Comp Metabolic 10/28/2019 [facility] Sodium 141 mmol/L Normal 135-[address] [place] [address] [phone] Potassium 4.3 mmol/L Normal 3.5-5.0 Chloride 101 mmol/L Normal 101-111 Co2 Carbon Dioxide 34 mmol/L High 22-32 Anion Gap 6 mmol/L Normal 2-11 Glucose 113 mg/dL High 70-100 Blood Urea Nitrogen 15 mg/dL Normal 6-24 Creatinine 0.75 mg/dL Normal 0.67-1.17 BUN/Creatinine Ratio 20.0 Normal 8-20 Calcium 9.3 mg/dL Normal 8.6-10.3 Total Protein 6.4 g/dL Normal 6.4-8.9 Albumin 4.1 g/dL Normal 3.2-5.2 Globulin 2.3 g/dL Normal 2-4 Albumin/Globulin Ratio 1.8 Normal 1-3 Total Bilirubin 0.60 mg/dL Normal 0.2-1.0 Alkaline Phosphatase 52 U/L Normal 34-104 Alt 65 U/L High 7-52 Ast 36 U/L Normal 13-39 Egfr Non- 106.6 >60 Egfr 129.0 >60 3 1 REFERENCE VALUE 12.0 - 46.0 ADDITIONAL INFORMATION This test was developed and its performance characteristics determined by [facility] in a manner consistent with CLIA requirements. This test has not been cleared or approved by the U.S. Food and Drug Administration. Test Performed by: [facility] [place] [address] Ground Hand: Eber Calzada M.D. Ph.D.; CLIA# [id number] 2 ADDITIONAL INFORMATION This test was developed and its performance characteristics determined by [facility] in a manner consistent with CLIA requirements. This test has not been cleared or approved by the U.S. Food and Drug Administration. Test Performed by: [facility] [place] [address] Ground Hand: Eber Calzada M.D. Ph.D.; CLIA# [id number] 3 Because ethnic data is not always readily [...] 15-29 5 Kidney failure <15 (or dialysis) Procedures Date Code Description Status 10/18/2019 98966 ECHO Transthorasic Realtime 2D W Doppler & Color Flow Hosp Completed Medical Devices Description No Information Available Encounters Type Date Location Provider Dx Diagnosis Office Visit 10/18/2019 [facility] Mulugeta Pringle I49.8 Other specified 1:38p Of Jil Boston M.D., cardiac arrhythmias [facility] R56.9 Unspecified convulsions R55 Syncope and collapse Office Visit 10/18/2019 [facility] Isabella R56.9 Unspecified 12:01p 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,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D., FACC, arrhythmias [facility] 10/18/2019 R56.9 Unspecified convulsions Mulugeta Boston M.D., [facility], [facility] 10/18/2019 R56.9 Unspecified convulsions Isabella Stocking, 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 10/18/2019 R55 Syncope and collapse Mulugeta Boston M.D., [facility], [facility] 10/18/2019 R00.1 Bradycardia, unspecified Isabella Stocking, [facility] 10/18/2019 W19.xxxA Unspecified fall, initial Isabella Chavarria, 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 encounter 10/17/2019 R56.9 Unspecified convulsions Audrey Talley M.D. Plan of Treatment Future Appointment(s):12/03/2019 8:45 am - Zoran Alegre M.D. at [facility]10/28/2019 - Howard Ray, MDR00.1 Bradycardia, ythrrwrjgorB78.209 Localization-related (focal) (partial) symptomatic epilepsy and epileptic syndromes with complex partial seizures, not intractable, without status epilepticus Functional Status Description No Information Available Mental Status Description No Information Available Referrals Description No Information Available
[2019-10-31 21:14] LABS: Hematocrit 42 % (42-52); Hemoglobin 14.4 g/dL (14.0-18.0); Mean Corpuscular HGB Conc 34 g/dL (31-36); Mean Corpuscular Hemoglobin 30 pg (27-31); Mean Corpuscular Volume 87 fL (80-94); Mean Platelet Volume 7.8 fL (7.4-10.4); Platelet Count 265 10^3/uL (150-450); Red Blood Count 4.83 10^6 /uL (4.18-5.48); Red Cell Distribution Width 14 % (10-15); White Blood Count 25.5 10^3/uL (3.5-10.8)
[2019-10-31] MEDS ORDERED: NS 0.9% 1000 ML** 1,000 ML IV.FLUID IV ONE (21:24)
[2019-10-31 21:31] LABS: Albumin/Globulin Ratio 1.4 (1-3); BUN/Creatinine Ratio 21.3 (8-20); C Reactive Protein 114.9 mg/L (<8.01); Calcium 9.5 mg/dL (8.6-10.3); EGFR African American 99.4 (>60); EGFR Non-African American 82.1 (>60); Globulin 2.8 g/dL (2-4); Potassium 4.1 mmol/L (3.5-5.0); Total Bilirubin 0.5 mg/dL (0.2-1.0); Total Protein 6.8 g/dL (6.4-8.9)
--- NOTE | 2019-10-31 21:42 | ED ---
HPI Febrile Illness - HPI Summary HPI Summary: 59 year old male presents with fever today. States that fever was 101 at home but took some ibuprofen prior to arrival. He states that he has been having issues with urinary retention. He saw his urologist today and told that he has to self catheter. His urine was brown earlier at urology so they started him on cipro. He has taken 2 doses so far. He denies any cough. No chest pressures or shortness of breath. He admits to flank pain. He denies any sinus congestion or sore throat. No sick contacts but has been in and out of the hospital. - History of Current Complaint Chief Complaint: EDUrogenitalProblems Time Seen by Provider: 10/31/19 21:21 Pain Intensity: 0 - Additional Pertinent History Primary Care Physician: VADIM - Allergy/Home Medications Allergies/Adverse Reactions: Allergies Allergy/AdvReac Type Severity Reaction Status Date / Time environmental Allergy Runny Nose Uncoded 10/17/19 17:44 Home Medications: Home Medications Ciprofloxacin TAB* [Cipro 500 MG TAB*] 500 mg PO BID 10/31/19 [History Confirmed 10/31/19] Divalproex DR TAB(*) [Depakote DR TAB(*)] 1,000 mg PO QAM 10/31/19 [History Confirmed 10/31/19] Divalproex DR TAB(*) [Breanna MARK TAB(*)] 1,250 mg PO QPM 10/31/19 [History Confirmed 10/31/19] Lacosamide TAB* [Vimpat TAB*] 100 mg PO BID 10/31/19 [History Confirmed 10/31/19 ] Tamsulosin CAP* [Flomax CAP*] 0.4 mg PO QPM 10/31/19 [History Confirmed 10/31/19 ] amLODIPine TAB* [Norvasc 5 mg TAB*] 5 mg PO DAILY 10/31/19 [History Confirmed ] levETIRAcetam TAB* [Keppra TAB*] 1,000 mg PO BID 10/31/19 [History Confirmed 08/09] PMH/Surg Hx/FS Hx/Imm Hx Endocrine/Hematology History: Denies: Hx Diabetes Cardiovascular History: Denies: Hx Hypertension, Hx Pacemaker/ICD, Hx Peripheral Vascular Disease Respiratory History: Reports: Hx Asthma - as child Denies: Other Respiratory Problems/Disorders Musculoskeletal History: Denies: Hx Arthritis, Hx Osteoporosis Sensory History: Reports: Hx Contacts or Glasses Denies: Hx Cataracts, Hx Glaucoma, Hx Hearing Aid Opthamlomology History: Reports: Hx Contacts or Glasses Denies: Hx Cataracts, Hx Glaucoma Neurological History: Reports: Hx Headaches, Hx Seizures - 10/17/2019 Denies: Hx Transient Ischemic Attacks (TIA) Psychiatric History: Denies: Hx Anxiety, Hx Depression, Hx Panic Disorder - Surgical History Surgery Procedure, Year, and Place: tonsils Infectious Disease History: No Infectious Disease History: Denies: Traveled Outside the [place] in Last 30 Days - Family History Known Family History: Negative: Diabetes - Social History Alcohol Use: None Hx Substance Use: No Substance Use Type: Reports: None Hx Tobacco Use: No Smoking Status (MU): Never Smoked Tobacco Have You Smoked in the Last Year: No Review of Systems Positive: Fever, Chills Negative: Chest Pain Negative: Shortness Of Breath, Cough Negative: Abdominal Pain, Vomiting Positive: flank pain All Other Systems Reviewed And Are Negative: Yes Physical Exam Triage Information Reviewed: Yes Vital Signs On Initial Exam: Initial Vitals Temp Pulse Resp BP Pulse Ox 98.6 F 116 20 146/98 95 10/31/19 19:44 10/31/19 19:44 10/31/19 19:44 10/31/19 19:44 10/31/19 19:44 Vital Signs Reviewed: Yes Appearance: Positive: Well-Appearing Skin: Positive: Warm, Dry Head/Face: Positive: Normal Head/Face Inspection Eyes: Positive: Normal, Conjunctiva Clear ENT: Positive: Pharynx normal Respiratory/Lung Sounds: Positive: Clear to Auscultation, Breath Sounds Present Cardiovascular: Positive: Normal, RRR Abdomen Description: Positive: Nontender, Soft, CVA Tenderness (R), CVA Tenderness (L) Bowel Sounds: Positive: Present Musculoskeletal: Positive: Normal Neurological: Positive: Normal Psychiatric: Positive: Normal Procedures - Sedation Patient Received Moderate/Deep Sedation with Procedure: No Diagnostics - Vital Signs Vital Signs Temp Pulse Resp BP Pulse Ox 10/31/19 19:44 98.6 F 116 20 146/98 95 - Laboratory Lab Results: Lab Results 10/31/19 10/31/19 10/31/19 Range/Units 21:06 21:06 21:06 WBC 25.5 H (3.5-10.8) 10^3/uL RBC 4.83 (4.18-5.48) 10^6 /uL Hgb 14.4 (14.0-18.0) g/dL Hct 42 (42-52) % MCV 87 (80-94) fL MCH 30 (27-31) pg MCHC 34 (31-36) g/dL RDW 14 (10-15) % Plt Count 265 (150-450) 10^3/uL MPV 7.8 (7.4-10.4) fL Neut % (Auto) Pending Lymph % (Auto) Pending [place] % (Auto) Pending Eos % (Auto) Pending Baso % (Auto) Pending Absolute Neuts (auto) Pending Absolute Lymphs (auto) Pending Absolute Monos (auto) Pending Absolute Eos (auto) Pending Absolute Basos (auto) Pending Absolute Nucleated RBC Pending Nucleated RBC % Pending Sodium 139 (135-145) mmol/L Potassium 4.1 (3.5-5.0) mmol/L Chloride 99 L (101-111) mmol/L Carbon Dioxide 32 (22-32) mmol/L Anion Gap 8 (2-11) mmol/L BUN 20 (6-24) mg/dL Creatinine 0.94 (0.67-1.17) mg/dL Est GFR ( Amer) 99.4 (>60) Est GFR (Non-Af Amer) 82.1 (>60) BUN/Creatinine Ratio 21.3 H (8-20) Glucose 132 H (70-100) mg/dL Lactic Acid 1.8 (0.5-2.0) mmol/L Calcium 9.5 (8.6-10.3) mg/dL Total Bilirubin 0.50 (0.2-1.0) mg/dL AST 23 (13-39) U/L ALT 38 (7-52) U/L Alkaline Phosphatase 70 (34-104) U/L C-Reactive Protein 114.90 H (<8.01) mg/L Total Protein 6.8 (6.4-8.9) g/dL Albumin 4.0 (3.2-5.2) g/dL Globulin 2.8 (2-4) g/dL Albumin/Globulin Ratio 1.4 (1-3) Result Diagrams: 10/31/19 21:06 10/31/19 21:06 Lab Statement: Any lab studies that have been ordered have been reviewed, and results considered in the medical decision making process. - Radiology chest Radiology Interpretation Completed By: ED Physician Summary of Radiographic Findings: no active disease - Ultrasound renal Ultrasound Interpretation Completed By: Radiologist Summary of Ultrasound Findings: IMPRESSION: No visible calculi or hydronephrosis. Course/Dx - Course Course Of Treatment: 59 year old male presents with fever today. States that fever was 101 at home but took some ibuprofen prior to arrival. He states that he has been having issues with urinary retention. He saw his urologist today and told that he has to self catheter. His urine was brown earlier at urology so they started him on cipro. He has taken 2 doses so far. He denies any cough. No chest pressures or shortness of breath. He admits to flank pain. He denies any sinus congestion or sore throat. No sick contacts but has been in and out of the hospital. On exam tenderness over bilateral flanks. He is afebrile but his tachycardia. wbc 25. gave fluids and rocephin. urine shows uti. renal ultrasound normal. chest xray normal. discussed with hospitalist who agree to admit. - Febrile Illness Differential Diagnoses: Pneumonia, Pyelonephritis, Viremia - Diagnoses Provider Diagnoses: UTI (urinary tract infection), Sepsis - Critical Care Time Critical Care Time: 30-74 min - 40 mins Discharge ED - Sign-Out/Discharge Documenting (check all that apply): Patient Departure - Discharge Plan Condition: Stable Disposition: ADMITTED TO [facility] Referrals: Zoran Saxena MD [Primary Care Provider] - - Billing Disposition and Condition Condition: STABLE Disposition: Admitted to [facility]
[2019-10-31] MEDS ORDERED: cefTRIAXone(*) 1 GM in NS 0.9% 50 ML* 50 ML IVPB ONE (22:08)
[2019-10-31 22:24] LABS: ABS Basophils 0.1 10^3/ul (0-0.2); ABS Eosinophils 0.1 10^3/ul (0-0.6); ABS Lymphocytes 0.6 10^3/ul (1.0-4.8); ABS Monocytes 2.1 10^3/ul (0-0.8); ABS Neutrophils 22.5 10^3/ul (1.5-7.7); Eosinophil % 0.5 %; Lymphocyte % 2.5 %
[2019-10-31 22:54] LABS: Urine Appearance Turbid; Urine Bilirubin Negative (Negative); Urine Blood 3+ (Negative); Urine Color Amber; Urine Glucose Negative (Negative); Urine Ketones 1+ (Negative); Urine Nitrite Negative (Negative); Urine Protein 2+(100 mg/dL) (Negative); Urine Specific Gravity 1.029 (1.010-1.030); Urine Urobilinogen Negative (Negative)
[2019-10-31 22:56] LABS: Urine Bacteria Absent (Absent); Urine Red Blood Cell 3+(>10/hpf) (Absent); Urine White Blood Cell 3+(>20/hpf) (Absent)
[2019-10-31 23:11] LABS: Influenza A Molecular Negative (Negative); Influenza B Molecular Negative (Negative)
[2019-11-01] MEDS ORDERED: Al Hydrox/Mg Hydrox/Simet LIQ* 30 ML UDC PO PRN (06:27)
[2019-11-01] MEDS: amLODIPine TAB* 5 MG PO SCH (07:56)
[2019-11-01] MEDS: levETIRAcetam TAB* 500 MG PO SCH ×2 (07:56→20:42)
[2019-11-01] MEDS: Divalproex DR TAB(*) 500 MG PO SCH (07:57)
[2019-11-01] MEDS: Docusate CAP* 100 MG PO SCH ×2 (07:57→20:42)
[2019-11-01] MEDS: Acetaminophen TAB* 325 MG PO PRN ×2 (09:30→13:56)
[2019-11-01] MEDS: Lacosamide TAB* 100 MG TAB PO SCH ×2 (09:30→20:43)
[2019-11-01] MEDS: NS 0.9% 1000 ML** 1,000 ML IV SCH ×2 (09:30→20:42)
--- NOTE | 2019-11-01 13:50 | HP ---
HISTORY AND PHYSICAL: DATE OF ADMISSION: 11/02/19 HISTORY OF PRESENT ILLNESS: This is a 59-year-old male who presented with fever today. He stated that recorded temperature was 101 at home, but he took some antipyretics prior to presentation in the ED. The patient originally was seen here on 10/17/19 with history of seizure, after which he seen to be bradycardic and Cardiology was consulted. Secondly, he had urinary retention which prompted insertion of [place] catheter. Voiding trial was done that he failed. He came back today on the alert of his urologist, who stated that he need to be taught self- catheter. His urine was brown earlier at the Urology place and he was started on antibiotic, Cipro; states he has taken 2 doses so far before presentation. He denies any cough. No chest pressure or shortness of breath, but admits to flank pain. He denies sinus congestion or sore throat. No sick contact and has been in and out of hospital and no recent travel. PAST MEDICAL HISTORY: Significant for childhood asthma and environmental allergies and now recent history of seizures. CURRENT HOME MEDICATIONS: 1. Amlodipine 5 mg p.o. daily. 2. Divalproex 1000 mg p.o. q.a.m. and 1250 mg p.o. q.p.m. 4. Lacosamide 100 mg p.o. b.i.d. 5. Levetiracetam or Keppra 1000 mg p.o. b.i.d. 6. Tamsulosin 0.4 mg p.o. daily. ALLERGIES: There are no known drug allergies. FAMILY HISTORY: Significant for cancer. There is also cardiac disease in his brother. No family history of stroke. There is a family history of intracranial aneurysm. Dad had dementia. Mom had essential tremor. SOCIAL HISTORY: The patient does not smoke cigarettes or abuse alcohol. Denies use of illicit drugs. 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 The patient walks 20 minutes to work and 20 minutes back from work as well as his work requires climbing 3 flights of stairs. REVIEW OF SYSTEMS: He denies personal history of stroke, cancer, bleeding. He denies emphysema, sleep apnea, home oxygen use, diabetes. He denies history of thyroid disease, liver disease, kidney disease. Denies history of Parkinson disease or myasthenia gravis. Negative chest pain, shortness of breath. Negative cough. Negative abdominal pain. Negative vomiting. Positive flank pain. Positive France catheter insertion. Positive seizures. PHYSICAL EXAMINATION GENERAL APPEARANCE: Well appearing, not in any distress. INITIAL VITAL SIGNS: Temperature 98.6, pulse 116, respiratory rate 20, BP 146/ 98, pulse oximetry 95%. HEENT: Head and face positive. Normal head and face inspection. Eyes: Normal conjunctivae. ENT: Normal pharynx. RESPIRATORY: Clear to auscultation bilaterally. Breath sounds are present and normal. CARDIOVASCULAR: S1 and S2 heard. No murmurs. No gallops. No rubs. No friction. ABDOMEN: Soft. CVA tenderness bilaterally. No palpable masses. Positive bowel sounds in all 4 quadrants and normal. MUSCULOSKELETAL: No abnormality. GENITOURINARY: France catheter in place and draining somewhat light brown urine. SKIN: Warm and dry. No rashes. DIAGNOSTIC STUDIES/LAB DATA: Hematology: WBC elevated at 25.5, RBC 4.83, hemoglobin 14.4, hematocrit 42, MCV 87, MCH 30, MCHC 34, RDW 14, platelet count 265, MPV 7.8, absolute neutrophil count 22.5. Chemistry: Sodium 139, potassium 4.1, chloride 99, carbon dioxide 32, anion gap 8, BUN 20, creatinine 0.94, estimated GFR non- 82.1, BUN/creatinine ratio 21.3, glucose 132, lactic acid 1.8, calcium 9.5. Total bilirubin 0.50, AST 23, ALT 38 , alkaline phosphatase 70. C-reactive protein 114.90. Total protein 6.8, albumin 4.0, globulin 2.8, albumin/globulin ratio 1.4. Urine: Color turbid whitney, appearance turbid, pH of 5.0, specific gravity 1.029, protein 2+, ketones 1+, blood 3+, leukocyte esterase 2+, urine wbc 3+, urine rbc 3+. Ultrasound report: No visible calculi or hydronephrosis. There is a simple- appearing cyst in the superior pole of the right kidney measuring a maximum of 2.3 cm. No right renal calculi or hydronephrosis. No left renal calculi or hydronephrosis. ASSESSMENT AND PLAN: A 59-year-old man who presents today with fever, says fever was 101 at home. He has history of urinary retention and has an indwelling catheter. Per urologist, he has to self-catheterize. He will be admitted and further treatment for urinary tract infection. For urinary tract infection, I will continue with Rocephin 1 g daily. Encourage p.o. food intake. Continue with IV fluid hydration with normal saline. Follow up urine culture and sensitivity. Follow up urology consultation. For seizure, the patient to continue with his home meds, Depakote 1000 mg p.o. q.a.m. and 1250 mg p.o. q.p.m., Vimpat 100 mg p.o. b.i.d., Keppra 1000 mg p.o. b.i.d. For urinary retention probably due to BPH, continue with Flomax 0.4 mg p.o. daily and try voiding trial and self-catheterization should be taught. For hypertension. The patient is to continue with amlodipine 5 mg p.o. daily with holding parameters. Follow up a.m. labs. Fluids and electrolytes will be replaced as needed. The patient will remain full code at this moment. DVT prophylaxis: SCDs. Diet: Regular diet. TIME SPENT: Time spent on this admission was 50 minutes, greater than half of that time was spent face to face with the patient obtaining my history and physical, the other half of the time was spent going over the plan of care with the patient and implementing plan of care. Thank you very much for the opportunity to partake in the healthcare needs of this jaz gentleman. [id number]/[facility] #: [id number] EDWIN
--- NOTE | 2019-11-01 17:10 | PN ---
Hospitalist Progress Note Date of Service: 11/01/19 Mr. Montenegro is a 59 yo male, admitted this morning with concern for fever and UTI; has history of recent admission with concern for seizure disorder and bradycardia. Reports recent visit to urology to have thomas catheter d/c'd and there was concern for acute infection. Currently he endorses feeling tired but denies CP, SOB. Tolerating PO AOx3 Seizure precautions in place RRR Lungs CTA Thomas catheter patent and draining clear whitney urine Continue current plan of care. Ceftriaxone for UTI and urine culture pending Will likely need follow up urology appointment Continue seizure medications per home dosing; seizure precautions Appreciate neurology consult and recommendations
[2019-11-01] MEDS ORDERED: methylPREDNISolone SOD SUCC* 1,000 MG in NS 0.9% 100 ML* 100 ML IVPB ONE (17:30)
[2019-11-01] MEDS ORDERED: Divalproex DR TAB(*) 250 MG PO SCH (18:00)
[2019-11-01] MEDS ORDERED: Tamsulosin CAP* 0.4 MG PO SCH (18:00)
--- NOTE | 2019-11-01 19:43 | CONS ---
CONSULTATION REPORT: DATE OF CONSULT: 11/01/19 LOCATION: He is an inpatient, room 408. HOSPITALIST: Dr. Zapien. CHIEF COMPLAINT: Epilepsy. HISTORY OF PRESENT ILLNESS: Maco is known to me from a hospitalization just recently when he presen rox with new onset of multiple seizures. He had ictal bradycardia while he was in the intensive care unit. 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 He was treated with 3 a nticonvulsants and discharged about a week ago. He was admitted last night with a fever and elevated white blood cell count and was found to have significant urinary tract infection. He has been recei ving ceftriaxone. Since discharge from [place] a week ago, he has not had any seizures. He has not had anymore faint s. MEDICATIONS: Reviewed and he is on: 1. Vimpat 100 mg p.o. b.i.d. 2. Keppra 1000 mg p.o. b.i.d. 3. Flomax 0.4 mg p.o. q.p.m. 4. Colace 100 mg p.o. b.i.d. 5. Depakote 1000 mg p.o. q.a.m. and 1250 mg p.o. q.p.m. 6. Ceftriaxone 1 g IV q.24 hours. 7. Amlodipine 5 mg p.o. every day. PHYSICAL EXAM: Maco was not examined today. DIAGNOSTIC STUDIES/LAB DATA: Includes a CBC with his white blood cell count last night of 25.5 with 22.5% absolute neutrophils. Chemistry profile from last night notable for glucose of 132, a normal c reatinine and BUN. His C-reactive protein last night was elevated at 114.9. Urinalysis from last evening notable for 2+ protein, 1+ ketones, 3+ blood, 2+ leukocyte esterase, 3+ white blood cells, 3+ red blood cells. Laboratory studies from 10/18/19 have come back just today. Spinal fluid paraneoplastic antibodies a re still pending. He has serum positivity for anti- CASPR2 antibodies and he also has titer of 0.21 for voltage-gated potassium channel antibodies. Currently, Maco's seizures are under control. With his ictal bradycardia, I am concerned about tapering medications. He may have an immune- mediated e ncephalitis in addition. Until all of his laboratories are back, I recommend treating with high-dose steroids. We could treat with 1000 mg of Solu-Medrol today and again tomorrow and he could still be discharged home. We coul d have my office arrange for the third dose of IV Solu-Medrol on Monday. Another major issue is whet her or not his anticonvulsants can be safely tapered with his ictal bradycardia. I would like him to see a housekeeper home to possibly having a pacemaker before trying to taper his anticonvulsants. For julian weber, we will continue his triple anticonvulsant therapy. I will likely call the [facility] er next week to further discuss his case after we have his full antibody studies back. I have discus sed this with Maco and his , Daysi, and they are in agreement with the current plan. [id number]/[facility] #: [id number]
[2019-11-01] MEDS ORDERED: cefTRIAXone(*) 1 GM in NS 0.9% 50 ML* 50 ML IVPB SCH (22:00)
[2019-11-02 04:49] LABS: ABS Lymphocytes 0.3 10^3/ul (1.0-4.8); ABS Monocytes 0.1 10^3/ul (0-0.8); ABS Neutrophils 9.4 10^3/ul (1.5-7.7); Hematocrit 39 % (42-52); Hemoglobin 13.7 g/dL (14.0-18.0); Lymphocyte % 3.5 %; Mean Corpuscular HGB Conc 35 g/dL (31-36); Mean Corpuscular Hemoglobin 30 pg (27-31); Mean Corpuscular Volume 86 fL (80-94); Mean Platelet Volume 7.3 fL (7.4-10.4); Platelet Count 234 10^3/uL (150-450); Red Blood Count 4.56 10^6 /uL (4.18-5.48); Red Cell Distribution Width 14 % (10-15); White Blood Count 9.9 10^3/uL (3.5-10.8)
[2019-11-02 05:04] LABS: BUN/Creatinine Ratio 23.3 (8-20); C Reactive Protein 127.16 mg/L (<8.01); Calcium 8.5 mg/dL (8.6-10.3); EGFR African American 166.9 (>60); EGFR Non-African American 137.9 (>60); Potassium 3.2 mmol/L (3.5-5.0)
[2019-11-02] MEDS ORDERED: methylPREDNISolone SOD SUCC* 1,000 MG in NS 0.9% 100 ML* 100 ML IVPB ONE (08:00)
[2019-11-02] MEDS: NS 0.9% 1000 ML** 1,000 ML IV SCH (09:03)
[2019-11-02] MEDS: Divalproex DR TAB(*) 500 MG PO SCH (09:10)
[2019-11-02] MEDS: amLODIPine TAB* 5 MG PO SCH (09:10)
[2019-11-02] MEDS: Lacosamide TAB* 100 MG TAB PO SCH (09:10)
[2019-11-02] MEDS: levETIRAcetam TAB* 500 MG PO SCH (09:11)
[2019-11-02] MEDS: Docusate CAP* 100 MG PO SCH (09:13)
[2019-11-02] MEDS ORDERED: Potassium Chlor TAB* 20 MEQ TAB.ER PO ONE (09:51)
[2019-11-02 10:24] VITALS: BP 130/84
--- NOTE | 2019-11-02 20:08 | DS ---
CC: Dr. Theron Saxena * MEDICINE DISCHARGE SUMMARY: DATE OF ADMISSION: 11/01/19 DATE OF DISCHARGE: 11/02/19 PROVIDER: Sara Zelaya NP ATTENDING PHYSICIAN: Dr. Laura Vergara * (dictated by Sara Zelaya NP). PRIMARY CARE PROVIDER: Dr. Theron Saxena. PRIMARY DISCHARGE DIAGNOSES: 1. Urinary tract infection with extended-spectrum beta-lactamase Escherichia coli. 2. Urinary retention, requiring France catheter placement. SECONDARY DISCHARGE DIAGNOSES: 1. Seizure disorder, recently diagnosed. 2. Childhood asthma. 3. Environmental allergies. MEDICATIONS AT DISCHARGE: 1. Keppra 1000 mg b.i.d. 2. Flomax 0.4 mg q.p.m. 3. Vimpat [address]d. 4. [address] 1000 mg q.a.m. and 1250 mg q.p.m. 5. Amlodipine 5 mg daily. 6. Ciprofloxacin 500 mg b.i.d. This was initiated prior to admission and will be continued on discharge due to the urine culture results. A new script was sent to the pharmacy. HOSPITAL COURSE OF STAY: For full details, please refer to the H and P provided by Dr. Zapien on 11/01/19. In summary, this is a very pleasant 59-year -old male who presented to the ER on 11/01/19 with fever. He was reported to have a 101 temp at home and took antipyretics prior to presentation. He had originally been hospitalized at [facility] on 10/17/19 with concern for seizures with associated bradycardia and he was transferred to [facility]. He also had associated urinary retention which resulted in insertion of a [place] catheter. He had followup with Dr. Munoz as an outpatient and was hoping to have the catheter discontinued, but then was found to have concern for a new UTI. He was started on Cipro as an outpatient and had taken 2 doses prior to presenting to the ER. He was admitted and started on ceftriaxone. He had good response with no recorded fevers while here in the hospital. He did have initial white blood cell count of 25,000, which has since resolved to 9000 and normalized. He was also seen in consultation by Dr. Alegre on 11/01/19 as a followup to Maco's previous seizure diagnosis. He had laboratory studies from 10/18/19 that had returned with concern for spinal fluid paraneoplastic antibodies that are still pending, but he has serum positivity for anti-CASPR2 antibodies and a titer for voltage-gated potassium channel antibodies. Per Dr. Alegre, Mr. Montenegro was treated with 1000 mg of Solu-Medrol on 11/01/19, and again on 11/02/19, and per his instruction, Mr. Montenegro is okay to discharge home today with a plan to have a third dose of IV Solu-Medrol on Monday, which Dr. Alegre will arrange for through his outpatient office. Again, Mr. Montenegro appropriately responded to antibiotics. His urine culture collected here in the ER showed no growth; however, in following the culture that was collected outpatient at Dr. Saxena's office, he was found to have ESBL E. coli that was resistant to cephalosporins. We have switched him back to ciprofloxacin, which he was previously taking and we will continue this for at least 2 weeks. I gave him an additional 10 days of medications with plan to follow up with his PCP and Dr. Munoz. DISCHARGE INSTRUCTIONS: Again, he has been advised to call Dr. Alegre's office on Monday to determine how he will receive his Solu-Medrol infusion. He is advised to call Dr. Munoz for followup appointment for evaluation of urinary retention and he will follow up with his PCP in 7 to 10 days. PHYSICAL EXAMINATION: Vital Signs: Temp 97.5, pulse rate 81, respiratory rate 16, blood pressure 130/84, O2 saturation 99%. General: This is a very pleasant 59- year-old male seen lying in bed, in no acute distress. HEENT: Head is atraumatic, normocephalic. Pupils are equal, round, and reactive to light and accommodation. Extraocular movements are intact. Oral mucosa is moist. Neck is supple without JVD or lymphadenopathy. There is full range of motion. Cardiac: Regular rate and rhythm with normal S1, S2 heart sounds. Lungs: Clear to auscultation. Abdomen is soft, nontender, nondistended with normoactive bowel sounds. : There is a [place] catheter draining clear whitney urine. Musculoskeletal: Active range of motion times all 4 extremities. Neuro : He is alert and oriented x3 with no focal deficits. OUTPATIENT FOLLOWUP NEEDS: As per above. He is to follow up with Dr. Munoz, Dr. Alegre, Dr. Saxena. ACTIVITY: As tolerated. CONDITION: Improved, stable. DISPOSITION: To home. DIET: May resume previous diet. TIME SPENT: Approximately 40 minutes was spent on this discharge. Again, this is only a brief summary of the patient's hospital course of stay. For full details, please refer to the full medical record. If you have further questions or need further assistance, please feel to contact me at [phone]. SARA ZELAYA, MEDICATION TECHNICIAN [id number]/[facility] #: [id number] [place]
[2019-11-02] MEDS ORDERED: Ciprofloxacin TAB* 500 MG PO SCH (21:00)
== END 2019-11-02 17:30 | disposition home or self-care (01) | DRG 690 ==
LOC: ED 19:40 → MED 11-01 06:27
PROVIDERS: ADMIT Family Medicine; ATTEND Internal Medicine
DX: N39.0 Urinary tract infection, site not specified (principal); G40.909 Epilepsy, unspecified, not intractable, without status epilepticus; B96.29 Other Escherichia coli [E. coli] as the cause of diseases classified elsewhere; R33.9 Retention of urine, unspecified; J45.909 Unspecified asthma, uncomplicated; Z79.899 Other long term (current) drug therapy; Z28.21 Immunization not carried out because of patient refusal; Z91.048 Other nonmedicinal substance allergy status
CPT/HCPCS: 36415; 71046; 76775; 80048; 80053; 81003; 81015; 83605; 85025; 86140; 87040; 87086; 96365; 99285; A9270-GY; J0696; J2930

== ENCOUNTER → 2019-11-18 12:05 | Day surgery (SDC) | payer OTHER ==
[~2019-11-18 12:05] MED LIST changes: +Acetaminophen TAB* 325 MG PO PRN; +Diazepam TAB(*) 5 MG ONE; +Diazepam TAB(*) 5 MG PO ONE; +Flumazenil* 0.1 MG/ML 5 ML MDV ONE; +Lidocaine 1% INJ* 10 MG/ML 30 ML SDV ONE; +Midazolam* 1 MG/ML 5 ML VIAL (5 MG) ONE; +NS 0.9% 1000 ML** 1,000 ML IV SCH; +Naloxone* 0.4 MG/ML 1 ML VIAL ONE; +ceFAZolin VIAL 1 GM in NS *SYRINGE * * 10 ML ONE; +ceFAZolin* 2 GM* ONE DOSE (Duplex) IVPB; +fentaNYL* 50 MCG/ML 2 ML VIAL (100 MCG VIAL) ONE; -levETIRAcetam 500 MG IVPREMIX* 500 MG/100 ML BAG IV SCH
[2019-11-18 15:53] VITALS: BP 130/86
--- NOTE | 2019-11-18 18:55 | OP ---
CC: Dr. Mulugeta Boston * DATE OF OPERATION: 11/18/19 - [facility] CATH DATE OF : 60 SURGEON: Michael Baltazar MD ANESTHESIA: Local anesthesia with conscious sedation. PRE-OP DIAGNOSES: 1. Bradycardia. 2. Asystole. 3. Seizures. POST-OP DIAGNOSES: 1. Bradycardia. 2. Asystole. 3. Seizures. OPERATIVE PROCEDURE: Single-chamber pacemaker implantation. ESTIMATED BLOOD LOSS: Nil. COMPLICATIONS: None. INDICATIONS: The patient is a 59-year-old gentleman who was admitted to the hospital recently with episodes of unresponsiveness originally thought to be bradyarrhythmias. Ultimately, the patient was diagnosed with seizures; but, associated with the seizures, was also 7 to 9 seconds of asystole during the midst of his seizure. The patient was treated with anticonvulsive medications; however, Neurology was not convinced that there is complete control of his seizures and the patient is at high risk for severe bradycardia with subsequent seizures. Permanent pacemaker was recommended. DESCRIPTION OF PROCEDURE: The patient was in a fasting state. Informed consent had been obtained prior to the procedure. All labs had been reviewed. The patient was placed supine on the procedure table. His pectoral area was cleaned and draped in the usual fashion. 1% lidocaine was used for local anesthesia. Under ultrasound guidance, the axillary vein was entered using a Seldinger technique and a guidewire was placed. A 3.5 cm incision was made in the pectoral area. Blunt dissection was carried down to the pectoral fascia. A pocket was fashioned for the pacemaker. Over the guidewire, a 7-Indonesian sheath introducer was placed through which a right ventricular lead was advanced to the RV apex. The right ventricular lead is a Medtronic model 5076, serial number [id number]. It had an R-wave sensitivity of 5.3, impedance 1279 ohms, threshold 1 volt at 0.5 milliseconds. The ventricular lead was sutured to the pectoral fascia. The pocket was flushed antibiotic-infused normal saline. A generator was attached to the ventricular lead. The generator is a Medtronic model W3SR01, serial number [id number]. The device was placed in the pocket. The surgical incision was closed in 3 layers. The patient was returned to the holding area in stable condition. [id number]/[facility] #: [id number] [facility]
== END | disposition home or self-care (01) ==
LOC: CHICATH 12:05
PROVIDERS: ATTEND Specialist
DX: I49.5 Sick sinus syndrome (principal); G40.89 Other seizures; I10 Essential (primary) hypertension; G90.1 Familial dysautonomia [Riley-Day]; G93.81 Temporal sclerosis
CPT/HCPCS: 33207; 71045; 93005; 99156; 99157; A9270-GY; C1786; C1892; C1898; J0690; J2250; J2310; J3010